=== PATIENT | female | born 1970 | race Caucasian/White ===

== ENCOUNTER → 2016-08-12 | Outpatient (CLI) | payer BC ==
--- NOTE | 2016-08-13 10:34 | MM ---
Reason for exam: screening (asymptomatic). Last mammogram was performed 1 year and 1 month ago. History: Family history of breast cancer in maternal aunt at age 55 and premenopausal breast cancer in maternal grandmother at age 45. Took hormonal contraceptives for 6 years beginning at age 20. Physical Findings: A clinical breast exam by your physician is recommended on an annual basis and results should be correlated with mammographic findings. MG Screening Mammo w CAD Bilateral CC and MLO view(s) were taken. Prior study comparison: July 23, 2015, bilateral MG 3d diag mammo w/cad ELISA. December 17, 2014, left breast MG diagnostic mammo LT w CAD. The breast tissue is extremely dense which could obscure a lesion on mammography. Finding: There are typically benign calcifications in the left breast. No significant changes in finding since July 23, 2015 and December 17, 2014. ASSESSMENT: Benign, BI-RAD 2 RECOMMENDATION: Routine screening mammogram of both breasts in 1 year.
== END | disposition home or self-care (01) ==
LOC: RADMAMWWP 15:39
PROVIDERS: ATTEND Family Medicine
DX: Z12.31 Encounter for screening mammogram for malignant neoplasm of breast (principal)

== ENCOUNTER → 2017-10-14 | Outpatient (CLI) | payer BC ==
--- NOTE | 2017-10-18 07:52 | MM ---
Reason for exam: screening (asymptomatic). Last mammogram was performed 1 year and 2 months ago. History: Family history of breast cancer in maternal aunt at age 55 and premenopausal breast cancer in maternal grandmother at age 45. Took hormonal contraceptives for 6 years beginning at age 20. Physical Findings: A clinical breast exam by your physician is recommended on an annual basis and results should be correlated with mammographic findings. MG 3D Screening Mammo W/Cad Bilateral CC and MLO view(s) were taken. Prior study comparison: August 12, 2016, bilateral MG screening mammo w CAD. July 23, 2015, bilateral MG 3d diag mammo w/cad ELISA. The breast tissue is heterogeneously dense. This may lower the sensitivity of mammography. No significant changes when compared with prior studies. ASSESSMENT: Negative, BI-RAD 1 RECOMMENDATION: Routine screening mammogram of both breasts in 1 year.
== END | disposition home or self-care (01) ==
LOC: RADMAMWWP 13:54
PROVIDERS: ATTEND Family Medicine
DX: Z12.31 Encounter for screening mammogram for malignant neoplasm of breast (principal)
CPT/HCPCS: 77063; 77067

== ENCOUNTER → 2018-01-23 | Outpatient (CLI) | payer BC ==
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
== END | disposition home or self-care (01) ==
LOC: RADMRIMAIN 14:48
PROVIDERS: ATTEND Orthopaedic Surgery
DX: M48.02 Spinal stenosis, cervical region (principal); M99.71 Connective tissue and disc stenosis of intervertebral foramina of cervical region; M50.222 Other cervical disc displacement at C5-C6 level; M47.812 Spondylosis without myelopathy or radiculopathy, cervical region; M50.30 Other cervical disc degeneration, unspecified cervical region
CPT/HCPCS: 72141

== ENCOUNTER → 2018-03-13 | Outpatient (CLI) | payer BC ==
[2018-03-09 13:30] VITALS: BMI 20.5
[2018-03-13 14:03] VITALS: BP 126/78; PULSE 83; RESP 16; TEMP 98.3
--- NOTE | 2018-03-13 14:40 | P.PAINCN ---
History of Present Illness - Reason for Consult Consult date: 03/13/18 - History of Present Illness This is 47 years old female with a chronic history of severe neck pain with radiation to the right upper extremity, started in December 2016 after she was lifting boxes at work, the pain is constant and increases with any neck movement or any activity, she was treated with nonsteroidal anti-inflammatory medications, with only minimal improvement and later on she had physical therapy with some benefit, but she continued to have severe neck pain with occasional headaches, the neck pain that radiated to the right upper extremity associated with numbness and tingling sensation, she denies any fever or night sweats she denies any change in the bowel movement or urination, no motor or sensory deficit Past Medical History Past Medical History: Chest Pain / Angina, GERD/Reflux, Myocardial Infarction ( [place]), Musculoskeletal Disorder, Supraventricular Tachycardia (SVT) Additional Past Medical History / Comment(s): HX SVT HAD ABLATION , "CORONARY ARTERY SPASMS ", KIDNEY STONE. RT NECK PAIN W/ EDEMA IN UPPER SHOULDER, WEAKNESS/NUMBNESS RT HAND. LOWER BACK PAIN. Last Myocardial Infarction Date:: 2013 History of Any Multi-Drug Resistant Organisms: None Reported Past Surgical History: Cardiac Ablation, Cholecystectomy, Hysterectomy Additional Past Surgical History / Comment(s): KIDNEY STONE REMOVED. PARTIAL HYSTERECTOMY Past Anesthesia/Blood Transfusion Reactions: Motion Sickness, Postoperative Nausea & Vomiting (PONV) Smoking Status: Never smoker - Past Family History Father Additional Family Medical History / Comment(s): VALVE REPLACEMENT, ANEURYSM Mother Family Medical History: Cancer Additional Family Medical History / Comment(s): CARDIAC STENTS Medications and Allergies Home Medications Medication Instructions Recorded Confirmed Type Zolpidem Tartrate 10 mg PO HS PRN 02/12/14 03/13/18 History Aspirin EC [Ecotrin Low Dose] 81 mg PO DAILY #30 tablet. 02/14/14 03/13/18 Rx Diltiazem Cd [Cardizem CD] 120 mg PO QAM 03/25/15 03/13/18 History Cyclobenzaprine [Flexeril] 10 mg PO BID PRN 03/09/18 03/13/18 History Duexis 1 tab PO TID PRN 03/09/18 03/13/18 History Allergies Allergy/AdvReac Type Severity Reaction Status Date / Time codeine AdvReac Nausea & Verified 03/13/18 13:54 Vomiting Physical Exam Vitals: Vital Signs Temp Pulse Resp BP Pulse Ox 03/13/18 13:59 98.3 F 83 16 126/78 99 Social history : not smoker , NO ETOH , NO Illegal drugs use . Family history : positive for Review of Systems : 1- Constitutional : no chills , no fever , no night sweats , 2- Ears : no ear discharge , no change in hearing 3-Nose, Mouth ,Throat ; no bleeding gums, no sore throat , no epistaxis , 4-Cardiovascular : Denies chest pain, , no orthopnea , no palpitation 5-Respiratory : Denies cough , no dyspnea , no hemoptysis 6-Gastrointestinal :, no change in bowel habits , no coffee- ground emesis . 7-Genitourinary : No hematuria , no discharge , no incontinence, 8-Musculoskeletal : No gait dysfunction , report low back pain , 9- Neurological : no ataxia , no tremor , no sezure , 10-Psychatric , no suicidal ideation no hallucination 11- Endocrine : no cold intolerence , no polyuria , no polydypsia , 12-Hematologic : no easy bleeding , no easy brusing , 13-Allergic / immunology : no angioedema , no wheezing ,no allergic rhinitis 14-Integumentary : no brttle nails , no change hair / nails , no foot/leg ulcers . Physical Examinations : 1-Constitutional : Cooperative , not in acute distress . 2-HEENT : nech ; supple , no Lymphadenopathy , no Thyromegaly , :eyes , no icterus, no photophobia . ENT : , normal oropharynx , no Thrush 3- Respiratory : Chest clear to auscultations Bilaterally , no wheezing . 4- Cardiovascular : regular rate and rhythem , S1 , S2 , no S3 , no S4. 5- Gastrointestinal: abdomen soft no tenderness , no organomegally . 6- Genitourinary : Defferred . 7-Integumentary : No cellulitis , no ulcers , normal skin turgor , no cyanotic . 8- neurologic : Cranial nerve II to XII intact , no focal neurological deffecit 9-psychatric : alert , oriented X 3 , appropriate affect , intact judgment and insight . 10-Lymphatic : no Lymphadenopathy. 11- musculoskeltal: normal gait Cervical Spine motor stregnth in the deltoid and biceps, normal right side , normal Left side motor stregnth biceps and the wrist extensors normal right side ,normal left side . motor stregnth in the triceps muscle . normal Right side , normal Left side deep tendon reflexes normal at the biceps , normal at Brachioradialis , normal at triceps. positive cervical facet loading test . Lumber spine moter stegnth lower extremities ,thigh and legs 5/5 Right side , 5/5 Left side Results Comments: MRI of the cervical spine done January 2018, C6 7 and C7-T1 disc herniation, cervical spondylosis and foraminal narrowing Assessment and Plan Plan: Assessment and plan= cervical radiculopathy , cervical disc herniation, cervical spondylosis And could benefit from cervical epidural steroid injections under fluoroscopy guidance at C7-T1 , we will do the procedure twice, and if she continued to have pain then we will consider targeting the facetogenic component , Patient currently using Flexeril 10 mg when necessary, and Duexis Time with Patient: Greater than 30 PQRS Measure Charge Sheet Measure #130: Documentation of Current Meds in Medical Chart: Patient's medications documented in chart Measure #226: Tobacco Use: Screen & Cessation Intervention: Pt not a tobacco user Measure #111: Pneumonia Vaccination: Pneumococcal vaccine NOT administered or previously given Measure #47: Advance Care Plan: Advance care planning discussed & documented, pt chose/unable to give Measure #412: Opioid Treatment Agreement: No documentation of signed opioid treatment agreement Measure #408: Opioid Therapy Follow-up Evaluation: Patient had NO f/u eval minimum every 3 months during opioid therapy Measure #317: Preventitive Care & Scrn High Bld Press & F/U: Normal blood pressure, f/u not required Measure #128: Body Mass Index (BMI) Screening & Follow-up: BMI documented ABOVE normal parameters - f/u documented Measure #131: Pain Assessment & Follow-up: Pain positive & plan documented, Follow-up scheduled Measure #431: Unhealthy Alcohol Use Preventative Care & Scrn: Patient not identified as an unhealthy alcohol user PQRS Narrative: Smoking Status Never smoker Do You Want the Pneumonia No Vaccine AT THIS TIME? Blood Pressure 126/78 Pain Intensity [Right 3 Posterior Neck] Scale Used Numeric (1 - 10) Hx Alcohol Use (MH) No: OCCASIONAL. Home Medications: Ambulatory Orders Zolpidem Tartrate 10 mg PO HS PRN 02/12/14 Aspirin EC [Ecotrin Low Dose] 81 mg PO DAILY #30 tablet. 02/14/14 Diltiazem Cd [Cardizem CD] 120 mg PO QAM 03/25/15 Cyclobenzaprine [Flexeril] 10 mg PO BID PRN 03/09/18 Duexis 1 tab PO TID PRN 03/09/18
== END | disposition home or self-care (01) ==
LOC: PNWHC3 13:10
PROVIDERS: ATTEND Specialist
DX: M50.123 Cervical disc disorder at C6-C7 level with radiculopathy (principal); M47.22 Other spondylosis with radiculopathy, cervical region; K21.9 Gastro-esophageal reflux disease without esophagitis; I25.2 Old myocardial infarction; Z90.49 Acquired absence of other specified parts of digestive tract; Z90.710 Acquired absence of both cervix and uterus; Z79.899 Other long term (current) drug therapy; Z79.82 Long term (current) use of aspirin; Z88.5 Allergy status to narcotic agent; Z98.890 Other specified postprocedural states
CPT/HCPCS: 99211

== ENCOUNTER 2018-03-23 06:16 | Day surgery (SDC) | payer BC ==
[2018-03-20 09:48] VITALS: BMI 20.5
[2018-03-23 06:43] VITALS: TEMP 98.1
[2018-03-23] MEDS: LACTATED RINGERS 1,000 ML IV SCH ×2 (06:53→07:00)
[2018-03-23] MEDS ORDERED: LIDOCAINE 1% 20 ML VIAL (10MG/ML) FOR IV START INTRADERMA ONE (06:53)
--- NOTE | 2018-03-23 07:25 | P.PCN ---
Date of Procedure: 03/23/18 Procedure(s) Performed: PROCEDURE 1. Cervical epidural steroid injection under fluoroscopic guidance, C7-T1 2. Cervical epidurogram. PREOPERATIVE DIAGNOSIS: 1- Cervical herniated Disc Diseases 2- Cervical radiculopathy., 3-cervical spondylosis with cervical Facet arthropathy without myelopathy POSTOPERATIVE DIAGNOSIS: : 1- Cervical herniated Disc Diseases , 2- Cervical radiculopathy. 3-,cervical spondylosis with cervical Facet arthropathy without myelopathy ANESTHESIA: Local anesthesia with 1% lidocaine and IV sedation with Versed 2 mg and Fentanyl 50 mcg. EBL 0 PROCEDURE INDICATION: The patient with neck pain and radiculitis unresponsive to conservative treatment consents for procedure. PROCEDURE DESCRIPTION / TECHNIQUE: The patient was seen and identified in the preoperative area. Risks, benefits, complications, including but not limited to infections ,bleeding , allergic reactions to the medications ,and not complete pain releife, and alternatives were discussed with the patient, the patient agreed to proceed with the procedure and signed the consent. Patient was taken to the OR and time out was completed. The patient was placed in the prone position on the procedure table. A pillow was placed under the patients chest to increase the cervical interlaminar space. The cervical area was prepped and draped in the usual sterile fashion. Vital signs were closely monitored during the procedure. Conscious sedation was used during the procedure to decrease patients anxiety. Using anterior-posterior fluoroscopy, the C7-T1 interlaminar space was identified and the skin over this site was marked and then infiltrated with 1% lidocaine subcutaneously. Subsequently, a 20-gauge 3-1/2-inch Tuohy epidural needle was inserted and advanced toward the epidural space by means of the `` hanging-drop technique and guided by AP and lateral fluoroscopy. The correct needle position in the epidural space was verified with the injection of 2 mL of the water soluble contrast dye [id number]-200 and observing an excellent epidurogram with the epidural spread of the dye, after negative aspiration for blood and CSF and in the absence of paresthesias. Again after negative aspiration, mixture containing 20 mg Dexamethasone and 2 ml of preservative- free normal saline injected and a washout of epidurogram was seen. Needle was withdrawn intact, skin was cleansed, and bandages were applied. Complications= none. Disposition= patient was placed in supine position and transferred to the recovery room area in stable condition and there was no evidence of upper or lower extremity motor or sensory deficit after the procedure patient was discharged from recovery room after discharge criteria met and home discharge instructions was given by the staff and patient will follow with the pain clinic in 2-4 weeks
[2018-03-23] MEDS ORDERED: IV FLUID CONTINUATION 1,000 ML IV ONE (07:36)
[2018-03-23 07:49] VITALS: BP 127/84; PULSE 73; RESP 18
--- NOTE | 2018-03-23 08:08 | FL ---
EXAMINATION TYPE: FL guided pain mgmt statistic DATE OF EXAM: 03/23/2018 COMPARISON: NONE HISTORY: Neck pain TECHNIQUE: Fluoroscopy. FINDINGS/IMPRESSION: Fluoroscopic guidance was provided during procedure performed by Dr. Puente. A total of 5 seconds of fluoroscopic time was utilized during the procedure and 1 spot images was ac quired demonstrating localization of the cervical spine.
== END 2018-03-23 07:55 | disposition home or self-care (01) ==
LOC: ORPAIN 06:16
PROVIDERS: ATTEND Specialist
DX: M50.10 Cervical disc disorder with radiculopathy, unspecified cervical region (principal); M47.22 Other spondylosis with radiculopathy, cervical region; K21.9 Gastro-esophageal reflux disease without esophagitis; I47.1 Supraventricular tachycardia; I25.2 Old myocardial infarction; Z79.82 Long term (current) use of aspirin; Z79.899 Other long term (current) drug therapy; Z87.442 Personal history of urinary calculi; Z90.49 Acquired absence of other specified parts of digestive tract; Z90.710 Acquired absence of both cervix and uterus; Z88.5 Allergy status to narcotic agent
CPT/HCPCS: 62321; J2250; J1100; J3010; Q9966

== ENCOUNTER 2018-05-10 07:33 | Day surgery (SDC) | payer BC ==
[2018-05-08 10:52] VITALS: BMI 20.5
[2018-05-10] MEDS ORDERED: LACTATED RINGERS 1,000 ML IV SCH (07:45)
[2018-05-10 07:53] VITALS: RESP 16; TEMP 98.7
[2018-05-10] MEDS ORDERED: LIDOCAINE 1% 20 ML VIAL (10MG/ML) FOR IV START INTRADERMA ONE (07:59)
[2018-05-10] MEDS ORDERED: IV FLUID CONTINUATION 1,000 ML IV ONE ×2 (08:35)
--- NOTE | 2018-05-10 08:42 | P.PCN ---
Date of Procedure: 05/10/18 Surgeon: Gume Norris Description of Procedure: PREOPERATIVE DIAGNOSIS: Cervical radiculopathy Cervical degenerative disc disease POSTOPERATIVE DIAGNOSIS: Cervical radiculopathy Cervical degenerative disc disease PROCEDURE Cervical neural steroid injection under fluoroscopic guidance at the C7-T1 interspace. ANESTHESIA: Local with 1% lidocaine 3 ml and IV sedation with Versed 2 mg, 50 g of fentanyl EBL: Minimal PROCEDURE INDICATION: The patient with cervical radicular symptoms unresponsive to conservative treatment. Fluoroscopy was used to optimize visualization of the needle placement and to maximize safety. PROCEDURE DESCRIPTION / TECHNIQUE: The patient was seen and identified in the preoperative area. Risks, benefits , complications including but not limited to infections ,bleeding ,allergic reaction to the medications ,nerve damage and incomplete pain relief, and alternatives were discussed with the patient. The patient agreed to proceed with the procedure and signed the consent. IV was started, and vital signs were stable. Patient was taken to the OR and time out was completed. The patient was placed in the prone position on procedure table and a pillow was placed under the chest area.. The cervical area was prepped and draped in the usual sterile fashion. Conscious sedation was used during the procedure to decrease patient s anxiety. Vital signs was monitered during the entire procedure. Using anterior-posterior fluoroscopy, the C7-T1 interlaminar space was identified and the skin over this site was marked and then infiltrated with 1% lidocaine subcutaneously. Subsequently, a 20-gauge Tuohy epidural needle was inserted and advanced toward the epidural space using the loss of resistance technique and guided by AP and lateral fluoroscopy. The correct needle position in the epidural space was verified with the injection of contrast and observing an excellent epidurogram with the epidural spread of the dye, after negative aspiration for blood and CSF and in the absence of paresthesias. Again after negative aspiration, a 4 ml mixture containing 80 mg of Decadron and 2 mL of preservative-free normal saline was injected. Needle was withdrawn intact , skin was cleansed, and bandages were applied. COMPLICATIONS: None DISPOSITION / PLANS: The patient was placed in a supine position and transferred to the recovery area in a stable condition for observation. There was no evidence of lower extremity motor or sensory deficit after the procedure. Patient was discharged from the recovery room after meeting discharge criteria. Home discharge instructions were given to the patient by the staff. The patient was reexamined prior to discharge. The patient will schedule a follow up in the clinic in 2-4 weeks. Preoperative Diagnosis: myofascial pain syndrome of right trapezius Postoperative diagnosis: Same Anesthesia: Local Surgeon: Gume Norris MD Indications for procedure: This is a patient with myofascial pain and palpable trigger points in right trapezius muscles. The patient consents for an injection after an explanation of risks including but not limited to bleeding and infection, benefits, and alternatives and the patient has signed a consent form indicating understanding of all of them. Description of procedure: After informed consent was obtained the patient's back was sterilely prepped in the usual fashion with ChloraPrep. 3 trigger points were identified via palpation of the indicated muscles and marked sterilely. Each trigger point was injected with a 25-gauge half inch needle, with 1 mL of solution consisting of 0.5% bupivacaine. The patient's vital signs were stable afterwards and the procedure was tolerated well. Patient was discharged home with follow-up instructions.
[2018-05-10 08:53] VITALS: BP 120/78; PULSE 77
--- NOTE | 2018-05-15 13:23 | FL ---
EXAMINATION TYPE: FL guided pain mgmt statistic DATE OF EXAM: 05/10/2018 COMPARISON: NONE HISTORY: Back pain TECHNIQUE: Fluoroscopy. FINDINGS/IMPRESSION: Fluoroscopic guidance was provided during procedure performed by Dr. Norris. A total of 2 seconds of fluoroscopic time was utilized during the procedure and 1 spot images was acqu ired demonstrating localization of the thoracic spine.
== END 2018-05-10 09:12 | disposition home or self-care (01) ==
LOC: ORPAIN 07:33
PROVIDERS: ATTEND Pain Medicine Pain Medicine
DX: M50.10 Cervical disc disorder with radiculopathy, unspecified cervical region (principal)
CPT/HCPCS: 20552; 62321; J2250; J1030; J3010; Q9966; 20553; 99152

== ENCOUNTER → 2018-06-05 | Outpatient (CLI) | payer BC ==
[2018-06-05 13:23] VITALS: BP 131/74; PULSE 89; RESP 16
--- NOTE | 2018-06-05 15:09 | P.PAINPG ---
Subjective Progress Note Date: 06/05/18 This is a follow-up visit for this ,47 years old female with a chronic history of severe neck pain with radiation to the right upper extremity, started in December 2016 after she was lifting boxes at work, the pain is constant and increases with any neck movement or any activity, she was treated with nonsteroidal anti- inflammatory medications, with only minimal improvement and later on she had physical therapy with some benefit, but she continued to have severe neck pain with occasional headaches, the neck pain that radiated to the right upper extremity associated with numbness and tingling sensation, she denies any fever or night sweats she denies any change in the bowel movement or urination, no motor or sensory deficit, with done epidural steroid injection 3 , she continued to have severe neck pain and currently the pain localized in the right side and is not radiated to the left side, and the pain radiated towards the shoulder blade area on the right side, the intensity of the pain increases with any activity Physical Examinations : 1-Constitutional : Cooperative , not in acute distress . 2-HEENT : nech ; supple , no Lymphadenopathy , no Thyromegaly , :eyes , no icterus, no photophobia . ENT : , normal oropharynx , no Thrush 3- Respiratory : Chest clear to auscultations Bilaterally , no wheezing . 4- Cardiovascular : regular rate and rhythem , S1 , S2 , no S3 , no S4. 5- Gastrointestinal: abdomen soft no tenderness , no organomegally . 6- Genitourinary : Defferred . 7-Integumentary : No cellulitis , no ulcers , normal skin turgor , no cyanotic . 8- neurologic : Cranial nerve II to XII intact , no focal neurological deffecit 9-psychatric : alert , oriented X 3 , appropriate affect , intact judgment and insight . 10-Lymphatic : no Lymphadenopathy. 11- musculoskeltal: normal gait Cervical Spine motor stregnth in the deltoid and biceps, normal right side , normal Left side motor stregnth biceps and the wrist extensors normal right side ,normal left side . motor stregnth in the triceps muscle . normal Right side , normal Left side deep tendon reflexes normal at the biceps , normal at Brachioradialis , normal at triceps. positive cervical facet loading test . Lumber spine moter stegnth lower extremities ,thigh and legs 5/5 Right side , 5/5 Left side MRI of the cervical spine done January 2018, C6 7 and C7-T1 disc herniation, cervical spondylosis and foraminal narrowing Assessment and plan= cervical radiculopathy , cervical disc herniation, cervical spondylosis with cervical facet arthropathy Patient continued to have severe neck pain after cervical epidural steroid injection 3. Patient will be scheduled to have diagnostic medial branch cervical area C4 5, C5 6, C6 7 on the right side (she had pain only on the right Patient currently using Flexeril 10 mg when necessary, and Duexis Objective - Vital Signs Vital signs: Vital Signs Temp Pulse 89 06/05/18 13:13 Resp 16 06/05/18 13:13 BP 131/74 06/05/18 13:13 Pulse Ox 89 L 06/05/18 13:13 Intake & Output 06/04/18 06/05/18 06/05/18 18:59 06:59 18:59 Weight 61.235 kg PQRS Measure Charge Sheet Measure #130: Documentation of Current Meds in Medical Chart: Patient's medications documented in chart Measure #226: Tobacco Use: Screen & Cessation Intervention: Pt not a tobacco user Measure #111: Pneumonia Vaccination: Pneumococcal vaccine NOT administered or previously given Measure #47: Advance Care Plan: Advance care planning discussed & documented, pt chose/unable to give Measure #412: Opioid Treatment Agreement: No documentation of signed opioid treatment agreement Measure #408: Opioid Therapy Follow-up Evaluation: Patient had NO f/u eval minimum every 3 months during opioid therapy Measure #317: Preventitive Care & Scrn High Bld Press & F/U: Normal blood pressure, f/u not required Measure #128: Body Mass Index (BMI) Screening & Follow-up: BMI documented within normal parameters Measure #131: Pain Assessment & Follow-up: Pain positive & plan documented, Follow-up scheduled Measure #431: Unhealthy Alcohol Use Preventative Care & Scrn: Patient not identified as an unhealthy alcohol user PQRS Narrative: Smoking Status Never smoker Do You Want the Pneumonia No Vaccine AT THIS TIME? Blood Pressure 131/74 Pain Intensity [Right Neck] 4 Scale Used Numeric (1 - 10) Hx Alcohol Use (MH) No: OCCASIONAL. Home Medications: Ambulatory Orders Zolpidem Tartrate 10 mg PO HS PRN 02/12/14 Aspirin EC [Ecotrin Low Dose] 81 mg PO DAILY #30 tablet. 02/14/14 Diltiazem Cd [Cardizem CD] 120 mg PO QAM 03/25/15 Cyclobenzaprine [Flexeril] 10 mg PO BID PRN 03/09/18 Duexis 1 each PO TID PRN 03/09/18 Vitamin C 1 tab PO DAILY 06/05/18 Controlled Substance Measures - Controlled Substance Measures Is patient prescribed a controlled substance at discharge?: No When asked, does pt state using other controlled substances?: No If prescribed controlled substance>3 days was MAPS reviewed?: No If Rx opioid, was Start Talking consent form obtained?: No If opioid is for acute pain is fill amount 7 days or less?: No Was information provided regarding opioid addiction?: No
== END | disposition home or self-care (01) ==
LOC: PNWHC3 12:43
PROVIDERS: ATTEND Specialist
DX: M99.71 Connective tissue and disc stenosis of intervertebral foramina of cervical region (principal); M50.123 Cervical disc disorder at C6-C7 level with radiculopathy; M47.22 Other spondylosis with radiculopathy, cervical region; M46.92 Unspecified inflammatory spondylopathy, cervical region; Z79.82 Long term (current) use of aspirin; Z79.899 Other long term (current) drug therapy
CPT/HCPCS: 99211

== ENCOUNTER 2018-06-19 10:04 | Day surgery (SDC) | payer BC ==
[2018-06-16 08:15] VITALS: BMI 20.5
[~2018-06-19 10:04] MED LIST: SODIUM CHLORIDE 0.9% 500 ML 500 ML IV SCH
[2018-06-19 11:00] VITALS: TEMP 97.9
--- NOTE | 2018-06-19 11:41 | P.PCN ---
Date of Procedure: 06/19/18 Procedure(s) Performed: PREOPERATIVE DIAGNOSIS:1- Cervical Spondylosis with Facet Arthropathy.without myelopathy. 2-cervical herniated disc disease. POSTOPERATIVE DIAGNOSIS= same as preop diagnosis. PROCEDURES: Diagnostic right. C4-5 , C5-6, and C6-7 medial branch blocks, with fluoroscopic guidance ANESTHESIA: Local with 1% lidocaine; moderate sedation with Versed. 2 mg , and fentanyl 50 micrograms EBL: Minimal PROCEDURE INDICATION: The patient with neck pain secondary to cervical arthropathy unresponsive to more conservative treatments. PROCEDURE DESCRIPTION / TECHNIQUE: The patient was seen and identified in the preoperative area. Risks, benefits, complications, and alternatives were discussed with the patient, the patient agreed to proceed with the procedure and signed the consent. IV was started. Vital signs remained stable throughout the procedure. Patient was taken to the OR and time out was completed. The patient was placed in the Lateral position on the procedure table. A pillow was placed under the patients chest to increase the cervical interlaminar space. The cervical area was prepped and draped in the usual sterile fashion. Critical pause was taken. Vital signs were closely monitored during the procedure. Conscious sedation was used during the procedure to decrease patients anxiety. Using cross-table lateral fluoroscopy, the centroid of the trapezoid of right C4 , C5 and C6, was identified, marked, and localized with 1% lidocaine 1 ml at each level for skin and Sub Q infiltrations . Subsequently, a 22 G 4 spinal needle was advanced guided by fluoroscopy to the centroid of the trapezoid of Right C3, C4 , C5, C6 . Saltillo tip position was confirmed at the centroid of the trapezoids of Right C4 , C5 ,C6 with anteroposterior fluoroscopy. Subsequently, 2 ml of preservative-free Ropivacaine 0.5% mixed with Depo-medrol 40 mg and half ml of the mixture was injected after negative aspiration for blood and CSF. Saltillo was then removed intact . COMPLICATIONS: No acute complications. DISPOSITION / PLANS: The patient was placed in a supine position and transferred to the recovery area in a stable condition for observation and was discharged from the recovery room after meeting discharge criteria. Home discharge instructions given to the patient by the staff. The patient was reexamined prior to discharge. The patient will schedule a follow up in the clinic in 2-4 weeks.
[2018-06-19 11:47] VITALS: RESP 18
--- NOTE | 2018-06-19 11:50 | FL ---
Fluoroscopy HISTORY: Pain 3 seconds fluoroscopy time supplied to the referring clinician. 1 intraoperative C-arm images docume nt the procedure. See dictated report from anesthesia.
[2018-06-19 13:12] VITALS: PULSE 70
[2018-06-19 13:15] VITALS: BP 122/66
== END 2018-06-19 12:45 | disposition home or self-care (01) ==
LOC: ORPAIN 10:04
PROVIDERS: ATTEND Specialist
DX: M47.812 Spondylosis without myelopathy or radiculopathy, cervical region (principal); M50.20 Other cervical disc displacement, unspecified cervical region; Z88.5 Allergy status to narcotic agent
CPT/HCPCS: 64490; 64491; 64492; J2250; J1030; J3010; 99152

== ENCOUNTER 2018-07-10 08:31 | Day surgery (SDC) | payer BC ==
[2018-07-06 09:35] VITALS: BMI 20.5
[2018-07-10 08:56] VITALS: TEMP 98.8
[2018-07-10] MEDS ORDERED: LACTATED RINGERS 1,000 ML IV ONE (08:58)
--- NOTE | 2018-07-10 09:08 | P.PCN ---
Date of Procedure: 07/10/18 Preoperative Diagnosis: Cervical spondylosis without myelopathy Postoperative Diagnosis: same Procedure(s) Performed: Cervical Medial Branch Block of C4/5 5/6 6/7 Surgeon: Keysha Vergara Description of Procedure: Procedure: Bilateral Cervical Medial Branch Block at C 4-5, 5-6, C6-7 Indications: Neck Pain Surgeon: Keysha Vergaar IV sedation with: versed 2mg Anesthesia: Conscious Sedation Given for Anxiety and fear of needles The patient was seen and examined in the [facility]. Procedure risks and benefits were fully reviewed with patient. The patient understands this is a diagnostic as well as a therapeutic procedure and that the goal of the procedure is to inject medication on to the medial branch or small nerves that go into the facet joints. In this way, we can hopefully identify which of these joints, if any, may be contributing to their pain. Informed consent for the procedure was obtained. The patient was taken into the office fluoroscopy procedure room and placed lateral on the table. Vital signs were closely monitored during the procedure. The skin over the area was prepped with Betadine X 3 and draped in usual sterile manner. Sterile technique was observed throughout procedure. Under fluoroscopic guidance, the target injection areas of the C 4-5, 5-6, C6-7 medial branch nerve locations were visualized in AP, oblique and lateral views. Using biplanar fluoroscopy, a 25 gauge 3.5 inch spinal needle was inserted into proper position where the tip of the needle was located at the midpoint of the quadrangle at each level. After negative aspiration for blood and CSF, 0.5cc of 0.25 % Marcaine was injected into each of the targeted areas. The same procedure was performed on the right side. The needles were withdrawn intact. No complications were noted during the procedure. 2cc of marcaine used total. The patient tolerated procedure well. The patient was placed in supine position and transferred to the recovery area for observation and remained stable until discharged home. Home discharge instructions given to the patient by the staff. The patient was reexamined prior to discharge. The patient will schedule a follow up in the clinic to discuss results and potential RFA.
--- NOTE | 2018-07-10 09:23 | FL ---
EXAMINATION TYPE: FL guided pain mgmt statistic DATE OF EXAM: 07/10/2018 COMPARISON: NONE HISTORY: Neck pain. Fluoroscopic documentation. TECHNIQUE: Fluoroscopy. FINDINGS/IMPRESSION: Fluoroscopic guidance was provided during procedure performed by Dr. Vergara. A total of 9 seconds of fluoroscopic time was utilized during the procedure and 1 spot images was acq uired demonstrating localization of the cervical spine.
[2018-07-10 09:39] VITALS: RESP 18
[2018-07-10 09:45] VITALS: BP 118/78; PULSE 83
[2018-07-10] MEDS ORDERED: IV FLUID CONTINUATION 1,000 ML IV ONE (09:45)
--- NOTE | 2018-07-13 13:24 | CDI ---
Date: 07/13/18 [employer] Sales Manager Name: Nkechi Cabrales Phone: If any questions, call Jerri Aguilar Reservoir Caretaker at [phone] Patient Name: Gopi Alexander Admit Date: 07/10/18 Discharge Date: 07/10/18 ATTENTION: The [facility] Coding Staff appreciate your assistance in clarifying documentation. Please respond to the clarification below the line at the bottom and electronically sign. The [facility] Coding staff will review the response and follow-up if needed. Please note: Queries are made part of the Legal Health Record. If you have any questions, please contact the Reservoir Caretaker. Dear Dr. Vergara, Please provide clarification on the type of sedation used for this patient. The OP note states that Conscious sedation was use. The Pain Procedure Record has MAC checked off under Anesthesia Plan. Please clarify whether it was conscious/Moderate sedation or MAC/unconscious sedation. Conscious sedation was used. Thank you MTDJulian
== END 2018-07-10 09:45 | disposition home or self-care (01) ==
LOC: ORPAIN 08:31
PROVIDERS: ATTEND Hospitalist
DX: M47.812 Spondylosis without myelopathy or radiculopathy, cervical region (principal); Z91.048 Other nonmedicinal substance allergy status; Z88.5 Allergy status to narcotic agent
CPT/HCPCS: 64490; 64491; 64492; J2250

== ENCOUNTER → 2018-08-21 | Outpatient (CLI) | payer BC ==
[2018-08-21 13:22] VITALS: BP 121/85; PULSE 91; RESP 16
--- NOTE | 2018-08-21 14:03 | P.PN ---
Subjective Progress Note Date: 08/21/18 This is a follow-up visit for this ,48 years old female with a chronic history of severe neck pain with radiation to the right upper extremity, started in December 2016 after she was lifting boxes at work, the pain is constant and increases with any neck movement or any activity, she was treated with nonsteroidal anti- inflammatory medications, with only minimal improvement and later on she had physical therapy with some benefit, but she continued to have severe neck pain with occasional headaches, the neck pain that radiated to the right upper extremity associated with numbness and tingling sensation, she denies any fever or night sweats she denies any change in the bowel movement or urination, no motor or sensory deficit, we have done cervical epidural steroid injection 3 , she continued to have severe neck pain , and recently we have done diagnostic medial branch block cervical area she had no benefit from it , for this reason she will not be a good candidate to have radiofrequency ablation of the cervical median branch Physical Examinations : 1-Constitutional : Cooperative , not in acute distress . 2-HEENT : nech ; supple , no Lymphadenopathy , no Thyromegaly , :eyes , no icterus, no photophobia . ENT : , normal oropharynx , no Thrush 3- Respiratory : Chest clear to auscultations Bilaterally , no wheezing . 4- Cardiovascular : regular rate and rhythem , S1 , S2 , no S3 , no S4. 5- Gastrointestinal: abdomen soft no tenderness , no organomegally . 6- Genitourinary : Defferred . 7-Integumentary : No cellulitis , no ulcers , normal skin turgor , no cyanotic . 8- neurologic : Cranial nerve II to XII intact , no focal neurological deffecit 9-psychatric : alert , oriented X 3 , appropriate affect , intact judgment and insight . 10-Lymphatic : no Lymphadenopathy. 11- musculoskeltal: normal gait Cervical Spine motor stregnth in the deltoid and biceps, normal right side , normal Left side motor stregnth biceps and the wrist extensors normal right side ,normal left side . motor stregnth in the triceps muscle . normal Right side , normal Left side deep tendon reflexes normal at the biceps , normal at Brachioradialis , normal at triceps. positive cervical facet loading test . Lumber spine moter stegnth lower extremities ,thigh and legs 5/5 Right side , 5/5 Left side MRI of the cervical spine done January 2018, C6 7 and C7-T1 disc herniation, cervical spondylosis and foraminal narrowing Assessment and plan= cervical radiculopathy , cervical disc herniation, cervical spondylosis with cervical facet arthropathy Patient continued to have severe neck pain after cervical epidural steroid injection 3. Patient had no benefit from the diagnostic medial branch block Patient continued to have severe neck pain she is currently on Motrin 800 mg when necessary , and the pain intensity interfering with her quality of life, patient given prescription for Ultram 50 mg every 8 hours dispense 60 with 1 refill, and patient will be referred to see a neurosurgeon Dr. Avina, and she will follow up with the pain clinic in 2 months PQRS Measure Charge Sheet Measure #130: Documentation of Current Meds in Medical Chart: Patient's medications documented in chart Measure #226: Tobacco Use: Screen & Cessation Intervention: Pt not a tobacco user Measure #111: Pneumonia Vaccination: Pneumococcal vaccine NOT administered or previously given Measure #47: Advance Care Plan: Advance care planning discussed & documented, pt chose/unable to give Measure #412: Opioid Treatment Agreement: she signed opioid treatment agreement Measure #408: Opioid Therapy Follow-up Evaluation: Patient had f/u eval minimum every 3 months during opioid therapy Measure #317: Preventitive Care & Scrn High Bld Press & F/U: Normal blood pressure, f/u not required Measure #128: Body Mass Index (BMI) Screening & Follow-up: BMI documented within normal parameters Measure #131: Pain Assessment & Follow-up: Pain positive & plan documented, Follow-up scheduled Measure #431: Unhealthy Alcohol Use Preventative Care & Scrn: Patient not identified as an unhealthy alcohol user PQRS Narrative: Objective - Vital Signs Vital signs: Vital Signs Temp Pulse 91 08/21/18 13:12 Resp 16 08/21/18 13:12 BP 121/85 08/21/18 13:12 Pulse Ox 99 08/21/18 13:12 Intake & Output 08/20/18 08/21/18 08/21/18 18:59 06:59 18:59 Weight 61.235 kg
== END | disposition home or self-care (01) ==
LOC: PNWHC3 13:00
PROVIDERS: ATTEND Specialist
DX: M50.10 Cervical disc disorder with radiculopathy, unspecified cervical region (principal); M47.22 Other spondylosis with radiculopathy, cervical region; M46.92 Unspecified inflammatory spondylopathy, cervical region; Z79.1 Long term (current) use of non-steroidal anti-inflammatories (NSAID); Z79.899 Other long term (current) drug therapy
CPT/HCPCS: 99211

== ENCOUNTER → 2018-10-16 | Outpatient (CLI) | payer BC ==
[2018-10-16 12:53] VITALS: BP 129/74; PULSE 87; RESP 16
--- NOTE | 2018-10-16 13:12 | P.PN ---
Subjective Progress Note Date: 10/16/18 This is a 48-year-old lady with history of chronic neck pain that did not respond to interventional pain procedures including cervical epidural steroid injection and diagnostic cervical medial branch block. The patient's pain however is well controlled now with tramadol by mouth. The patient takes 2-3 pi lls every week and she uses it sparingly. The patient will see Dr. Avina on November 07 for neurosurgical consultation. Today, pt denies new-onset weakness, bowel/bladder incontinence, or any other signs or symptoms of cauda equina syndrome. There are no signs of acute intoxication, and no indications of medication diversion or overuse. In addition to above, 13-point review of systems is also negative for chest pain, shortness of breath, changes in vision, changes in hearing, new onset weakness, abdominal pain, diarrhea, extreme fatigue, malaise, fever, skin changes, homicidal or suicidal ideation, or bowel or bladder incontinence. Vital Signs: Reviewed in EMR Gen: AAOx3, NAD HEENT: PERRLA,hearing grossly normal Pulm: resp unlabored,CTA Heart:S1,S2, No Mur Neck: supple, trachea midline Neuro exam of the upper extremities: Normal muscle strength bilaterally and symmetrically and normal and symmetrical deep tendon reflexes. Tenderness in the paravertebral musculature: Positive tenderness in the right cervical paravertebral musculature Neuro: CN II-XII grossly intact, Imaging: Reviewed in EMR/chart Assessment: Cervical spondylosis without myelopathy Plan: 1. Explanation: Opioid and psychological risk scores were reviewed. Diagnoses, prognoses, and multiple treatment options including but not limited to physical therapy, interventional therapies, adjuvant medical therapies, narcotic medication therapies, and surgery were discussed with the patient and all questions were answered to the patient's satisfaction. 2. Opioid agreement: Signed with the patient and the patient is warned not to use opioids while driving or before driving and not to combine opioids with benzodiazepines or alcohol. 3. Counseling: The patient was counseled extensively on SMOKING CESSATION, BODY MASS INDEX, EXERCISE. Specifically, the patient was instructed regarding the importance of smoking cessation, obesity, and exercise in the context of both chronic pain and overall health. 4. Procedures: None at this point 5. Consultations: The patient is to see Dr. Avina next month 6. Investigations: None 7. Medications: Continue tramadol 50 mg as needed for pain. The patient still has quite a few pills left . 8. Disposition: Return to clinic in 4 weeks. If she runs out of tramadol before that time we can give her prescription to last her until her next appointment. 9. Maps were reviewed and were appropriate. Controlled Substance Measures Is patient prescribed a controlled substance at discharge?: Yes When asked, does pt state using other controlled substances?: No If prescribed controlled substance>3 days was MAPS reviewed?: Yes If Rx opioid, was Start Talking consent form obtained?: Yes If opioid is for acute pain is fill amount 7 days or less?: No Was information provided regarding opioid addiction?: Yes Objective - Vital Signs Vital signs: Vital Signs Temp Pulse 87 10/16/18 12:43 Resp 16 10/16/18 12:43 BP 129/74 10/16/18 12:43 Pulse Ox
== END | disposition home or self-care (01) ==
LOC: PNWHC3 12:27
PROVIDERS: ATTEND Anesthesiology
DX: G89.29 Other chronic pain (principal); M47.812 Spondylosis without myelopathy or radiculopathy, cervical region
CPT/HCPCS: 99211

== ENCOUNTER → 2018-10-23 | Outpatient (CLI) | payer BC ==
--- NOTE | 2018-10-24 14:18 | MM ---
Reason for exam: screening (asymptomatic). Last mammogram was performed 1 year ago. History: Family history of breast cancer in maternal aunt at age 55 and premenopausal breast cancer in maternal grandmother at age 45. Took hormonal contraceptives for 6 years beginning at age 20. Physical Findings: A clinical breast exam by your physician is recommended on an annual basis and results should be correlated with mammographic findings. MG 3D Screening Mammo W/Cad Bilateral CC and MLO view(s) were taken. Prior study comparison: October 14, 2017, bilateral MG 3d screening mammo w/cad. August 12, 2016, bilateral MG screening mammo w CAD. The breast tissue is heterogeneously dense. This may lower the sensitivity of mammography. Very gradually enlarging oval circumscribed mass measuring 3.5 x 1.4cm at the left axillary tail. ASSESSMENT: Incomplete: need additional imaging evaluation, BI-RAD 0 RECOMMENDATION: Ultrasound of the left breast. [facility] will attempt to contact patient to return for ultrasound.
== END | disposition home or self-care (01) ==
LOC: RADMAMWWP 13:36
PROVIDERS: ATTEND Family Medicine
DX: Z12.31 Encounter for screening mammogram for malignant neoplasm of breast (principal)
CPT/HCPCS: 77063; 77067

== ENCOUNTER → 2018-11-03 | Outpatient (CLI) | payer BC ==
--- NOTE | 2018-11-06 08:50 | USB ---
Reason for exam: additional evaluation requested from abnormal screening. History: Family history of breast cancer in maternal aunt at age 55 and premenopausal breast cancer in maternal grandmother at age 45. Took hormonal contraceptives for 6 years beginning at age 20. Physical Findings: Nurse did not find any significant physical abnormalities on exam. US Breast Workup Limited LT Left limited breast ultrasound including focal area of concern, retroareolar and axilla demonstrates a 0.4 x 0.4 x 0.5cm lesion too small to characterize at 12 o'clock, likely a cyst in dense tissue, 6 month follow up recommended. 2.0cm area of heterogeneous dense accessory tissue correlates to the mammographic finding and present since 2014 however slightly larger on mammogram. 6 month follow up recommended. These results were verbally communicated with the patient and result sheet given to the patient on 11/03/18. ASSESSMENT: Probably benign, BI-RAD 3 RECOMMENDATION: Ultrasound of the left breast in 6 months.
== END | disposition home or self-care (01) ==
LOC: RADUSWWP 14:49
PROVIDERS: ATTEND Family Medicine
DX: R92.8 Other abnormal and inconclusive findings on diagnostic imaging of breast (principal)

== ENCOUNTER → 2018-12-23 | Outpatient (CLI) | payer BC ==
--- NOTE | 2018-12-23 17:14 | MR ---
EXAMINATION TYPE: MR cervical spine wo con DATE OF EXAM: 12/23/2018 COMPARISON: 01/23/2018 HISTORY: Radiculopathy, cervical region TECHNIQUE: Multiplanar, multisequence images of the cervical spine were acquired. FINDINGS: Cervical spine vertebral bodies maintain normal vertebral body height and alignment. Again there is multilevel disc desiccation seen. Bone marrow signal is within normal limits. C2-C3: There is a small central disc osteophyte complex without spinal canal stenosis nor neural fora radha narrowing unchanged from the prior. C3-C4: There is mild uncovertebral hypertrophy and small central disc osteophyte complex without spin al canal stenosis or neural foraminal narrowing is seen on the prior. C4-C5: There is a very small left paracentral disc osteophyte complex and uncovertebral hypertrophy c reating mild left neural foraminal narrowing. Spinal canal and right neural foramen are patent, uncha nged from prior. C5-C6: There is a central disc herniation seen in combination with uncovertebral hypertrophy and face t arthropathy that appears similar in degree to the prior exam. Mild spinal canal stenosis area C6-C7: There is a small right paracentral disc herniation, facet arthropathy and uncovertebral hypert rophy again creating mild spinal canal stenosis and minimal bilateral neural foraminal narrowing. C7-T1: Central disc osteophyte complex is redemonstrated. No significant neural foraminal narrowing o r spinal canal stenosis. Cervical segments are intact. There is normal alignment. Cervical spinal cord is of normal signal. Craniovertebral junction relationships are within normal limits. IMPRESSION: Exam is nearly unchanged from the prior of 01/23/2018 with disc herniations redemonstrated at C4-C5, C 5-C6 and C6-C7 creating mild spinal canal stenosis at C5-C6 and C6-C7 and minimal to mild neural fora radha narrowing at multiple levels.
== END | disposition home or self-care (01) ==
LOC: RADMRIMAIN 14:36
DX: M48.02 Spinal stenosis, cervical region (principal); M50.121 Cervical disc disorder at C4-C5 level with radiculopathy
CPT/HCPCS: 72141

== ENCOUNTER → 2019-01-03 | Outpatient (CLI) | payer BC ==
[2019-01-03 14:17] VITALS: BP 131/85; PULSE 83; RESP 16
--- NOTE | 2019-01-03 15:06 | P.PN ---
Subjective Progress Note Date: 01/03/19 This is a follow-up visit for this ,48 years old female with a chronic history of severe neck pain with radiation to the right upper extremity, started in December 2016 after she was lifting boxes at work, the pain is constant and increases with any neck movement or any activity, she was treated with nonsteroidal anti- inflammatory medications, with only minimal improvement and later on she had physical therapy with some benefit, but she continued to have severe neck pain with occasional headaches, the neck pain that radiated to the right upper extremity associated with numbness and tingling sensation, she denies any fever or night sweats she denies any change in the bowel movement or urination, no motor or sensory deficit, we have done cervical epidural steroid injection 3 , she continued to have severe neck pain , and recently we have done diagnostic medial branch block cervical area she had no benefit from it , for this reason she will not be a good candidate to have radiofrequency ablation of the cervical median branch, patient was referred to see Dr. Avina neurosurgeon, and he ordered a new MRI of the cervical spine which showed that patient had multilevel of cervical herniated disc and multilevel cervical spondylosis with facet arthropathy, patient continued to have physical therapy, she feels some improvement, she is currently on Ultram 50 mg every 8 hours and Flexeril 10 mg twice a day and she was started on Neurontin 100 mg 3 times a day by Dr. Avina, she is scheduled to have nerve conduction study in the next couple of weeks Physical Examinations : 1-Constitutional : Cooperative , not in acute distress . 2-HEENT : nech ; supple , no Lymphadenopathy , no Thyromegaly , :eyes , no icterus, no photophobia . ENT : , normal oropharynx , no Thrush 3- Respiratory : Chest clear to auscultations Bilaterally , no wheezing . 4- Cardiovascular : regular rate and rhythem , S1 , S2 , no S3 , no S4. 5- Gastrointestinal: abdomen soft no tenderness , no organomegally . 6- Genitourinary : Defferred . 7-Integumentary : No cellulitis , no ulcers , normal skin turgor , no cyanotic . 8- neurologic : Cranial nerve II to XII intact , no focal neurological deffecit 9-psychatric : alert , oriented X 3 , appropriate affect , intact judgment and insight . 10-Lymphatic : no Lymphadenopathy. 11- musculoskeltal: normal gait Cervical Spine motor stregnth in the deltoid and biceps, normal right side , normal Left side motor stregnth biceps and the wrist extensors normal right side ,normal left side . motor stregnth in the triceps muscle . normal Right side , normal Left side deep tendon reflexes normal at the biceps , normal at Brachioradialis , normal at triceps. positive cervical facet loading test . Lumber spine moter stegnth lower extremities ,thigh and legs 5/5 Right side , 5/5 Left side MRI of the cervical spine [facility] 2019, Assessment and plan= cervical radiculopathy , cervical disc herniation, cervical spondylosis with cervical facet arthropathy Patient continued to have severe neck pain after cervical epidural steroid injection 3. Patient had no benefit from the diagnostic medial branch block , patient given prescription for Ultram 50 mg every 8 hours dispense 90 with 1 refill, and Flexeril 10 mg twice a day dispense 60 with 1 refill Patient should continue Neurontin 100 mg 3 times a day, patient is scheduled to have nerve conduction study in the next couple of weeks She will follow up with the pain clinic in 2 months for prescription refill and we'll discuss the results of the nerve conduction study Patient given prescription for occupational therapy/physical therapy. PQRS Measure Charge Sheet Measure #130: Documentation of Current Meds in Medical Chart: Patient's medications documented in chart Measure #226: Tobacco Use: Screen & Cessation Intervention: Pt not a tobacco user Measure #111: Pneumonia Vaccination: Pneumococcal vaccine NOT administered or previously given Measure #47: Advance Care Plan: Advance care planning discussed & documented, pt chose/unable to give Measure #412: Opioid Treatment Agreement: she signed opioid treatment agreement Measure #408: Opioid Therapy Follow-up Evaluation: Patient had f/u eval minimum every 3 months during opioid therapy Measure #317: Preventitive Care & Scrn High Bld Press & F/U: Normal blood pressure, f/u not required Measure #128: Body Mass Index (BMI) Screening & Follow-up: BMI documented within normal parameters Measure #131: Pain Assessment & Follow-up: Pain positive & plan documented, Follow-up scheduled Measure #431: Unhealthy Alcohol Use Preventative Care & Scrn: Patient not identified as an unhealthy alcohol user PQRS Narrative: Objective - Vital Signs Vital signs: Vital Signs Temp Pulse 83 01/03/19 14:07 Resp 16 01/03/19 14:07 BP 131/85 01/03/19 14:07 Pulse Ox 98 01/03/19 14:07 Intake & Output 01/02/19 01/03/19 01/03/19 18:59 06:59 18:59 Weight 61.235 kg
== END | disposition home or self-care (01) ==
LOC: PNWHC3 13:40
PROVIDERS: ATTEND Specialist
DX: G89.29 Other chronic pain (principal); M50.20 Other cervical disc displacement, unspecified cervical region; M47.22 Other spondylosis with radiculopathy, cervical region; M46.86 Other specified inflammatory spondylopathies, lumbar region; R51 Headache; Z79.1 Long term (current) use of non-steroidal anti-inflammatories (NSAID); Z79.899 Other long term (current) drug therapy
CPT/HCPCS: 99211

== ENCOUNTER → 2019-02-28 | Outpatient (CLI) | payer BC ==
[2019-02-28 12:59] VITALS: RESP 16
[2019-02-28 13:05] VITALS: BP 125/76; PULSE 85; TEMP 98
--- NOTE | 2019-02-28 13:40 | P.PN ---
Subjective Progress Note Date: 02/28/19 This is a 48-year-old lady with history of neck pain, right shoulder pain with radiation to the right elbow and numbness and tingling in the medial 2 fingers on the right side. The patient had this pain for about 2 years now with no clear precipitating events. She had EMG on upper extremity which showed some changes in the C6 and 7 distribution however the patient's neurosurgeon, Dr. Avina does not think that this is coming from her cervical spine given the mild changes on the cervical spine MRI. He did order an MRI on the right brachial plexus and right shoulder joint. The patient works full-time. She takes 1 tramadol a day if needed for the pain and she tries to limit the usage of tramadol as much as possible. The patient feels that her right arm is weaker than before. Today, pt denies new-onset weakness, bowel/bladder incontinence, or any other signs or symptoms of cauda equina syndrome. There are no signs of acute intoxication, and no indications of medication diversion or overuse. In addition to above, 13-point review of systems is also negative for chest pain, shortness of breath, changes in vision, changes in hearing, new onset weakness, abdominal pain, diarrhea, extreme fatigue, malaise, fever, skin changes, homicidal or suicidal ideation, or bowel or bladder incontinence. Vital Signs: Reviewed in EMR Gen: AAOx3, NAD HEENT: PERRLA,hearing grossly normal Pulm: resp unlabored,CTA Heart:S1,S2, No Mur Neck: supple, trachea midline Neuro exam of the upper extremities: Normal muscle strength bilaterally, normal and symmetrical deep tendon reflexes Straight leg raising test: Bebeto's test: Range of motion of the lumbar spine: Facet loading test: Tenderness in the paravertebral musculature: On the right side of the cervical spine and in the right trapezius muscle Neuro: CN II-XII grossly intact, Imaging: Reviewed in EMR/chart Assessment: Right arm pain, numbness and weakness with unknown cause, rule out right brachial plexus compression for right shoulder pathology Plan: 1. Explanation: Opioid and psychological risk scores were reviewed. Diagnoses, prognoses, and multiple treatment options including but not limited to physical therapy, interventional therapies, adjuvant medical therapies, narcotic m edication therapies, and surgery were discussed with the patient and all questions were answered to the patient's satisfaction. 2. Opioid agreement: Signed with the patient and the patient is warned not to use opioids while driving or before driving and not to combine opioids with benzodiazepines or alcohol. 3. Counseling: The patient was counseled extensively on SMOKING CESSATION, BODY MASS INDEX, EXERCISE. Specifically, the patient was instructed regarding the importance of smoking cessation, obesity, and exercise in the context of both chronic pain and overall health. 4. Procedures: None at this point we will await the MRI results of the right brachial plexus and the right shoulder joint 5. Consultations: None 6. Investigations: Pending MRI on the right shoulder and brachial plexus 7. Medications: Tramadol 50 mg twice a day for the referral 8. Disposition: Return to clinic in 4 weeks 9. Maps were reviewed and were appropriate. Controlled Substance Measures Is patient prescribed a controlled substance at discharge?: Yes When asked, does pt state using other controlled substances?: No If prescribed controlled substance>3 days was MAPS reviewed?: Yes If Rx opioid, was Start Talking consent form obtained?: Yes If opioid is for acute pain is fill amount 7 days or less?: No Was information provided regarding opioid addiction?: Yes Objective - Vital Signs Vital signs: Vital Signs Temp 98 F 02/28/19 13:00 Pulse 85 02/28/19 13:00 Resp 16 02/28/19 13:00 BP 125/76 02/28/19 13:00 Pulse Ox 95 02/28/19 13:00 Intake & Output 02/27/19 02/28/19 02/28/19 18:59 06:59 18:59 Weight 61.235 kg
== END | disposition home or self-care (01) ==
LOC: PNWHC3 12:16
PROVIDERS: ATTEND Anesthesiology
DX: M79.601 Pain in right arm (principal); R20.0 Anesthesia of skin; R53.1 Weakness; Z79.891 Long term (current) use of opiate analgesic
CPT/HCPCS: 99211

== ENCOUNTER → 2019-03-07 | Outpatient (CLI) | payer BC ==
--- NOTE | 2019-03-08 13:07 | MR ---
MR brachial plexus and without contrast HISTORY: Radiculopathy Multiplanar multisequence and postcontrast images obtained through the right brachial plexus. Correlation to cervical MRI dated 12/23/2018 Resolution not optimal special and postcontrast images. No evident mass along the course of the brach ial plexus, there is no abnormal enhancement. Nerve roots and trunks show an unremarkable appearance. Muscle signal, bone marrow signal is maintained. No evident right upper lobe mass. There is normal v ascular enhancement. IMPRESSION: Normal brachial plexus.
== END | disposition home or self-care (01) ==
LOC: RADMRIMAIN 18:07
DX: M54.12 Radiculopathy, cervical region (principal)
CPT/HCPCS: 71552; A9585

== ENCOUNTER → 2019-05-08 | Outpatient (CLI) | payer BC ==
--- NOTE | 2019-05-09 08:24 | USB ---
Reason for exam: follow-up at short interval from prior study. History: Family history of breast cancer in maternal aunt at age 55 and premenopausal breast cancer in maternal grandmother at age 45. Took hormonal contraceptives for 6 years beginning at age 20. Physical Findings: Nurse Summary: 1.5cm palpable lump 1 o'clock, patient states tender x 2 months (nurse TM). US Breast Limited LT Left limited breast ultrasound including focal area of concern, retroareolar and axilla demonstrates a 0.5 x 0.6 x 0.5cm oval, cystic, hypoechoic lesion at 12 o'clock, a 0.7 x 0.9 x 0.3cm oval, cystic lesion at 3:30 and a 0.4 x 0.5 x 0.3cm oval, complex, cystic lesion at 3:30, may be new. These results were verbally communicated with the patient and result sheet given to the patient on 05/08/19. ASSESSMENT: Probably benign, BI-RAD 3 RECOMMENDATION: Ultrasound of the left breast in 6 months. (upper outer quadrant)
== END | disposition home or self-care (01) ==
LOC: RADUSWWP 14:57
PROVIDERS: ATTEND Family Medicine
DX: R92.8 Other abnormal and inconclusive findings on diagnostic imaging of breast (principal)

== ENCOUNTER → 2019-05-17 | Outpatient (CLI) | payer BC ==
[2019-05-17 12:23] VITALS: BP 132/88; PULSE 90; RESP 16
--- NOTE | 2019-05-17 14:48 | P.PAINPG ---
Subjective Progress Note Date: 05/17/19 This is a 48-year-old female who returns from follow-up for neck pain and right shoulder pain with radiation to the right elbow numbness and tingling of the medial 2 fingers of the right side. She has had this for several years with no clear precipitating events. Her neurosurgeon Dr. Avina does not think it's coming from the cervical spine. As had cervical epidurals without good relief. She has recently had a brachial plexus MRI which was unremarkable. She continues to work full-time. At this point she has been referred to vascular surgery to rule out thoracic outlet syndrome. She feels like her pain is bothering her so much that she has sees her left arm to do more tasks. She is using an average of one tramadol per day, and denies any side effects from this medication. Abdomen she does report a back strain within the last few weeks helping her family member move. She does not have any red flag symptoms. Objective - Vital Signs Vital signs: Vital Signs Temp Pulse 90 05/17/19 12:18 Resp 16 05/17/19 12:18 BP 132/88 05/17/19 12:18 Pulse Ox 99 05/17/19 12:18 - Exam Vital Signs: Reviewed in EMR GENERAL: Well appearing, in no acute distress, PSYCH: Mood and affect is appropriate. Awake, alert, and oriented SKIN: Skin color, texture, turgor normal, no rashes or lesions HEENT: Normocephalic, atraumatic. EOM intact CV: No pedal edema RESP: Respirations are unlabored, no audible wheezing GI: Abdomen non-distended MUSCULOSKELETAL: Bilateral upper and lower extremity strength is normal and symmetric. No atrophy or tone abnormalities are noted. Neck: He does have tenderness to palpation over the right neck and right supraspinatus region. Wild test is positive Gait: Gait is anantalgic NEUR: No loss of sensation is noted. Cranial nerves are grossly intact. Assessment and Plan Assessment: Assessment: 1. Right neck and arm pain. Neurosurgeon does not think it's coming from the neck, she is being worked up for thoracic outlet syndrome. 2. Low back pain likely musculoskeletal strain, will reevaluate next visit and will consider imaging if she continues to have pain. Plan: 1. Explanation: Opioid and psychological risk scores were reviewed. Diagnoses, prognoses, and multiple treatment options including but not limited to physical therapy, interventional therapies, adjuvant medical therapies, narcotic medication therapies, and surgery were discussed with the patient and all questions were answered to the patient's satisfaction. 2. Opioid agreement: In place, we did get a urine drug screen today as she has not had one in the past year. 3. Counseling: Patient is extremely active and it works full-time. 4. Procedures: At this time 5. Consultations: None 6. Investigations: Plexus MRI reviewed 7. Medications: Tramadol 50 mg 30 tablets 30 days with 1 refill given today. She was also given a prescription for lidocaine patch. 8. Disposition: Follow-up in 8 weeks PQRS Measure Charge Sheet Measure #226: Tobacco Use: Screen & Cessation Intervention: Pt not a tobacco user Measure #111: Pneumonia Vaccination: Pneumococcal vaccine NOT administered or previously given Measure #47: Advance Care Plan: Advance care planning discussed & documented, pt chose/unable to give Measure #131: Pain Assessment & Follow-up: Pain positive & plan documented, Follow-up scheduled PQRS Narrative: Smoking Status Never smoker Blood Pressure 132/88 Pain Intensity [Lower Back] 9 Pain Intensity [Neck] 8 Scale Used Numeric (1 - 10) Hx Alcohol Use (MH) No: OCCASIONAL. Home Medications: Ambulatory Orders Zolpidem Tartrate 10 mg PO HS PRN 02/12/14 Aspirin EC [Ecotrin Low Dose] 81 mg PO DAILY #30 tablet. 02/14/14 Diltiazem Cd [Cardizem CD] 120 mg PO QAM 03/25/15 Cyclobenzaprine [Flexeril] 5 mg PO BID PRN 03/09/18 traMADol HCl [Ultram] 50 tab PO Q8HR PRN 01/03/19 Ibuprofen [Motrin] 800 mg PO DAILY PRN 05/15/19 Lidocaine Patch 1 patch TOPICAL DIRECTED PRN 05/15/19 Controlled Substance Measures - Controlled Substance Measures Is patient prescribed a controlled substance at discharge?: Yes When asked, does pt state using other controlled substances?: No If prescribed controlled substance>3 days was MAPS reviewed?: Yes
== END | disposition home or self-care (01) ==
LOC: PNWHC3 12:10
PROVIDERS: ATTEND Student in an Organized Health Care Education/Training Program
DX: M54.2 Cervicalgia (principal); M79.601 Pain in right arm; M54.5 Low back pain; Z79.82 Long term (current) use of aspirin; Z79.899 Other long term (current) drug therapy
CPT/HCPCS: 80307; 99211; G0482

== ENCOUNTER → 2019-07-26 | Outpatient (CLI) | payer BC ==
[2019-07-26 11:20] VITALS: BP 126/81; PULSE 91; RESP 16
--- NOTE | 2019-07-31 10:28 | P.PAINPG ---
Subjective Progress Note Date: 07/26/19 This is a 48-year-old female who returns from follow-up for neck pain and right shoulder pain with radiation to the right elbow numbness and tingling of the medial 3 fingers of the right side. She has had this for several years with no clear precipitating events. She believes her symptoms have been gradually worsening. 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 Her neurosurgeon Dr. Avina does not think it's coming from the cervical spine. She was evaluated by a vascular surgeon at [facility], who performed several tests and told her that she likely has thoracic outlet syndrome. He asked her to get an anterior scalene block to confirm the diagnosis. She continues to work full-time. She is using an average of one tramadol per day, and denies any side effects from this medication. She has tried gabapentin in the past, however did not get much benefit and had side effects in the form of fogginess. She also tried cymbalta and had side effect of sweating excessively. ROS is negative for chest pain, shortness of breath, bowel or bladder incontin ence, fevers, chills, night sweats, suicidal or homicidal ideations. Objective Vital Signs: Reviewed in EMR GENERAL: Well appearing, in no acute distress, PSYCH: Mood and affect is appropriate. Awake, alert, and oriented SKIN: Skin color, texture, turgor normal, no rashes or lesions HEENT: Normocephalic, atraumatic. EOM intact CV: No pedal edema RESP: Respirations are unlabored, no audible wheezing GI: Abdomen non-distended MUSCULOSKELETAL: Bilateral upper extremity strength is normal and symmetric. No atrophy or tone abnormalities are noted. Neck: tenderness to palpation over the right neck and right supraspinatus region with trigger points. Dharmesh's test is positive Gait: Gait is anantalgic NEUR: Cranial nerves are grossly intact. Assessment and Plan Assessment: Assessment: 1. Right neck and arm pain. Neurosurgeon does not think it's coming from the neck,vascular surgery evaluation indicates thoracic outlet syndrome. Plan: 1. Explanation: she would like to know about non-operative management for TOS. I informed her that if ASM block is positive, she should seek consultation at [facility] pain clinic, as they might be able to do botox injections to the area. I informed her that we do not perform botox injections here. 2. Opioid agreement: In place 3. Counseling: Patient is extremely active and it works full-time. 4. Procedures: will schedule anterior scalene muscle injection, local anesthetic only, to help determine if TOS is etiology for her symptoms 5. Consultations: None 6. Investigations: none 7. Medications: Tramadol was not refilled at this visit as she still has some left. Prescription for Mobic 7.5mg daily given. In the future, would consider lyrica. 8. Disposition: For above mentioned procedure Objective - Vital Signs Vital signs: Vital Signs Temp Pulse 91 07/26/19 11:13 Resp 16 07/26/19 11:13 BP 126/81 07/26/19 11:13 Pulse Ox 100 07/26/19 11:13 PQRS Measure Charge Sheet Measure #130: Documentation of Current Meds in Medical Chart: Patient's medications documented in chart Measure #226: Tobacco Use: Screen & Cessation Intervention: Pt not a tobacco user Measure #111: Pneumonia Vaccination: Pneumococcal vaccine NOT administered or previously given Measure #47: Advance Care Plan: Advance care planning discussed & documented, pt chose/unable to give Measure #412: Opioid Treatment Agreement: Documented signed opioid trtmnt agreemnt min once during opioid trtmnt Measure #408: Opioid Therapy Follow-up Evaluation: Patient had f/u eval minimum every 3 months during opioid therapy Measure #317: Preventitive Care & Scrn High Bld Press & F/U: Normal blood pressure, f/u not required Measure #128: Body Mass Index (BMI) Screening & Follow-up: BMI documented within normal parameters Measure #131: Pain Assessment & Follow-up: Pain positive & plan documented, Follow-up scheduled Measure #431: Unhealthy Alcohol Use Preventative Care & Scrn: Patient not identified as an unhealthy alcohol user PQRS Narrative: Smoking Status Never smoker Blood Pressure 126/81 Pain Intensity [Right Lower 7 Neck] Scale Used Numeric (1 - 10) Hx Alcohol Use (MH) No: OCCASIONAL. Home Medications: Ambulatory Orders Zolpidem Tartrate 10 mg PO HS PRN 02/12/14 Aspirin EC [Ecotrin Low Dose] 81 mg PO DAILY #30 tablet. 02/14/14 Diltiazem Cd [Cardizem CD] 120 mg PO QAM 03/25/15 Cyclobenzaprine [Flexeril] 5 mg PO BID PRN 03/09/18 traMADol HCl [Ultram] 50 tab PO Q8HR PRN 01/03/19 Ibuprofen [Motrin] 800 mg PO DAILY PRN 05/15/19 Lidocaine Patch 1 patch TOPICAL DIRECTED PRN 05/15/19 Ascorbic Acid [Vitamin C] 1,000 mg PO DAILY 07/23/19 Meloxicam [Mobic] 1 tab PO DAILY PRN 07/26/19 Controlled Substance Measures - Controlled Substance Measures Is patient prescribed a controlled substance at discharge?: No
== END | disposition home or self-care (01) ==
LOC: PNWHC3 11:08
PROVIDERS: ATTEND Anesthesiology
DX: G54.0 Brachial plexus disorders (principal); M79.601 Pain in right arm; M25.511 Pain in right shoulder; M54.2 Cervicalgia; Z79.82 Long term (current) use of aspirin; Z79.899 Other long term (current) drug therapy
CPT/HCPCS: 99211

== ENCOUNTER → 2019-08-21 | Day surgery (SDC) | payer BC ==
[2019-08-20 08:53] VITALS: BMI 20.5
[~2019-08-21] MED LIST changes: +BUPIVACAINE (PF) 0.5% 30 ML VIAL ONE; +IV FLUID CONTINUATION 1,000 ML IV ONE; +LACTATED RINGERS 1,000 ML IV SCH; -SODIUM CHLORIDE 0.9% 500 ML 500 ML IV SCH
[2019-08-21 08:24] VITALS: RESP 16; TEMP 98.2
[2019-08-21 09:20] VITALS: PULSE 86
[2019-08-21 09:34] VITALS: BP 127/81
--- NOTE | 2019-08-22 06:01 | P.PCN ---
Date of Procedure: 08/21/19 Procedure(s) Performed: Procedure= right side anterior scalene muscle block under fluoroscopy guidance. Preoperative diagnoses= right side thoracic outlet syndrome, with possible hypertrophy ,and spasm of the right interscalene muscle. Cervical radiculopathy. Anesthesia= local infiltration with ropivacaine 0.5% one mL for skin and subcutaneous tissue infiltration. Postoperative diagnoses= same as preoperative diagnoses. Indication for the procedure= patient had a history of severe neck pain with rotation to the right upper extremity, and she is diagnosed with Thoracic outlet syndrome, and she was referred to have right side anterior scalene muscle block, Description of the procedure= patient in supine position, neck area prepped with Betadine 3, under sterile technique , local infiltration of the skin and subcutaneous tissue with ropivacaine 0.5% one mL for skin and subcuinfiltration, then 20-gauge PuJunk, needle , advanced under ultrasound, moist the anterior scalene muscle, and after needle placement confirmed under ultrasound total of 8 ML of ropivacaine 0.5% injected intermittently after negative aspiration, patient tolerated the procedure well without any complication.
== END ==
LOC: ORPAIN 08:04
PROVIDERS: ATTEND Specialist
DX: G54.0 Brachial plexus disorders (principal); M62.838 Other muscle spasm; Z90.710 Acquired absence of both cervix and uterus; Z88.5 Allergy status to narcotic agent
CPT/HCPCS: 20550

== ENCOUNTER → 2019-09-04 | Outpatient (CLI) | payer BC ==
[2019-09-04 13:54] VITALS: RESP 16
--- NOTE | 2019-09-05 14:23 | P.PAINPG ---
Subjective Progress Note Date: 09/04/19 This is a 49-year-old female who returns from follow-up for neck pain and right shoulder pain with radiation to the right elbow numbness and tingling of the medial 3 fingers of the right side, suspected to have thoracic outlet syndrome of the right side. She underwent an anterior scalene muscle injection recently and reports significant benefit lasting a few hours. Pain was reduced from 7/10 to 2/10 following the procedure. She has already followed up with her vascular surgeon at [facility] (Dr. Casanova) and is working on scheduling TOS surgery in October. We had prescribed Mobic at last visit, however patient reports no significant benefit from this. ROS is negative for chest pain, shortness of breath, bowel or bladder incontinence, fevers, chills, night sweats, suicidal or homicidal ideations. Objective Vital Signs: Reviewed in EMR GENERAL: Well appearing, in no acute distress, PSYCH: Mood and affect is appropriate. Awake, alert, and oriented SKIN: Skin color, texture, turgor normal, no rashes or lesions HEENT: Normocephalic, atraumatic. EOM intact CV: No pedal edema RESP: Respirations are unlabored, no audible wheezing GI: Abdomen non-distended MUSCULOSKELETAL: Bilateral upper extremity strength is normal and symmetric. No atrophy or tone abnormalities are noted. Neck: tenderness to palpation over the right neck and right supraspinatus region with trigger points. Dharmesh's test is positive on the right side Gait: Gait is anantalgic NEUR: Cranial nerves are grossly intact. Assessment and Plan 1. Right neck and arm pain likely due to right-sided thoracic outlet syndrome, with good response to diagnostic anterior scalene injection. Patient is scheduled to undergo TOS surgery at [facility] in October 2019. 2. Since patient is not getting significant benefit from Mobic, she was asked to stop this. Follow-up: As needed PQRS Measure Charge Sheet Measure #130: Documentation of Current Meds in Medical Chart: Patient's medications documented in chart Measure #226: Tobacco Use: Screen & Cessation Intervention: Pt not a tobacco user Measure #111: Pneumonia Vaccination: Pneumococcal vaccine NOT administered or previously given Measure #47: Advance Care Plan: Advance care planning discussed & documented, pt chose/unable to give Measure #412: Opioid Treatment Agreement: Documented signed opioid trtmnt agreemnt min once during opioid trtmnt Measure #408: Opioid Therapy Follow-up Evaluation: Patient had f/u eval minimum every 3 months during opioid therapy Measure #317: Preventitive Care & Scrn High Bld Press & F/U: Normal blood pressure, f/u not required Measure #128: Body Mass Index (BMI) Screening & Follow-up: BMI documented within normal parameters Measure #131: Pain Assessment & Follow-up: Pain positive & plan documented, Follow-up scheduled Measure #431: Unhealthy Alcohol Use Preventative Care & Scrn: Patient not identified as an unhealthy alcohol user Objective - Vital Signs Vital signs: Vital Signs Temp Pulse Resp 16 09/04/19 13:48 BP Pulse Ox PQRS Measure Charge Sheet PQRS Narrative: Smoking Status Never smoker Pain Intensity [Right Upper 8 Neck] Scale Used Numeric (1 - 10) Hx Alcohol Use (MH) No: OCCASIONAL. Home Medications: Ambulatory Orders Zolpidem Tartrate 10 mg PO HS PRN 02/12/14 Aspirin EC [Ecotrin Low Dose] 81 mg PO DAILY #30 tablet. 02/14/14 Diltiazem Cd [Cardizem CD] 120 mg PO QAM 03/25/15 Cyclobenzaprine [Flexeril] 5 mg PO BID PRN 03/09/18 traMADol HCl [Ultram] 50 tab PO Q8HR PRN 01/03/19 Lidocaine Patch 1 patch TOPICAL DIRECTED PRN 05/15/19 Ascorbic Acid [Vitamin C] 1,000 mg PO DAILY 07/23/19 Meloxicam [Mobic] 1 tab PO DAILY 07/26/19 Famotidine [Pepcid] 20 mg PO DAILY 08/20/19 Controlled Substance Measures - Controlled Substance Measures Is patient prescribed a controlled substance at discharge?: No
== END | disposition home or self-care (01) ==
LOC: PNWHC3 13:09
PROVIDERS: ATTEND Anesthesiology
DX: M54.2 Cervicalgia (principal); M79.603 Pain in arm, unspecified; Z79.82 Long term (current) use of aspirin; Z79.891 Long term (current) use of opiate analgesic; Z79.1 Long term (current) use of non-steroidal anti-inflammatories (NSAID); Z79.899 Other long term (current) drug therapy
CPT/HCPCS: 99211

== ENCOUNTER → 2019-10-19 | Outpatient (CLI) | payer BC ==
--- NOTE | 2019-10-19 13:58 | XR ---
EXAMINATION TYPE: XR chest 2V DATE OF EXAM: 10/19/2019 COMPARISON: 02/12/2014 HISTORY: Chest pain and swelling after right first rib removal for thoracic outlet syndrome TECHNIQUE: Frontal and lateral views of the chest are obtained. FINDINGS: There is no focal air space opacity, pleural effusion, or pneumothorax seen. The cardiac silhouette size is within normal limits. Surgical absence of portions of the right first rib is seen in numerous surgical clips in the supraclavicular region on the right. IMPRESSION: No acute cardiopulmonary process.
== END | disposition home or self-care (01) ==
LOC: RADXRMAIN 13:38
PROVIDERS: ATTEND Surgery Vascular Surgery
DX: G54.0 Brachial plexus disorders (principal); Z48.03 Encounter for change or removal of drains
CPT/HCPCS: 71046

== ENCOUNTER → 2020-03-13 | Outpatient (CLI) | payer BC ==
--- NOTE | 2020-03-18 10:47 | MM ---
Reason for exam: additional evaluation requested from prior study. Last mammogram was performed 1 year and 5 months ago. History: Family history of breast cancer in maternal aunt at age 55 and premenopausal breast cancer in maternal grandmother at age 45. Took hormonal contraceptives for 6 years beginning at age 20. Physical Findings: Nurse Summary: 2.5cm nodule in the left breast at 1 o'clock (nurse alida). MG 3D Diag Mammo W/Cad ELISA Bilateral CC and MLO view(s) were taken. Prior study comparison: November 03, 2018, left breast US breast workup limited LT. October 23, 2018, bilateral MG 3d screening mammo w/cad. July 23, 2015, bilateral MG 3d diag mammo w/cad ELISA. The breast tissue is heterogeneously dense. This may lower the sensitivity of mammography. Finding #1: There is a 41 mm circumscribed oval mass in the upper outer quadrant, posterior position of the left breast. Finding #2: There are typically benign round calcifications in both breasts. Increase in size since November 03, 2018, October 23, 2018, and July 23, 2015. These results were verbally communicated with the patient and result sheet given to the patient on 03/13/20. ASSESSMENT: Incomplete: need additional imaging evaluation, BI-RAD 0 RECOMMENDATION: Ultrasound of the left breast.
--- NOTE | 2020-03-18 10:49 | USB ---
Reason for exam: additional evaluation requested from abnormal screening. History: Family history of breast cancer in maternal aunt at age 55 and premenopausal breast cancer in maternal grandmother at age 45. Took hormonal contraceptives for 6 years beginning at age 20. US Breast LT Left complete breast ultrasound includes all four quadrants, the retroareolar region and axilla. Finding demonstrates a 3.9 x 2.0 x 0.8cm oval, hyperechoic dense area versus other etiology at 1 o'clock, advise sampling as increased in size and painful on mammogram and a 0.8 x 0.6 x 0.3cm cystic lesion at 3 o'clock. These results were verbally communicated with the patient and result sheet given to the patient on 03/13/20. ASSESSMENT: Suspicious, BI-RAD 4 RECOMMENDATION: Ultrasound core biopsy of the left breast. Called Dr. Vega with mammographic findings and has scheduled an appointment for the patient for 04/03/20 at 2:[address] Sutherland. PRELIMINARY REPORT CALLED AND FAXED TO DR. SUTHERLAND ON 03/18/20.
== END | disposition home or self-care (01) ==
LOC: RADMAMWWP 14:18
PROVIDERS: ATTEND Family Medicine
DX: R92.8 Other abnormal and inconclusive findings on diagnostic imaging of breast (principal)
CPT/HCPCS: 77062; 77066

== ENCOUNTER → 2020-04-28 | Day surgery (SDC) | payer BC ==
[2020-04-28 10:33] VITALS: RESP 16
[2020-04-28 12:07] VITALS: BP 123/79; PULSE 77; TEMP 98.6
--- NOTE | 2020-04-28 14:28 | USB ---
EXAMINATION TYPE: US biopsy breast VAD LT, MG post procedure diagnostic mammo LT wo CAD DATE OF EXAM: 04/28/2020 CLINICAL HISTORY: 49-year-old female, palpable, enlarging, tender area posterior upper outer quadrant left breast, R92.8 ABN MAMMO. TECHNIQUE: Ultrasound guided core biopsy of the left breast. COMPARISON: 03/13/2020 FINDINGS: The procedure of ultrasound guided core biopsy was explained to the patient. Benefits, alt ernatives, and risks were discussed. An informed consent was then obtained. The patient was placed in supine positioning for imaging and for the procedure. The overlying skin w as prepped and draped in usual sterile fashion. Lidocaine was used as anesthetic into the skin and s ubcutaneous tissue up to area of concern in the left breast. Under ultrasound guidance, a 13-gauge vacuum-assisted mammotome biopsy gun was used to obtain 4 core samples. Following this, a wing clip was left in lesion. Post procedure mammogram shows that at the site of focal asymmetry, suspected accessory breast tissue . The patient tolerated the procedure well without any immediate complication. The patient was kept in the radiology department for short stay after the procedure and then discharged home in stable condi tion. IMPRESSION: Successful, uncomplicated ultrasound guided core biopsy of palpable, enlarging, tender area in the le ft breast (suspected accessory breast tissue), full pathology results to follow. If benign results, s urgical excision can be considered if this area remains symptomatic.
== END ==
LOC: RADUSWWP 10:13
PROVIDERS: ATTEND Surgery
DX: D24.2 Benign neoplasm of left breast (principal); N64.89 Other specified disorders of breast
CPT/HCPCS: 88305; 77065; 19083; A4648; J2001

== ENCOUNTER → 2020-06-25 | Outpatient (CLI) | payer BC ==
[2020-06-25 08:13] VITALS: BP 152/96; PULSE 85; RESP 18; TEMP 98.8
--- NOTE | 2020-06-25 08:28 | P.PAINPG ---
Subjective Progress Note Date: 06/25/20 This is a 49-year-old female who returns from follow-up for neck pain and right shoulder pain. Seen her since August. In the past she had pain radiating from her neck to her right elbow and tingling and numbness of the medial 3 fingers in the right side suspected thoracic outlet syndrome. We done anterior scalene muscle injection which lasted a few hours. She ended up having thoracic eyelid surgery at [facility]. It did help for some time but she does feel like her pain is back mostly in her head and neck area. Overall her arm and finger pain have subsided, however she has anterior chest pain on the right side as well as neck pain radiating into the occiput. Is described as dull and aching and constant throughout the day. Tramadol does help her, showing takes 1 pill 2-3 times a week. However she is looking for further relief beyond this. ROS is negative for chest pain, shortness of breath, bowel or bladder incontinence, fevers, chills, night sweats, suicidal or homicidal ideations. Objective Vital Signs: Reviewed in EMR GENERAL: Well appearing, in no acute distress, PSYCH: Mood and affect is appropriate. Awake, alert, and oriented SKIN: Skin color, texture, turgor normal, no rashes or lesions HEENT: Normocephalic, atraumatic. EOM intact CV: No pedal edema RESP: Respirations are unlabored, no audible wheezing GI: Abdomen non-distended MUSCULOSKELETAL: Bilateral upper extremity strength is normal and symmetric. No atrophy or tone abnormalities are noted. Neck: tenderness to palpation over the right neck and right supraspinatus region with trigger points. Gait: Gait is anantalgic NEUR: Cranial nerves are grossly intact. MSK: There is to palpation over the right cervical paraspinal muscles. Facet loading positive on the right side. Assessment and Plan - We will proceed with right-sided medial branch block of TON, C3, C4 We will refill her tramadol 50 mg once a day. PQRS Measure Charge Sheet Measure #130: Documentation of Current Meds in Medical Chart: Patient's medications documented in chart Measure #226: Tobacco Use: Screen & Cessation Intervention: Pt not a tobacco user Measure #111: Pneumonia Vaccination: Pneumococcal vaccine NOT administered or previously given Measure #47: Advance Care Plan: Advance care planning discussed & documented, pt chose/unable to give Measure #412: Opioid Treatment Agreement: Documented signed opioid trtmnt agreemnt min once during opioid trtmnt Measure #408: Opioid Therapy Follow-up Evaluation: Patient had f/u eval minimum every 3 months during opioid therapy Measure #317: Preventitive Care & Scrn High Bld Press & F/U: Normal blood pressure, f/u not required Measure #128: Body Mass Index (BMI) Screening & Follow-up: BMI documented within normal parameters Measure #131: Pain Assessment & Follow-up: Pain positive & plan documented, Follow-up scheduled Measure #431: Unhealthy Alcohol Use Preventative Care & Scrn: Patient not identified as an unhealthy alcohol user PQRS Measure Charge Sheet PQRS Narrative: Smoking Status Never smoker Pain Intensity [Right Upper 8 Neck] Scale Used Numeric (1 - 10) Hx Alcohol Use (MH) No: OCCASIONAL. Controlled Substance Measures - Controlled Substance Measures Is patient prescribed a controlled substance at discharge?: No Objective - Vital Signs Vital signs: Vital Signs Temp 98.8 F 06/25/20 08:08 Pulse 85 06/25/20 08:08 Resp 18 06/25/20 08:08 BP 152/96 06/25/20 08:08 Pulse Ox 100 06/25/20 08:08 Intake & Output 06/24/20 06/25/20 06/25/20 18:59 06:59 18:59 Weight 62.596 kg PQRS Measure Charge Sheet PQRS Narrative: Smoking Status Never smoker Blood Pressure 152/96 Pain Intensity [Right Shoulder 6 ] Scale Used Numeric (1 - 10) Hx Alcohol Use (MH) No: OCCASIONAL. Home Medications: Ambulatory Orders Zolpidem Tartrate 10 mg PO HS PRN 02/12/14 Aspirin EC [Ecotrin Low Dose] 81 mg PO DAILY #30 tablet. 02/14/14 traMADol HCl [Ultram] 50 tab PO Q8HR PRN 01/03/19 Lidocaine Patch 1 patch TOPICAL DIRECTED PRN 05/15/19 Ascorbic Acid [Vitamin C] 1,000 mg PO DAILY 07/23/19 Famotidine [Pepcid] 20 mg PO DAILY 08/20/19 Baclofen 5 mg PO DAILY 04/15/20 Diltiazem HCl [Cardizem CD] 120 mg PO Q24HR 04/15/20 Controlled Substance Measures - Controlled Substance Measures Is patient prescribed a controlled substance at discharge?: Yes When asked, does pt state using other controlled substances?: No If prescribed controlled substance>3 days was MAPS reviewed?: Yes If Rx opioid, was Start Talking consent form obtained?: Yes If opioid is for acute pain is fill amount 7 days or less?: No Was information provided regarding opioid addiction?: Yes
== END | disposition home or self-care (01) ==
LOC: PNWHC3 07:55
PROVIDERS: ATTEND Anesthesiology
DX: M54.2 Cervicalgia (principal); M25.511 Pain in right shoulder; R20.0 Anesthesia of skin
CPT/HCPCS: 99211

== ENCOUNTER → 2020-08-06 | Outpatient (CLI) | payer BC ==
[2020-08-06 08:49] VITALS: BP 144/83; PULSE 88; RESP 18; TEMP 98.2
--- NOTE | 2020-08-06 09:14 | P.PN ---
Subjective Progress Note Date: 08/06/20 This is 50 -year-old female who returns from follow-up for neck pain and right shoulder pain. In the past she had pain radiating from her neck to her right elbow and tingling and numbness of the medial 3 fingers in the right side suspected thoracic outlet syndrome. We done anterior scalene muscle injection which lasted a few hours. She ended up having thoracic eyelid surgery at [facility]. It did help for some time but she does feel like her pain is back mostly in her head and neck area. Overall her arm and finger pain have improved significantly, she continued to have neck pain radiating into the occiput. She describes her pain as dull and aching and constant throughout the day. Tramadol does help her, showing takes 1 pill 2-3 times a week. However she is looking for further relief beyond this. Objective - Vital Signs Vital signs: Vital Signs Temp 98.2 F 08/06/20 08:45 Pulse 88 08/06/20 08:45 Resp 18 08/06/20 08:45 BP 144/83 08/06/20 08:45 Pulse Ox 100 08/06/20 08:45 Intake & Output 08/05/20 08/06/20 08/06/20 18:59 06:59 18:59 Weight 62.142 kg - Exam Physical Examinations : -Constitutiona : Cooperative , not in acute distress . -HEENT : nech : supple , no Lymphadenopathy , normal thyroid size . : eyes : no ptosis , no icterus, no photophobia . - neurologic : Cranial nerve II to XII intact , no focal neurological deffecit . -psychatric : alert , oriented X 3 , appropriate affect , intact judgment and insight . -Lymphatic : no Lymphadenopathy . - musculoskeltal : Cervical Spine motor stregnth in the deltoid and biceps, normal right side , normal Left side motor stregnth biceps and the wrist extensors normal right side ,normal left side . motor stregnth in the triceps muscle . normal Right side , normal Left side deep tendon reflexes normal at the biceps , normal at Brachioradialis , normal at triceps. cervical facet loading test: Positive right side. Tenderness over the right occipital nerve Lumber spine moter stegnth lower extremities ,thigh and legs 5/5 Right side , 5/5 Left side Assessment and Plan Plan: Assessment and plan= Cervical spondylosis Cervical degenerative disc disease - We will proceed with right-sided medial branch block of TON, C3, C4 We will refill her tramadol 50 mg once a day dispense 30 with one refill. urine Drug screen ordered today. - PQRS measures = - Patient's medications are documented in the chart. -Tobacco use is negative and counseling.Given. -Patient's has not received pneumococcal vaccine. -Advanced care planning discussed, patient not eligible. -Opiate contract signed. -Pain positive and follow-up visit/procedure is scheduled. -Patient's blood pressure measured [144/83 ] , and documented in the record ,and patient will follow up with the primary care. -Patient's weight was measured and body mass index 20.8 [within the normal limits and counseling was done. and patient instructed to follow-up with the primary care physician. -Patient was not identified as an unhealthy alcohol user Time with Patient: Less than 30
== END | disposition home or self-care (01) ==
LOC: PNWHC3 08:38
PROVIDERS: ATTEND Specialist
DX: M50.30 Other cervical disc degeneration, unspecified cervical region (principal); M47.812 Spondylosis without myelopathy or radiculopathy, cervical region; Z79.1 Long term (current) use of non-steroidal anti-inflammatories (NSAID)
CPT/HCPCS: 80307; 99212; G0482

== ENCOUNTER 2020-08-15 08:54 | Day surgery (SDC) | payer BC ==
[2020-08-13 10:14] VITALS: BMI 20.8
[~2020-08-15 08:54] MED LIST changes: -BUPIVACAINE (PF) 0.5% 30 ML VIAL ONE; -IV FLUID CONTINUATION 1,000 ML IV ONE
[2020-08-15 09:16] VITALS: RESP 16; TEMP 99
[2020-08-15] MEDS ORDERED: LIDOCAINE 1% (10MG/ML) FOR IV START INTRADERMA ONE (09:23)
[2020-08-15] MEDS ORDERED: DEXAMETHASONE SOD PHOSPHATE 10 MG/ML 1 ML VIAL ONE (09:44)
[2020-08-15] MEDS ORDERED: ROPIVACAINE 5MG/ML 20ML VIAL ONE (09:44)
--- NOTE | 2020-08-15 10:09 | P.PCN ---
Date of Procedure: 08/15/20 Surgeon: Imsael Martin Pathology: none sent Condition: stable Disposition: PACU Description of Procedure: Pre and Postoperative diagnoses cervicogenic headache, cervical spondylosis without myelopathy Name of procedure: Cervical medial branch block for C2 , C3 ,C4 and block of the third occipital nerve on the right side Surgeon:Ismael Martin MD Anesthesia: Local with lidocaine 1% only Description of procedure: The patient was seen and identified in the preoperative area. Risks, benefits, complications, and alternatives were discussed with the patient, the patient agreed to proceed with the procedure and signed the consent. IV was started. Vital signs remained stable throughout the procedure. Patient was taken to the OR and time out was completed. The patient was placed in the supine position on the procedure table. . The cervical area was prepped with chloraprep and draped in the usual sterile fashion. Critical pause was taken. Vital signs were closely monitored during the procedure. Conscious sedation was used during the procedure to decrease patients anxiety. The lateral view of fluoroscopy was used to identify the C2 ,C3 and C4 trapezoid shaped cervical articular pillars and the target points were the center of the articular pillars . I used 25-gauge 3-1/2 inch Quincke spinal needle to go through the skin after localizing it with lidocaine 1% and to contact the bone at the above-mentioned target point then the AP view of fluoroscopy was used to verify needle position at the waist of the C2 and C3 vertebral bodies laterally. For the 3rd occipital nerve the target point was at the center of the C2-C3 joint line bilaterally . after contacting bone at the target points mentioned above I injected 0.5 MLS of a solution made up off 3 ml of preservative-free Ropivacaine 0.5% mixed with Dexamethasone 10 mg and half ml of the mixture was injected at each level after negative aspiration for blood and CSF. [place] were then removed intact . COMPLICATIONS: No acute complications. COMMENTS: A copy of needle placement was saved to the C-arm at the radiology department DISPOSITION / PLANS: The patient was placed in a supine position and transferred to the recovery area in a stable condition for observation and was discharged from the recovery room after meeting discharge criteria. Home discharge instructions given to the patient by the staff. The patient was reexamined prior to discharge. The patient will be scheduled for a repeat of this injection in 2- 4 weeks.
[2020-08-15] MEDS ORDERED: IV FLUID CONTINUATION 1,000 ML IV ONE (10:10)
[2020-08-15 10:51] VITALS: BP 112/78; PULSE 71
--- NOTE | 2020-08-15 11:25 | FL ---
EXAMINATION TYPE: FL guided pain mgmt statistic DATE OF EXAM: 08/15/2020 CLINICAL HISTORY: Neck pain. TECHNIQUE: Fluoroscopy. COMPARISON: None. FINDINGS: Fluoroscopic guidance was provided during pain relief procedure performed by Dr. Martin . A total of 10 seconds of fluoroscopic time was utilized during the procedure and 5 spot images are acquired. Images acquired shows needle localization at several levels in the cervical spine. IMPRESSION: As Above.
== END 2020-08-15 10:40 | disposition home or self-care (01) ==
LOC: ORPAIN 08:54
PROVIDERS: ATTEND Anesthesiology
DX: M47.812 Spondylosis without myelopathy or radiculopathy, cervical region (principal); R51.9 Headache, unspecified; Z79.82 Long term (current) use of aspirin; Z90.710 Acquired absence of both cervix and uterus
CPT/HCPCS: 64490; 64491; 64492; J1100; J2795

== ENCOUNTER 2020-09-05 09:27 | Day surgery (SDC) | payer BC ==
[2020-09-04 08:40] VITALS: BMI 20.8
[2020-09-05 09:57] VITALS: TEMP 97.8
[2020-09-05] MEDS ORDERED: LACTATED RINGERS 1,000 ML IV ONE (10:01)
[2020-09-05] MEDS ORDERED: MIDAZOLAM 2 MG/2 ML VIAL ONE (10:35)
[2020-09-05] MEDS ORDERED: methylPREDNISolone ACETATE 40 MG/ML 1 ML VIAL ONE (10:35)
[2020-09-05] MEDS ORDERED: ROPIVACAINE 5MG/ML 20ML VIAL ONE (10:35)
[2020-09-05] MEDS ORDERED: fentaNYL (PF) 50 MCG/ML 2 ML AMP ONE (10:35)
--- NOTE | 2020-09-05 10:56 | P.PCN ---
Date of Procedure: 09/05/20 Procedure(s) Performed: Pre and Postoperative diagnoses cervicogenic headache, cervical spondylosis without myelopathy. procedure: Cervical medial branch block for C2 , C3 ,C4 and block of the third occipital nerve on the right side. Surgeon: Randi Pulido MD. Anesthesia: Moderate sedation with Versed 2 mg and fentanyl 50 g. Description of procedure: The patient was seen and identified in the preoperative area. Risks, benefits, complications, and alternatives were discussed with the patient, the patient agreed to proceed with the procedure and signed the consent. IV was started. Vital signs remained stable throughout the procedure. Patient was taken to the OR and time out was completed. The patient was placed in the lateral position ( Right side up ) on the procedure table. . The cervical area was prepped with chloraprep and draped in the usual sterile fashion. Critical pause was taken. Vital signs were closely monitored during the procedure. Conscious sedation was used during the procedure to decrease patients anxiety. The lateral view of fluoroscopy was used to identify the C2 ,C3 and C4 trapezoid shaped cervical articular pillars and the target points were the center of the articular pillars . I used 25-gauge 3-1/2 inch Quincke spinal needle to go through the skin after localizing it with lidocaine 1% and to contact the bone at the above-mentioned target point then the AP view of fluoroscopy was used to verify needle position at the waist of the C2 and C3 vertebral bodies laterally. For the 3rd occipital nerve the target point was at the center of the C2-C3 joint line . after contacting bone at the target points mentioned above I injected 0.5 MLS of a solution made up off 2 ml of preservative-free Ropivacaine 0.5% mixed with Depo-Medrol 40 mg and half ml of the mixture was injected at each level after negative aspiration for blood and CSF. [place] were then removed intact . COMPLICATIONS: No acute complications. COMMENTS: A copy of needle placement was saved to the C-arm at the radiology de partment DISPOSITION / PLANS: The patient was placed in a supine position and transferred to the recovery area in a stable condition for observation and was discharged from the recovery room after meeting discharge criteria. Home discharge instructions given to the patient by the staff. The patient was reexamined prior to discharge. The patient will be scheduled for a repeat of this injection in 2- 4 weeks.
--- NOTE | 2020-09-05 11:05 | FL ---
EXAMINATION TYPE: FL guided pain mgmt statistic DATE OF EXAM: 09/05/2020 HISTORY: Pain 11sec fluoro time,2 images scanned
[2020-09-05 11:11] VITALS: BP 117/77; PULSE 80; RESP 20
== END 2020-09-05 11:25 | disposition home or self-care (01) ==
LOC: ORPAIN 09:27
PROVIDERS: ATTEND Specialist
DX: R51.9 Headache, unspecified (principal); M47.812 Spondylosis without myelopathy or radiculopathy, cervical region; M54.81 Occipital neuralgia; Z90.710 Acquired absence of both cervix and uterus; Z79.82 Long term (current) use of aspirin
CPT/HCPCS: 64450; 64490; 64491; J2250; J1030; J3010; J2795; 99152

== ENCOUNTER → 2020-10-01 | Outpatient (CLI) | payer BC ==
[2020-10-01 08:26] VITALS: BP 131/75; PULSE 82; RESP 16; TEMP 98.1
--- NOTE | 2020-10-01 19:50 | P.PN ---
Subjective Progress Note Date: 10/01/20 This is 50 -year-old female who returns from follow-up for neck pain and headache ,and right shoulder pain. She states as well as cervicogenic headache cervical spondylosis with cervical facet arthropathy recently we have done diagnostic medial branch block cervical area at C2, C3, C4, and right side third occipital nerve block x2 patient reported that she gets excellent relief she got more than 80% improvement of her neck pain and headache after each block, the pain relief was only for short term, she denies any motor or sensory deficit she denies any fever or night sweats, intensity of the pain increases with neck movement, with activity Objective - Vital Signs Vital signs: Vital Signs Temp 98.1 F 10/01/20 08:21 Pulse 82 10/01/20 08:21 Resp 16 10/01/20 08:21 BP 131/75 10/01/20 08:21 Pulse Ox 100 10/01/20 08:21 Intake & Output 10/01/20 10/01/20 10/02/20 06:59 18:59 06:59 Weight 62.596 kg - Exam Physical Examinations : -Constitutiona : Cooperative , not in acute distress . -HEENT : nech : supple , no Lymphadenopathy , normal thyroid size . : eyes : no ptosis , no icterus, no photophobia . - neurologic : Cranial nerve II to XII intact , no focal neurological deffecit . -psychatric : alert , oriented X 3 , appropriate affect , intact judgment and insight . -Lymphatic : no Lymphadenopathy . - musculoskeltal : Cervical Spine motor stregnth in the deltoid and biceps, normal right side , normal Left side motor stregnth biceps and the wrist extensors normal right side ,normal left side . motor stregnth in the triceps muscle . normal Right side , normal Left side deep tendon reflexes normal at the biceps , normal at Brachioradialis , normal at triceps. cervical facet loading test: Positive right side. Tenderness over the right occipital nerve Lumber spine moter stegnth lower extremities ,thigh and legs 5/5 Right side , 5/5 Left side Assessment and Plan Plan: Assessment and plan= Cervical spondylosis with cervical facet arthropathy without myelopathy Cervicogenic headache Cervical degenerative disc disease Patient had 80% improvement of her neck pain and headache after diagnostic medial branch block cervical area, she will be good candidate to have RFA of the right C2,, C3, C4, and the right third occipital nerve Prescription refill for Ultram 50 mg every 8 hours when necessary dispense 30 with one refill, and prescription refill for Motrin and baclofen. - PQRS measures = - Patient's medications are documented in the chart. -Tobacco use is negative and counseling.Given. -Patient's has not received pneumococcal vaccine. -Advanced care planning discussed, patient not eligible. -Opiate contract signed. -Pain positive and follow-up visit/procedure is scheduled. -Patient's blood pressure measured [131/75 ] , and documented in the record ,and patient will follow up with the primary care. -Patient's weight was measured and body mass index 21% [within the normal limits and counseling was done. and patient instructed to follow-up with the primary care physician. -Patient was not identified as an unhealthy alcohol user Time with Patient: Less than 30
== END | disposition home or self-care (01) ==
LOC: PNWHC3 08:02
PROVIDERS: ATTEND Specialist
DX: M47.812 Spondylosis without myelopathy or radiculopathy, cervical region (principal); M50.30 Other cervical disc degeneration, unspecified cervical region; R51.9 Headache, unspecified
CPT/HCPCS: 99211

== ENCOUNTER 2020-10-24 08:30 | Day surgery (SDC) | payer BC ==
[2020-10-23 08:20] VITALS: BMI 21.4
[2020-10-24 08:54] VITALS: RESP 16; TEMP 98.1
[2020-10-24] MEDS ORDERED: fentaNYL (PF) 50 MCG/ML 2 ML AMP ONE (09:09)
[2020-10-24] MEDS ORDERED: MIDAZOLAM 2 MG/2 ML VIAL ONE (09:09)
[2020-10-24] MEDS ORDERED: methylPREDNISolone ACETATE 40 MG/ML 1 ML VIAL ONE (09:09)
[2020-10-24] MEDS ORDERED: ROPIVACAINE 5MG/ML 20ML VIAL ONE (09:09)
--- NOTE | 2020-10-24 09:46 | P.PCN ---
Date of Procedure: 10/24/20 Procedure(s) Performed: PREOPERATIVE DIAGNOSIS: 1-Cervical spondylosis with Facet Arthropathy without myelopathy. 2-cervical degenerative disc disease. 3-occipital neuralgia POSTOPERATIVE DIAGNOSIS: Cervical spondylosis with Facet Arthropathy without myelopathy. PROCEDURES: Radiofrequency thermocoagulation Right C2 C3, C4, medial branch with Fluroscopy [place](fluoroscopy was available in etiology department ) Radiofrequency thermocoagulation right third occipital nerve (to denervate the facet joint at C2-3 , C3- 4 , Right third occipital nerve) ANESTHESIA: Monitored anesthesia care as per anesthesia department EBL: Minimal PROCEDURE INDICATION: The patient with neck pain secondary to cervical arthropathy who had more than 50% relief of her pain with previous diagnostic cervical medial branch block. PROCEDURE DESCRIPTION / TECHNIQUE: The patient was seen and identified in the preoperative area. Risks, benefits, complications, and alternatives were discussed with the patient, the patient agreed to proceed with the procedure and signed the consent. IV was started. Vital signs remained stable throughout the procedure. Patient was taken to the OR and time out was completed. The patient was placed in the prone position on the procedure table. A pillow was placed under the patients chest to increase the cervical interlaminar space. The cervical area was prepped and draped in the usual sterile fashion. Critical pause was taken. Vital signs were closely monitored during the procedure. Conscious sedation was used during the procedure to decrease patients anxiety. Using cross-table lateral fluoroscopy, the centroid of the trapezoid of Right C2 ,C3, C4, were identified, marked, and localized with 1% lidocaine. Subsequently, a 20 [id number] (VENUM ) radiofrequency cannula with a 10-mm active tip was advanced guided by fluoroscopy to the centroid of the trapezoid of Right C2 ,C3, C4, . Needle tip position was confirmed at the centroid of the trapezoids of Right C2 C3, C4, with anteroposterior fluoroscopy. And for the right third occipital nerve 20-gauge 100 mm (VENUM ) radiofrequency cannula placed at the center of the facet joint between the C2-C3 on the right side, Each site then underwent sensory testing at 50 Hz and 0 to 1 volt and motor testing at 2 Hz and 0 to 3 volt with local stimulation, but no radicular sy mptoms down the arm. Thereafter each sites underwent radiofrequency thermocoagulation at 80 degrees celsius for 90 seconds after injecting 0.5 ml of PF Ropivacaine 0.5 %. After thermocoagulation, 1 ml of the block solution containing Depo-Medrol 40 mg and 4 mL of preservative-free normal saline was injected at the C2 ,C3, C4, Right 3 rd occipital levels after negative aspiration of CSF and blood and with no paresthesias. Cannulas were retracted while injecting lidocaine 1% until the needle is out. Skin was cleansed and bandages were applied. COMPLICATIONS: No acute complications. DISPOSITION / PLANS: The patient was placed in a supine position and transferred to the recovery area in a stable condition for observation and was discharged from the recovery room after meeting discharge criteria. Home discharge instructions given to the patient by the staff. The patient was reexamined prior to discharge. The patient will schedule a follow up in the clinic in 2-4 weeks.
[2020-10-24] MEDS ORDERED: IV FLUID CONTINUATION 1,000 ML IV ONE (09:51)
--- NOTE | 2020-10-24 09:58 | FL ---
EXAMINATION TYPE: FL guided pain mgmt statistic DATE OF EXAM: 10/24/2020 CLINICAL HISTORY: Neck pain. TECHNIQUE: Fluoroscopy. COMPARISON: None. FINDINGS: Fluoroscopic guidance was provided during pain relief procedure performed by Dr. Puente . A total of 6 seconds of fluoroscopic time was utilized during the procedure and 3 spot images are acquired. Images acquired shows needle localization at multiple levels in the cervical spine. IMPRESSION: As Above.
[2020-10-24 10:06] VITALS: BP 128/76; PULSE 80
== END 2020-10-24 10:25 | disposition home or self-care (01) ==
LOC: ORPAIN 08:30
PROVIDERS: ATTEND Specialist
DX: M47.812 Spondylosis without myelopathy or radiculopathy, cervical region (principal); M54.81 Occipital neuralgia; I49.9 Cardiac arrhythmia, unspecified; Z90.710 Acquired absence of both cervix and uterus; Z79.1 Long term (current) use of non-steroidal anti-inflammatories (NSAID); Z79.82 Long term (current) use of aspirin; Z79.891 Long term (current) use of opiate analgesic; Z79.899 Other long term (current) drug therapy; Z88.5 Allergy status to narcotic agent
CPT/HCPCS: 64640; 64633; 64634; J2250; J1030; J3010; J2795

== ENCOUNTER → 2020-11-03 | Outpatient (CLI) | payer BC ==
--- NOTE | 2020-11-05 11:45 | USB ---
Reason for exam: follow-up at short interval from prior study. History: Family history of breast cancer in maternal aunt at age 55 and premenopausal breast cancer in maternal grandmother at age 45. Benign US biopsy breast VAD LT of the left breast, April 28, 2020. Took hormonal contraceptives for 6 years beginning at age 20. Physical Findings: Nurse did not find any significant physical abnormalities on exam. US Breast Limited LT Left limited breast ultrasound including focal area of concern, retroareolar and axilla demonstrates a 3.3 x 2.2 x 0.9cm lesion at 1 o'clock compatible with dense tissue per biopsy. Scanned 1 o'clock previous biopsy site. These results were verbally communicated with the patient and result sheet given to the patient on 11/03/20. ASSESSMENT: Benign, BI-RAD 2 RECOMMENDATION: Follow-up diagnostic mammogram of both breasts in 6 months. Back on schedule for April 2021.
== END | disposition home or self-care (01) ==
LOC: RADUSWWP 14:36
PROVIDERS: ATTEND Surgery
DX: R92.8 Other abnormal and inconclusive findings on diagnostic imaging of breast (principal); N63.20 Unspecified lump in the left breast, unspecified quadrant

== ENCOUNTER → 2020-11-26 | Outpatient (CLI) | payer BC ==
[2020-11-26 08:24] VITALS: BP 127/83; PULSE 99; RESP 18; TEMP 98.1
--- NOTE | 2020-11-26 08:55 | P.PN ---
Subjective Progress Note Date: 11/26/20 This is 50 -year-old female who returns from follow-up for neck pain and headache ,and right shoulder pain. She is Diagnosed with cervicogenic headache cervical spondylosis with cervical facet arthropathy recently we have done RFA medial branch block cervical area at C2, C3, C4, and RFA right side third occipital nerve block , patient reported that she gets excellent relief she got significant improvement of her neck pain and headache after the procedure, currently she is complaining of severe shoulder blade pain on the right side and some muscle spasm in the right-sided cervical area, she denies any motor or sensory deficit she denies any fever or night sweats, intensity of the pain increases with neck movement, with activity Physical Examinations : -Constitutiona : Cooperative , not in acute distress . -HEENT : nech : supple , no Lymphadenopathy , normal thyroid size . : eyes : no ptosis , no icterus, no photophobia . - neurologic : Cranial nerve II to XII intact , no focal neurological deffecit . -psychatric : alert , oriented X 3 , appropriate affect , intact judgment and insight . -Lymphatic : no Lymphadenopathy . - musculoskeltal : Cervical Spine motor stregnth in the deltoid and biceps, normal right side , normal Left side motor stregnth biceps and the wrist extensors normal right side ,normal left side . motor stregnth in the triceps muscle . normal Right side , normal Left side deep tendon reflexes normal at the biceps , normal at Brachioradialis , normal at triceps. cervical facet loading test: Positive right side. Tenderness over the right occipital nerve Multiple trigger point identified in the right side cervical paraspinal muscles on the right side suprascapular muscles area Lumber spine moter stegnth lower extremities ,thigh and legs 5/5 Right side , 5/5 Left side Assessment and Plan Plan: Assessment and plan= Cervical spondylosis with cervical facet arthropathy without myelopathy Cervicogenic headache Cervical degenerative disc disease Myofascial pain syndrome and cervical paraspinal muscles and right suprascapular muscles Patient could benefit from trigger point injection and right-sided cervical paraspinal muscles on the right side suprascapular muscles She could benefit from muscle relaxant Flexeril 5 mg every 4 hours when necessary She could benefit from Motrin 800 mg 3 times a day when necessary Prescription refill for Ultram 50 mg every 8 hours when necessary dispense 30 with one refill, and prescription refill for Motrin and baclofen. - PQRS measures = - Patient's medications are documented in the chart. -Tobacco use is negative and counseling.Given. -Patient's has not received pneumococcal vaccine. -Advanced care planning discussed, patient not eligible. -Opiate contract signed. -Pain positive and follow-up visit/procedure is scheduled. -Patient's blood pressure measured [127/83 ] , and documented in the record ,and patient will follow up with the primary care. -Patient's weight was measured and body mass index 21% [within the normal limits and counseling was done. and patient instructed to follow-up with the primary care physician. -Patient was not identified as an unhealthy alcohol user Time with Patient: Less than 30 Objective - Vital Signs Vital signs: Vital Signs Temp 98.1 F 11/26/20 08:20 Pulse 99 11/26/20 08:20 Resp 18 11/26/20 08:20 BP 127/83 11/26/20 08:20 Pulse Ox 100 11/26/20 08:20 Intake & Output 11/25/20 11/26/20 11/26/20 18:59 06:59 18:59 Weight 63.049 kg
== END ==
LOC: PNWHC3 08:01
PROVIDERS: ATTEND Specialist
DX: M47.812 Spondylosis without myelopathy or radiculopathy, cervical region (principal); G44.89 Other headache syndrome; M50.30 Other cervical disc degeneration, unspecified cervical region; M79.18 Myalgia, other site
CPT/HCPCS: 99211

== ENCOUNTER → 2020-12-30 | Day surgery (SDC) | payer BC ==
[2020-12-29 09:16] VITALS: BMI 20.8
[~2020-12-30] MED LIST changes: +ROPIVACAINE 5MG/ML 20ML VIAL ONE; +methylPREDNISolone ACETATE 40 MG/ML 1 ML VIAL ONE
[2020-12-30 09:26] VITALS: RESP 16; TEMP 98.3
--- NOTE | 2020-12-30 09:47 | P.PCN ---
Date of Procedure: 12/30/20 Procedure(s) Performed: Procedure= trigger point injections, right side cervical paraspinal muscles, right side trapezius muscle, right side suprascapular muscles(total of 6 trigger point identified and injected ) Preoperative diagnosis= 1-myofascial pain syndrome cervical area 2-cervical spondylosis with cervical facet arthropathy Postoperative diagnosis=Same as preop Diagnosis . Complication = none Condition= stable Anesthesia=none . Indication for the procedure= patient complaining of a neck pain she is diagnosed with myofascial pain syndrome and cervical spondylosis with cervical facet arthropathy Exam was positive for multiple trigger point identified in the right side cervical paraspinal muscles and trapezius and suprascapular muscles to the 6 trigger point identified. Description of the procedure= procedure risk and benefits discussed with the patient, including but not limited, risk of infection and bleeding, and ALLERGIC reaction to the medication and not complete pain relief and patient agreed with the preceding patient taking the procedure room sitting position and the neck area prepped with ChloraPrep hexedine 3, then under sterile technique all the trigger point that is identified in the right side cervical paraspinal muscles and right trapezius muscles and right suprascapular muscle each one of them injected with the mixture of ropivacaine 0.5% and Depo-Medrol 40 mg mixed with her and 2 mL of the mixture injected at each trigger point after negative aspiration, an was no paresthesia during the injection, injection done using 25- gauge needle, patient tolerated the procedure well without any complications, she will follow up in the pain clinic in a few weeks
[2020-12-30 09:49] VITALS: BP 124/68; PULSE 89
== END ==
LOC: ORPAIN 09:00
PROVIDERS: ATTEND Specialist
DX: M79.18 Myalgia, other site (principal); M47.812 Spondylosis without myelopathy or radiculopathy, cervical region; I10 Essential (primary) hypertension; E78.5 Hyperlipidemia, unspecified; I73.9 Peripheral vascular disease, unspecified; Z82.49 Family history of ischemic heart disease and other diseases of the circulatory system; F17.210 Nicotine dependence, cigarettes, uncomplicated; R00.2 Palpitations; I77.1 Stricture of artery; J44.9 Chronic obstructive pulmonary disease, unspecified; R09.89 Other specified symptoms and signs involving the circulatory and respiratory systems; Z79.82 Long term (current) use of aspirin; Z79.51 Long term (current) use of inhaled steroids; Z79.899 Other long term (current) drug therapy
CPT/HCPCS: 20553; J1030; J2795

== ENCOUNTER → 2021-01-21 | Outpatient (CLI) | payer BC ==
[2021-01-21 08:15] VITALS: BP 135/78; PULSE 101; RESP 16; TEMP 98.4
--- NOTE | 2021-01-21 08:35 | P.PN ---
Subjective Progress Note Date: 01/21/21 This is 50 -year-old female who returns from follow-up for neck pain and headache ,and right shoulder pain. She is Diagnosed with cervicogenic headache cervical spondylosis with cervical facet arthropathy recently we have done RFA medial branch block cervical area at C2, C3, C4, and RFA right side , she is complaining of severe shoulder blade pain on the right side and some muscle spasm in the right-sided cervical area, and recently we did trigger point injection she continued to have severe muscle spasm after the trigger point injection ,she denies any motor or sensory deficit she denies any fever or night sweats, intensity of the pain increases with neck movement, with activity, she continued to use Ultram 50 mg by mouth daily when necessary Motrin 800 mg twice a day Flexeril 5 mg twice a day, denies any side effect of the medication Physical Examinations : -Constitutiona : Cooperative , not in acute distress . -HEENT : nech : supple , no Lymphadenopathy , normal thyroid size . : eyes : no ptosis , no icterus, no photophobia . - neurologic : Cranial nerve II to XII intact , no focal neurological deffecit . -psychatric : alert , oriented X 3 , appropriate affect , intact judgment and insight . -Lymphatic : no Lymphadenopathy . - musculoskeltal : Cervical Spine motor stregnth in the deltoid and biceps, normal right side , normal Left side motor stregnth biceps and the wrist e xtensors normal right side ,normal left side . motor stregnth in the triceps muscle . normal Right side , normal Left side deep tendon reflexes normal at the biceps , normal at Brachioradialis , normal at triceps. cervical facet loading test: Positive right side. Tenderness over the right occipital nerve Multiple trigger point identified in the right side cervical paraspinal muscles on the right side suprascapular muscles area Lumber spine moter stegnth lower extremities ,thigh and legs 5/5 Right side , 5/5 Left side Assessment and plan= Cervical spondylosis with cervical facet arthropathy without myelopathy Cervicogenic headache Cervical degenerative disc disease Myofascial pain syndrome and cervical paraspinal muscles and right suprascapular muscles Patient could benefit from trigger point injection and right-sided cervical paraspinal muscles on the right side suprascapular muscles She could benefit from muscle relaxant Flexeril 5 mg every 4 hours when necessary She could benefit from Motrin 800 mg 3 times a day when necessary Prescription refill for Ultram 50 mg every 8 hours when necessary dispense 30 with one refill, and prescription refill for Motrin and baclofen. Patient could benefit from physical therapy/massage therapy for the cervical and shoulder area - PQRS measures = - Patient's medications are documented in the chart. -Tobacco use is negative and counseling.Given. -Patient's has not received pneumococcal vaccine. -Advanced care planning discussed, patient not eligible. -Opiate contract signed. -Pain positive and follow-up visit/procedure is scheduled. -Patient's blood pressure measured [135/78 ] , and documented in the record ,and patient will follow up with the primary care. -Patient's weight was measured and body mass index 20.8% [within the normal limits and counseling was done. and patient instructed to follow-up with the primary care physician. -Patient was not identified as an unhealthy alcohol user Time with Patient: Less than 30 Objective - Vital Signs Vital signs: Vital Signs Temp 98.4 F 01/21/21 08:09 Pulse 101 H 01/21/21 08:09 Resp 16 01/21/21 08:09 BP 135/78 01/21/21 08:09 Pulse Ox 99 01/21/21 08:09 Intake & Output 01/20/21 01/21/21 01/21/21 18:59 06:59 18:59 Weight 62.142 kg
== END ==
LOC: PNWHC3 07:59
PROVIDERS: ATTEND Specialist
DX: M47.812 Spondylosis without myelopathy or radiculopathy, cervical region (principal); M50.30 Other cervical disc degeneration, unspecified cervical region; M79.18 Myalgia, other site; R51.9 Headache, unspecified; Z88.5 Allergy status to narcotic agent
CPT/HCPCS: 99211

== ENCOUNTER → 2021-04-22 | Outpatient (CLI) | payer BC ==
[2021-04-22 08:21] VITALS: BP 130/88; PULSE 95; RESP 18; TEMP 98.3
--- NOTE | 2021-04-22 08:37 | P.PN ---
Subjective Progress Note Date: 04/22/21 This is a 50-year-old lady with history of neck and right arm pain status post right thoracic outlet syndrome surgical release. The patient's right arm numbness and pain improved after the surgery which was done about a year ago but recently she has been having increasing pain in the neck area with radiation to the right arm down to below the elbow level with numbness and tingling in a bandlike manner in the right arm. The patient also had cervical medial branch RFA for cervicogenic headache which helped her headache until now. The patient takes Flexeril 10 mg once a day, ibuprofen 800 mg intermittently and tramadol 50 mg twice a day for her pain. Patient denies new-onset weakness, bowel/bladder incontinence, or any other signs or symptoms of cauda equina syndrome. There are no signs of acute intoxication, and no indications of medication diversion or overuse. In addition to above, 13-point review of systems is also negative for chest pain, shortness of breath, changes in vision, changes in hearing, new onset weakness, abdominal pain, diarrhea, extreme fatigue, malaise, fever, skin changes, homicidal or suicidal ideation, or bowel or bladder incontinence. Vital Signs: Reviewed in EMR Gen: AAOx3, NAD HEENT: PERRLA,hearing grossly normal Pulm: resp unlabored Neck: supple, trachea midline Neuro exam of the extremities: Normal and symmetrical muscle strength bilaterally, absent right triceps reflex and reduced brachioradialis reflex on the right side. Straight leg raising test: Bebeto's test: Range of motion of the lumbar spine: Facet loading test: Tenderness in the paravertebral musculature: Tenderness on the right side of the cervical spine and also in the right shoulder area Neuro: CN II-XII grossly intact, Imaging: Reviewed in EMR/chart Assessment: Right cervical radiculopathy Cervical spondylosis without myelopathy Myofascial pain in the cervical and right shoulder area Status post right thoracic outlet syndrome surgical release Plan: 1. Explanation: When patients on opioids, opioid and psychological risk scores were reviewed. Diagnoses, prognoses, and multiple treatment options including but not limited to physical therapy, interventional therapies, adjuvant medical therapies, narcotic medication therapies, and surgery were discussed with the patient and all questions were answered to the patient's satisfaction. 2. Opioid agreement:When patients are prescribed opoids through our clinic, opi oid agreement is signed with the patient and the patient is warned not to use opioids while driving or before driving and not to combine opioids with benzodiazepines or alcohol. 3. Counseling: When patient is smoking or obese, the patient was counseled extensively on SMOKING CESSATION, BODY MASS INDEX, EXERCISE. Specifically, the patient was instructed regarding the importance of smoking cessation, obesity, and exercise in the context of both chronic pain and overall health. The patient is going for a follow-up at the [facility] after her right thoracic outlet surgery and she will try to get the EMG done over there. 4. Procedures: None for now 5. Consultations: None 6. Investigations: I'll send the patient to have an MRI of the cervical spine with and without contrast, EMG of the upper extremities due to her new numbness in the right arm. 7. Medications: Reduce tramadol to 50 mg twice a day, reduce ibuprofen to 800 mg once a day if needed for pain, reduce Flexeril to 10 mg at night. 8. Disposition: Return to clinic in 4 weeks 9. Maps were reviewed and were appropriate. PQRS measures: 1-Patient's medications are documented in the chart. 2-Tobacco use is negative, counseling given 3-Patient has had a pneumococcal vaccine. 4-Advanced care planning discussed, patient unable to give 5-Opioid contract signed with the patient. 6-Pain positive, follow-up visit or procedure scheduled 7-Patient's blood pressure measured and documented above/ normal limits. The patient will follow up with his primary care physician. 8-Patient's weight was measured, and body mass index ABOVE the normal limits, and counseling was done. Patient instructed to follow up with PCP. 9-Patient WAS NOT identified as an unhealthy alcohol user. Controlled Substance Measures Is patient prescribed a controlled substance at discharge?: Yes When asked, does pt state using other controlled substances?: No If prescribed controlled substance>3 days was MAPS reviewed?: Yes If Rx opioid, was Start Talking consent form obtained?: Yes If opioid is for acute pain is fill amount 7 days or less?: No Was information provided regarding opioid addiction?: Yes Objective - Vital Signs Vital signs: Vital Signs Temp 98.3 F 04/22/21 08:08 Pulse 95 04/22/21 08:08 Resp 18 04/22/21 08:08 BP 130/88 04/22/21 08:08 Pulse Ox 99 04/22/21 08:08 Intake & Output 04/21/21 04/22/21 04/22/21 18:59 06:59 18:59 Weight 62.142 kg
== END ==
LOC: PNWHC3 08:03
PROVIDERS: ATTEND Anesthesiology
DX: M47.22 Other spondylosis with radiculopathy, cervical region (principal); M79.18 Myalgia, other site; Z98.890 Other specified postprocedural states; Z88.5 Allergy status to narcotic agent
CPT/HCPCS: 80307; 99212; G0482

== ENCOUNTER → 2021-05-29 | Outpatient (CLI) | payer BC ==
--- NOTE | 2021-05-29 15:42 | XR ---
EXAMINATION TYPE: XR cervical spine comp DATE OF EXAM: 05/29/2021 CLINICAL HISTORY: pain COMPARISON: NONE TECHNIQUE: Frontal, lateral, oblique, swimmers, and open mouth view of the cervical spine are obtaine d. FINDINGS: The cervical spine is visualized in its entirety from C1 thru the top of T1 level. It is s atisfactory in alignment without evidence of acute fracture or dislocation. The pre-vertebral soft t issue appears within normal limits. Mild degenerative changes and spondylosis. The C1-C2 articulation is unremarkable on the open mouth view. The oblique images are within normal limits. IMPRESSION: No acute fracture or dislocation is seen in the cervical spine.ICD 10 NO FRACTURE, INITI AL EVALUATION
== END | disposition home or self-care (01) ==
LOC: RADXRMAIN 15:08
PROVIDERS: ATTEND Specialist
DX: M54.2 Cervicalgia (principal)
CPT/HCPCS: 72050

== ENCOUNTER → 2021-06-25 | Outpatient (CLI) | payer BC ==
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
== END ==
LOC: RADMRIMAIN 15:56
PROVIDERS: ATTEND Anesthesiology
DX: M50.30 Other cervical disc degeneration, unspecified cervical region (principal)
CPT/HCPCS: 72156; A9585

== ENCOUNTER → 2021-07-07 | Outpatient (CLI) | payer BC ==
--- NOTE | 2021-07-07 09:14 | MM ---
Reason for exam: additional evaluation requested from prior study. Last mammogram was performed 1 year and 2 months ago. History: Family history of breast cancer in maternal aunt at age 55 and premenopausal breast cancer in maternal grandmother at age 45. Benign US biopsy breast VAD LT of the left breast, April 28, 2020. Took hormonal contraceptives for 6 years beginning at age 20. Physical Findings: Nurse did not find any significant physical abnormalities on exam. MG 3D Diag Mammo W/Cad ELISA Bilateral CC and MLO view(s) were taken. Prior study comparison: April 28, 2020, left breast MG diagnostic mammo LT wo CAD. March 13, 2020, bilateral MG 3d diag mammo w/cad ELISA. The breast tissue is heterogeneously dense. This may lower the sensitivity of mammography. Finding: There is a typically benign 10 mm equal density (isodense), partially circumscribed round mass located 6 cm from the nipple in the 9 o'clock posterior position of the right breast. Focal asymmetry in the left breast, stable. New finding since April 28, 2020 and March 13, 2020. These results were verbally communicated with the patient and result sheet given to the patient on 07/07/21. ASSESSMENT: Incomplete: need additional imaging evaluation, BI-RAD 0 RECOMMENDATION: Ultrasound of the right breast.
--- NOTE | 2021-07-07 09:16 | USB ---
Reason for exam: additional evaluation requested from abnormal screening. History: Family history of breast cancer in maternal aunt at age 55 and premenopausal breast cancer in maternal grandmother at age 45. Benign US biopsy breast VAD LT of the left breast, April 28, 2020. Took hormonal contraceptives for 6 years beginning at age 20. US Breast Limited BILAT Right limited breast ultrasound including focal area of concern, retroareolar and axilla demonstrates a 1.0 x 1.1 x 0.7cm cystic lesion at 9 o'clock and a 0.7 x 0.7 x 0.6cm cystic lesion at 10 o'clock. Left limited breast ultrasound including focal area of concern, retroareolar and axilla demonstrates a 1.0 x 0.9 x 0.4cm cystic lesion at 1 o'clock and a 3.6 x 2.3 x 0.9cm lesion at 1 o'clock, appears to be dense tissue, biopsy in 04/2020 confirms. These results were verbally communicated with the patient and result sheet given to the patient on 07/07/21. ASSESSMENT: Benign, BI-RAD 2 RECOMMENDATION: Routine screening mammogram of both breasts in 1 year.
== END | disposition home or self-care (01) ==
LOC: RADMAMWWP 07:31
PROVIDERS: ATTEND Family Medicine
DX: N63.15 Unspecified lump in the right breast, overlapping quadrants (principal); N60.01 Solitary cyst of right breast; N60.02 Solitary cyst of left breast; Z80.3 Family history of malignant neoplasm of breast
CPT/HCPCS: 77062; 77066

== ENCOUNTER → 2021-07-08 | Outpatient (CLI) | payer BC ==
[2021-07-08 14:39] VITALS: BP 138/79; PULSE 81; RESP 18; TEMP 98.2
--- NOTE | 2021-07-08 17:26 | P.PN ---
Subjective Progress Note Date: 07/08/21 This is 50 -year-old female, who returns for follow-up visit for neck pain ,and headache ,and right shoulder pain. She is Diagnosed with cervicogenic headache cervical spondylosis with cervical facet arthropathy ,previousely we have done RFA medial branch block cervical area at C2, C3, C4, right side , she is complaining of severe shoulder blade pain on the right side and some muscle spasm in the right-sided cervical area, and previousely we did trigger point injection she continued to have severe muscle spasm after the trigger point injection ,she denies any motor or sensory deficit she denies any fever or night sweats, intensity of the pain increases with neck movement, with activity, she continued to use Ultram 50 mg by mouth daily when necessary Motrin 800 mg twice a day Flexeril 5 mg twice a day, denies any side effect of the medication, was referred last visit to have EMG/nerve conduction study, and it was not conclusive for cervical radiculopathy, but it was positive for left side ulnar nerve segment neuropathy(patient had all her symptoms on the right side ), also patient had MRI of the cervical spine which showed small bulging disc at C5 6 and C6 7 Physical Examinations : -Constitutiona : Cooperative , not in acute distress . -HEENT : nech : supple , no Lymphadenopathy , normal thyroid size . : eyes : no ptosis , no icterus, no photophobia . - neurologic : Cranial nerve II to XII intact , no focal neurological deffecit . -psychatric : alert , oriented X 3 , appropriate affect , intact judgment and insight . -Lymphatic : no Lymphadenopathy . - musculoskeltal : Cervical Spine motor stregnth in the deltoid and biceps, normal right side , normal Left side motor stregnth biceps and the wrist extensors normal right side ,normal left side . motor stregnth in the triceps muscle . normal Right side , normal Left side deep tendon reflexes normal at the biceps , normal at Brachioradialis , normal at triceps. cervical facet loading test: Positive right side. Tenderness over the right occipital nerve Multiple trigger point identified in the right side cervical paraspinal muscles on the right side suprascapular muscles area Lumber spine moter stegnth lower extremities ,thigh and legs 5/5 Right side , 5/5 Left side Assessment and plan= Cervical spondylosis with cervical facet arthropathy without myelopathy Cervicogenic headache Cervical degenerative disc disease Myofascial pain syndrome and cervical paraspinal muscles and right suprascapular muscles She could benefit from muscle relaxant Flexeril 5 mg every 4 hours when necessary Patient will continue her current medication Ultram 50 mg by mouth daily and Motrin 800 mg every 8 hours when necessary Patient will be good candidate for diagnostic medial branch block cervical area on the right side at C4, C5, C6 , and if positive we'll proceed with RFA - PQRS measures = - Patient's medications are documented in the chart. -Tobacco use is negative and counseling.Given. -Patient's has not received pneumococcal vaccine. -Advanced care planning discussed, patient not eligible. -Opiate contract signed. -Pain positive and follow-up visit/procedure is scheduled. -Patient's blood pressure measured [138/79 ] , and documented in the record ,and patient will follow up with the primary care. -Patient's weight was measured and body mass index 20.8% [within the normal limits and counseling was done. and patient instructed to follow-up with the primary care physician. -Patient was not identified as an unhealthy alcohol user Time with Patient: Less than 30 Objective - Vital Signs Vital signs: Vital Signs Temp 98.2 F 07/08/21 14:33 Pulse 81 07/08/21 14:33 Resp 18 07/08/21 14:33 BP 138/79 07/08/21 14:33 Pulse Ox 96 07/08/21 14:33
== END ==
LOC: PNWHC3 14:09
PROVIDERS: ATTEND Specialist
DX: M47.812 Spondylosis without myelopathy or radiculopathy, cervical region (principal); M50.30 Other cervical disc degeneration, unspecified cervical region; M79.18 Myalgia, other site; R51.9 Headache, unspecified; Z88.5 Allergy status to narcotic agent
CPT/HCPCS: 99211

== ENCOUNTER 2021-09-04 11:11 | Day surgery (SDC) | payer BC ==
[2021-09-02 11:57] VITALS: BMI 20.8
[~2021-09-04 11:11] MED LIST changes: -ROPIVACAINE 5MG/ML 20ML VIAL ONE; -methylPREDNISolone ACETATE 40 MG/ML 1 ML VIAL ONE
[2021-09-04 11:29] VITALS: RESP 16; TEMP 98.2
[2021-09-04] MEDS ORDERED: fentaNYL (PF) 50 MCG/ML 2 ML AMP ONE (12:22)
[2021-09-04] MEDS ORDERED: ROPIVACAINE 5MG/ML 20ML VIAL ONE (12:22)
[2021-09-04] MEDS ORDERED: MIDAZOLAM 2 MG/2 ML VIAL ONE (12:22)
[2021-09-04] MEDS ORDERED: methylPREDNISolone ACETATE 40 MG/ML 1 ML VIAL ONE (12:22)
--- NOTE | 2021-09-04 12:38 | P.PCN ---
Date of Procedure: 09/04/21 Procedure(s) Performed: PREOPERATIVE DIAGNOSIS: Cervical Spondylosis with Facet Arthropathy.without myelopathy POSTOPERATIVE DIAGNOSIS: Cervical Spondylosis Facet Arthropathy. Without myelopathy PROCEDURES: Diagnostic right. C4 , C5 , and C6 medial branch blocks, with fluoroscopic guidance (fluoroscopy images available in radiology department ) ( to target the facet joint at Right C4- 5 , C5- 6 )#1st ANESTHESia: Monitored anesthesia care as per anesthesia department EBL: Minimal PROCEDURE INDICATION: The patient with neck pain secondary to cervical arthropathy unresponsive to more conservative treatments. PROCEDURE DESCRIPTION / TECHNIQUE: The patient was seen and identified in the preoperative area. Risks, benefits, complications, and alternatives were discussed with the patient, the patient agreed to proceed with the procedure and signed the consent. IV was started. Vital signs remained stable throughout the procedure. Patient was taken to the OR and time out was completed. The patient was placed in the prone position on the procedure table. A pillow was placed under the patients chest to increase the cervical interlaminar space. The cervical area was prepped and draped in the usual sterile fashion. Critical pause was taken. Vital signs were closely monitored during the procedure. Conscious sedation was used during the procedure to decrease patients anxiety. Using cross-table lateral fluoroscopy, the centroid of the trapezoid of right C4 , C5 and C6, was identified, marked, and localized with 1% lidocaine 1 ml at each level for skin and Sub Q infiltrations . Subsequently, a 25 G 3 spinal needle was advanced guided by fluoroscopy to the centroid of the trapezoid of Right C4 , C5, C6 . Solsberry tip position was confirmed at the centroid of the trapezoids of Right C4 , C5 ,C6 with anteroposterior fluoroscopy. Subsequently, 1.5 ml of preservative-free Ropivacaine 0.5% mixed with Depo- Medrol 40 mg and half ml of the mixture was injected after negative aspiration for blood and CSF. Solsberry was then removed intact . COMPLICATIONS: No acute complications DISPOSITION / PLANS: The patient was placed in a supine position and transferred to the recovery area in a stable condition for observation and was discharged from the recovery room after meeting discharge criteria. Home discharge instructions given to the patient by the staff. The patient was reexamined prior to discharge. The patient will schedule a follow up in the clinic in 2-4 weeks.
[2021-09-04] MEDS ORDERED: IV FLUID CONTINUATION 800 ML IV ONE (12:43)
[2021-09-04 12:45] VITALS: BP 132/79; PULSE 84
--- NOTE | 2021-09-04 12:54 | FL ---
Fluoroscopy INDICATION: Pain FINDINGS: Fluoroscopy time: Not provided seconds. Images obtained: 2. IMPRESSIONS: 1. Documentation of fluoroscopy.
== END 2021-09-04 13:11 | disposition home or self-care (01) ==
LOC: ORPAIN 11:11
PROVIDERS: ATTEND Specialist
DX: M47.812 Spondylosis without myelopathy or radiculopathy, cervical region (principal)
CPT/HCPCS: 64490; 64491; J2250; J1030; J3010; J2795

== ENCOUNTER → 2021-09-30 | Outpatient (CLI) | payer BC ==
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
[2021-09-30 09:07] VITALS: BP 127/86; PULSE 84; RESP 18; TEMP 98.4
== END ==
LOC: PNWHC3 08:00
PROVIDERS: ATTEND Physician Assistant Medical
DX: M51.36 Other intervertebral disc degeneration, lumbar region (principal); M47.816 Spondylosis without myelopathy or radiculopathy, lumbar region; G89.29 Other chronic pain; Z79.891 Long term (current) use of opiate analgesic; Z88.5 Allergy status to narcotic agent
CPT/HCPCS: 99211

== ENCOUNTER → 2021-11-25 | Outpatient (CLI) | payer BC ==
[2021-11-25 08:53] VITALS: BP 140/74; PULSE 89; RESP 18
--- NOTE | 2021-11-25 08:55 | P.PN ---
Subjective Progress Note Date: 11/25/21 Principal diagnosis: A 51 yr old female with a history of severe and chronic neck pain secondary to cervical degenerative disc diseases and spondylosis with facet arthropathy presents today for evaluation status post bilateral facet blocks and we'll branches C4-C5, C5-C6 #2. Patient states she experienced 75% pain relief x 1 week status post procedure. Pain level is currently at 4 out of 10 in intensity, achy, throbbing in character in the lower aspects of the cervical s pine with shooting pain to the right shoulder and right upper extremity. Pain escalates as high as 7 out of 10 in intensity with accompanying tingling and numbness with lifting or extension. Pain is alleviated with indications, topical lidocaine patches, injections, ice, heat, physical therapy 2020, chiropractic treatments every 3 weeks, home-based stretching regimen, massage therapy 1 month ago and rest. Interventional pain procedures completed include facet blocks of the medial branches C4-C5, C5-C6 #2 Patient is currently on tramadol, Motrin 800 mg, Flexeril Patient denies any side effects of the medication(s), denies excessive drowsiness or sleepiness, denies suicidal ideation and reports that the current pain medication is helping to control the pain and improve activities of daily living. Patient denies any motor or sensory deficits. Patient denies any fever or night sweats, denies any change in the bowel movements or urination. Physical Examination: -Constitutional: Cooperative. Not in acute distress . -HEENT: Neck is supple. No lymphadenopathy. No thyromegaly. Normal thyroid size. Eyes: No ptosis , no icterus, no photophobia. ENT: No auditory deficits. Normal oropharynx. No Thrush. - Respiratory: Chest clear to auscultations bilaterally. No wheezing. No rhonchi. - Cardiovascular: Regular rate and rhythm. S1 / S2 , no S3 , no S4. - Gastrointestinal: Abdomen soft no tenderness. Bowel sounds positive in all four quadrants. No organomegaly. - Genitourinary: Deferred. - Neurologic: Cranial nerve II to XII intact. No focal neurological deficits. - Psychatric: Alert & oriented x 3. Matching mood & appropriate affect. Judgment and insight intact. - Lymphatic: No Lymphadenopathy. - Musculoskeletal: Cervical spine: Muscle bulk/ tone/ strength in the bilateral upper extremities normal. Facet loading test cervical area positive. Lumbar spine: Motor bulk/ tone/ strength lower extremities , thigh and legs : 5/5 Deep tendon reflexes : Normal Knee Jerk. Normal Ankle Jerk . Vertebral body tenderness to palpation over Lumbar Facet Loading Test positive Straight Leg Raise: positive at 30 degrees right side/ left side Gaenslen's Test positive Sacral spine : Severe tenderness over the Sacroiliac joint: right side / left side Range of motion: Flexion of the lumbar spine <60 degrees Range of motion: Extension of the lumbar spine <20 degrees Gaenslen's Test positive Farhan test: positive right side / left side Assessment and plan: Chronic neck pain secondary to cervical degenerative disc disease , spondylosis with facet arthropathy without myelopathy Recommendation of RFA bilateral C4-C5, C5-C6. Risks, benefits of procedure discussed and patient verbalized understanding. Admits to aspirin 81 mg use. Denies medical history of diabetes. Protocol for discontin uation/continuation of medications alexandra procedure discussed. All patient questions answered MAPS reviewed and it was appropriate. I have spent 31 minutes on patient care today. Dr Puente was available by phone for the evaluation of this patient. The time was used to review the medical records including relevant urine studies and Prescription history (MAPs), review of the available imaging, evaluation and examination of the patient, coordination of care with the medical staff and if applicable referring physicians, as well as creation of the medical record PQRS Measure Charge Sheet Mode of Arrival: Ambulatory PQRS Narrative: Smoking Status Never smoker Narcotic Agreement Date Signed 04/22/21 Blood Pressure 140/74 Pain Intensity [Right Neck] 4 Scale Used Numeric (1 - 10) Hx Alcohol Use (MH) No: OCCASIONAL. Home Medications: Ambulatory Orders Zolpidem Tartrate 10 mg PO HS PRN 02/12/14 Aspirin EC [Ecotrin Low Dose] 81 mg PO DAILY #30 tablet. 02/14/14 Ascorbic Acid [Vitamin C] 1,000 mg PO DAILY 07/23/19 Famotidine [Pepcid] 20 mg PO DAILY 08/20/19 Diltiazem HCl [Cardizem CD] 120 mg PO DAILY 04/15/20 Ibuprofen [Motrin] 800 mg PO Q12H PRN #60 tab 07/08/21 Cyclobenzaprine [Flexeril] 5 mg PO BID PRN 09/02/21 Lidocaine 5% Patch [Lidoderm 5% Patch] 1 patch TOPICAL DAILY PRN 30 Days #30 patch 02/23/22 traMADol HCl [Ultram] 50 tab PO Q24HR PRN 30 Days #30 tab 09/30/21
== END ==
LOC: PNWHC3 08:08
PROVIDERS: ATTEND Specialist
DX: G89.29 Other chronic pain (principal); M50.30 Other cervical disc degeneration, unspecified cervical region; M47.812 Spondylosis without myelopathy or radiculopathy, cervical region; Z88.5 Allergy status to narcotic agent
CPT/HCPCS: 99211

== ENCOUNTER → 2022-01-18 | Outpatient (CLI) | payer BC ==
--- NOTE | 2022-01-18 08:25 | P.PAINPG ---
PQRS Measure Charge Sheet Comment: A 51 yr old female with a history of severe and chronic neck pain secondary since 2016 to degenerative disc diseases and spondylosis with facet arthropathy presents today for medication refills. Pain level is currently at 2 out of 10 in intensity, sharp, burning, achy sensation in the right aspect of the lower cervical spine with radiation of sharp shooting pain to the right shoulder and right upper extremity. Pain is provoked by lifting, overhead reaching and hyperextension. Pain is alleviated with medications, topical patches, topicals, injections, alternating ice/ heat, home exercise regimen, chiropractic treatments every 3 weeks, massage therapy every 3 weeks, repositioning and rest. Interventional pain procedures completed include R C4-C5, C5 to C6 facet blocks medial branches, TPIs of cervical spine. Patient is currently on tramadol, Flexeril, ibuprofen. Patient denies any side effects of the medication(s), denies excessive drowsiness or sleepiness, denies suicidal ideation and reports that the current pain medication is helping to control the pain and improve activities of daily living. Patient denies any motor or sensory deficits. Patient denies any fever or night sweats, denies any change in the bowel movements or urination. Physical Examination: -Constitutional: Cooperative. Not in acute distress . -HEENT: Neck is supple. No lymphadenopathy. No thyromegaly. Normal thyroid size. Eyes: No ptosis , no icterus, no photophobia. ENT: No auditory deficits. Normal oropharynx. No Thrush. - Respiratory: Chest clear to auscultations bilaterally. No wheezing. No rhonchi. - Cardiovascular: Regular rate and rhythm. S1 / S2 , no S3 , no S4. - Gastrointestinal: Abdomen soft no tenderness. Bowel sounds positive in all four quadrants. No organomegaly. - Genitourinary: Deferred. - Neurologic: Cranial nerve II to XII intact. No focal neurological deficits. - Psychatric: Alert & oriented x 3. Matching mood & appropriate affect. Judgment and insight intact. - Lymphatic: No Lymphadenopathy. - Musculoskeletal: Cervical spine: Muscle bulk/ tone/ strength in the bilateral upper extremities normal Vertebral body tenderness to palpation over Facet loading test positive on the R Spurling test positive on the R Thoracic spine Muscle bulk / tone/ strength in the bilateral paraspinal muscles normal Vertebral body tender to palpation over Facet loading test positive Lumbar spine: Motor bulk/ tone/ strength lower extremities , thigh and legs : 5/5 Deep tendon reflexes : Normal Knee Jerk. Normal Ankle Jerk . Vertebral body tenderness to palpation over Lumbar Facet Loading Test positive Straight Leg Raise: positive at 30 degrees right side/ left side Gaenslen's Test positive Sacral spine : Severe tenderness over the Sacroiliac joint: right side / left side Range of motion: Flexion of the lumbar spine <60 degrees Range of motion: Extension of the lumbar spine <20 degrees Gaenslen's Test positive Bebeto's Test positive Farhan test: positive right side / left side Thigh Thrust Test Sacral Thrust Test Assessment and plan: Chronic neck pain secondary to degenerative disc disease , spondylosis with facet arthropathy without myelopathy Chronic and current use of high-risk medication (Opioids). The patient was counseled about risk of opioid use, psychological risk associated with opioids and was orally counseled to not overuse , divert or sell medications. Pt is to store medication in a safe location. The patient is counseled against driving while using narcotic medications and also not to use alcohol or any illicit recreational drugs. Patient verbalized understanding that the lack of compliance will result in failure to renew narcotic prescription(s) as well as possible discharge from the clinic Diagnoses, prognosis and treatment options including but not limited to physical therapy, surgical interventions, interventional therapies and medication management including narcotics and adjuvant medication were discussed. All patient questions answered MAPS reviewed and it was appropriate. Urine for UDS collected today 01/18/22 Prescription refill for Tramadol 50mg #30 w 2 refill, Flexeril 5mg #60 w 2 refill, Ibuprofen w 2 refill. I have spent 31 minutes on patient care today. Dr Puente was available by phone for the evaluation of this patient. The time was used to review the medical records including relevant urine studies and Prescription history (MAPs), review of the available imaging, evaluation and examination of the patient, coordination of care with the medical staff and if applicable referring physicians, as well as creation of the medical record PQRS Narrative: Smoking Status Never smoker Narcotic Agreement Date Signed 04/22/21 Hx Alcohol Use (MH) No: OCCASIONAL. Home Medications: Ambulatory Orders Zolpidem Tartrate 10 mg PO HS PRN 02/12/14 Aspirin EC [Ecotrin Low Dose] 81 mg PO DAILY #30 tablet. 02/14/14 Ascorbic Acid [Vitamin C] 1,000 mg PO DAILY 07/23/19 Famotidine [Pepcid] 20 mg PO DAILY 08/20/19 Diltiazem HCl [Cardizem CD] 120 mg PO DAILY 04/15/20 Lidocaine 5% Patch [Lidoderm 5% Patch] 1 patch TOPICAL DAILY PRN 30 Days #30 patch 09/30/21 Cyclobenzaprine [Flexeril] 5 mg PO BID PRN 30 Days #60 tab 01/18/22 Ibuprofen [Motrin] 800 mg PO Q12H PRN 30 Days #60 tab 01/18/22 traMADol HCl [Ultram] 50 tab PO Q24HR PRN 30 Days #30 tab 01/18/22 Controlled Substance Measures - Controlled Substance Measures Is patient prescribed a controlled substance at discharge?: Yes When asked, does pt state using other controlled substances?: Yes If prescribed controlled substance>3 days was MAPS reviewed?: Yes If Rx opioid, was Start Talking consent form obtained?: Yes If opioid is for acute pain is fill amount 7 days or less?: Yes Was information provided regarding opioid addiction?: Yes
[2022-01-18 08:48] VITALS: BP 125/86; PULSE 91; RESP 18; TEMP 98.4
== END ==
LOC: PNWHC3 07:56
PROVIDERS: ATTEND Specialist
DX: M47.22 Other spondylosis with radiculopathy, cervical region (principal); M50.10 Cervical disc disorder with radiculopathy, unspecified cervical region; G89.29 Other chronic pain; Z79.891 Long term (current) use of opiate analgesic; Z88.5 Allergy status to narcotic agent
CPT/HCPCS: 80307; 99212; G0482

== ENCOUNTER → 2022-01-29 | Day surgery (SDC) | payer BC ==
[2022-01-28 09:50] VITALS: BMI 21.7
[~2022-01-29] MED LIST changes: +IV FLUID CONTINUATION 1,000 ML IV ONE; +LIDOCAINE 1% (10MG/ML) FOR IV START INTRADERMA PRN; +MIDAZOLAM 2 MG/2 ML VIAL ONE; +ROPIVACAINE 5MG/ML 20ML VIAL ONE; +fentaNYL (PF) 50 MCG/ML 2 ML AMP ONE; +methylPREDNISolone ACETATE 40 MG/ML 1 ML VIAL ONE
[2022-01-29 09:07] VITALS: RESP 16; TEMP 97.5
--- NOTE | 2022-01-29 09:50 | P.PCN ---
Date of Procedure: 01/29/22 Procedure(s) Performed: PREOPERATIVE DIAGNOSIS: Cervical spondylosis with Facet Arthropathy without myelopathy. POSTOPERATIVE DIAGNOSIS: Cervical spondylosis with Facet Arthropathy without myelopathy. PROCEDURES: Radiofrequency thermocoagulation, Right C4, C5, C6 medial branch with Fluroscopy [place](fluoroscopy was available in Radiology department ) (to denervate the facet joint at Right C4- 5 , C5- 6 ) ANESTHESIA: Monitored anesthesia care as per anesthesia department . EBL: Minimal PROCEDURE INDICATION: The patient with neck pain secondary to cervical arthropathy who had more than 50% relief of her pain with previous diagnostic cervical medial branch block. PROCEDURE DESCRIPTION / TECHNIQUE: The patient was seen and identified in the preoperative area. Risks, benefits, complications, and alternatives were discussed with the patient, the patient agreed to proceed with the procedure and signed the consent. IV was started. Vital signs remained stable throughout the procedure. Patient was taken to the OR and time out was completed. The patient was placed in the Lateral position on the procedure table ( right side up ). The cervical area was prepped and draped in the usual sterile fashion. Critical pause was taken. Vital signs were closely monitored during the procedure. Conscious sedation was used during the procedure to decrease patients anxiety. Using cross-table lateral fluoroscopy, the centroid of the trapezoid of Right C4, C5, and C6 were identified, marked, and localized with 1% lidocaine. Subsequently, a 20 [id number] radiofrequency cannula with a 10-mm active tip was advanced guided by fluoroscopy to the centroid of the trapezoid of Right C4, C5, and C6 . Needle tip position was confirmed at the centroid of the trapezoids of Right C4, C5, and C6 with anteroposterior fluoroscopy. Each site then underwent sensory testing at 50 Hz and 0 to 1 volt and motor testing at 2 Hz and 0 to 3 volt with local stimulation, but no radicular symptoms down the arm. Thereafter each sites underwent radiofrequency thermocoagulation at 80 degrees celsius for 90 seconds after injecting 0.5 ml of PF Ropivacaine 0.5 %. After thermocoagulation, 1 ml of the block solution containing Depo-Medrol 40 mg and 5 mL of preservative-free normal saline was injected at the Right C4, C5, and C6 levels after negative aspiration of CSF and blood and with no paresthesias. Cannulas were retracted while injecting lidocaine 1% until the needle is out. Skin was cleansed and bandages were applied. COMPLICATIONS: No acute complications. DISPOSITION / PLANS: The patient was placed in a supine position and transferred to the recovery area in a stable condition for observation and was discharged from the recovery room after meeting discharge criteria. Home discharge instructions given to the patient by the staff. The patient was reexamined prior to discharge. The patient will schedule a follow up in the clinic in 2-4 weeks.
[2022-01-29 10:20] VITALS: BP 133/75; PULSE 74
--- NOTE | 2022-01-29 10:20 | FL ---
Fluoroscopy History: RADIO FREQ CERVICAL 32 SEC FLUORO
== END ==
LOC: ORPAIN 08:57
PROVIDERS: ATTEND Specialist
DX: M47.812 Spondylosis without myelopathy or radiculopathy, cervical region (principal); K21.9 Gastro-esophageal reflux disease without esophagitis; Z88.5 Allergy status to narcotic agent; Z79.899 Other long term (current) drug therapy; Z79.82 Long term (current) use of aspirin
CPT/HCPCS: 64633; 64634; J2250; J1030; J3010; J2795

== ENCOUNTER → 2022-05-31 | Outpatient (CLI) | payer BC ==
[2022-05-31 08:55] VITALS: BP 131/84; PULSE 95; RESP 18; TEMP 98.5
--- NOTE | 2022-05-31 14:51 | P.PAINPG ---
PQRS Measure Charge Sheet Comment: A 51 yr old female with a history of severe and chronic neck pain secondary to cervical degenerative disc diseases and spondylosis with facet arthropathy without myelopathy presents today for medication refills. Pain level is currently at 3 /10 in intensity, constant, localized on R cervical spine, dull in character w shooting towards RUE. Pain is provoked as high as 7/10 by overhead reaching, hyperextension or lifting. Pain is alleviated with PT x 14 wks in 2019, home exercise regimen, massage therapy q3wks x 2 yrs, heat, ice, medications, topicals, patches, laying supine, repositioning and rest. Procedures underwent R Cervical RFA (January 2022) Patient is currently on Tramadol, Ibuprofen, Flexeril Patient denies any side effects of the medication(s), denies excessive drowsiness or sleepiness, denies suicidal ideation and reports that the current pain medication is helping to control the pain and improve activities of daily living. Patient denies any motor or sensory deficits. Patient denies any fever or night sweats, denies any change in the bowel movements or urination. Physical Examination: -Constitutional: Cooperative. Not in acute distress . - Neurologic: Cranial nerve II to XII intact. No focal neurological deficits. - Psychatric: Alert & oriented x 3. Matching mood & appropriate affect. Judgment and insight intact. - Musculoskeletal: Cervical spine: Muscle bulk/ tone/ strength in the bilateral upper extremities normal Vertebral body tenderness to palpation over C3 Spurling test positive Distraction test positive Facet loading test positive Thoracic spine Muscle bulk / tone/ strength in the bilateral paraspinal muscles normal Vertebral body tender to palpation over Facet loading test positive Lumbar spine: Motor bulk/ tone/ strength lower extremities , thigh and legs : 5/5 Deep tendon reflexes : Normal Knee Jerk. Normal Ankle Jerk . Vertebral body tenderness to palpation over Lumbar Facet Loading Test positive Straight Leg Raise: positive at 30 degrees right side/ left side Gaenslen's Test positive Sacral spine : Severe tenderness over the Sacroiliac joint: right side / left side Range of motion: Flexion of the lumbar spine <60 degrees Range of motion: Extension of the lumbar spine <20 degrees Gaenslen's Test positive Bebeto's Test positive Farhan test: positive right side / left side Thigh Thrust Test Sacral Thrust Test Assessment and plan: Chronic neck pain secondary to cervical degenerative disc disease, spondylosis with facet arthropathy without myelopathy Recommended that pt follow up w her neurologist re: migraine MCMILLAN as she appeared to be negative for signs of occipital neuralgia or cervicogenic MCMILLAN. Chronic and current use of high-risk medication (Opioids). The patient was counseled about risk of opioid use, psychological risk associated with opioids and was orally counseled to not overuse , divert or sell medications. Pt is to store medication in a safe location. The patient is counseled against driving while using narcotic medications and also not to use alcohol or any illicit recreational drugs. Patient verbalized understanding that the lack of compliance will result in failure to renew narcotic prescription(s) as well as possible discharge from the clinic Diagnoses, prognosis and treatment options including but not limited to physical therapy, surgical interventions, interventional therapies and medication management including narcotics and adjuvant medication were discussed. All patient questions answered MAPS reviewed and it was appropriate. UDS from 03/31/22 reviewed and consistent Prescription refill for Tramadol 50mg #30, Ibuprofen 800mg #60 w 2 RF I have spent less than 30 minutes on patient care today. Dr Puente was available by phone for the evaluation of this patient. The time was used to review the medical records including relevant urine studies and Prescription history (MAPs), review of the available imaging, evaluation and examination of the patient, coordination of care with the medical staff and if applicable referring physicians, as well as creation of the medical record PQRS Narrative: Smoking Status Never smoker Narcotic Agreement Date Signed 03/31/22 Hx Alcohol Use (MH) No: OCCASIONAL. Home Medications: Ambulatory Orders Zolpidem Tartrate 10 mg PO HS PRN 02/12/14 Aspirin EC [Ecotrin Low Dose] 81 mg PO DAILY #30 tablet. 02/14/14 Ascorbic Acid [Vitamin C] 1,000 mg PO DAILY 07/23/19 Famotidine [Pepcid] 20 mg PO DAILY 08/20/19 dilTIAZem HCL [Cardizem CD] 120 mg PO DAILY 04/15/20 Lidocaine 5% Patch [Lidoderm 5% Patch] 1 patch TOPICAL DAILY PRN 30 Days #30 patch 09/30/21 Cyclobenzaprine [Flexeril] 5 mg PO BID PRN 30 Days #60 tab 01/18/22 Ibuprofen [Motrin] 800 mg PO Q12H PRN 30 Days #60 tab 05/31/22 traMADol HCl [Ultram] 50 tab PO Q24HR PRN 30 Days #30 tab 05/31/22 Controlled Substance Measures - Controlled Substance Measures Is patient prescribed a controlled substance at discharge?: Yes When asked, does pt state using other controlled substances?: Yes If prescribed controlled substance>3 days was MAPS reviewed?: Yes If Rx opioid, was Start Talking consent form obtained?: Yes Was information provided regarding opioid addiction?: Yes
== END ==
LOC: PNWHC3 08:24
PROVIDERS: ATTEND Specialist
DX: M47.812 Spondylosis without myelopathy or radiculopathy, cervical region (principal); M50.30 Other cervical disc degeneration, unspecified cervical region; G89.29 Other chronic pain; Z79.891 Long term (current) use of opiate analgesic; Z88.5 Allergy status to narcotic agent
CPT/HCPCS: 99211

== ENCOUNTER → 2022-08-25 | Outpatient (CLI) | payer BC ==
[2022-08-25 09:18] VITALS: BP 127/84; PULSE 74; RESP 18; TEMP 98.4
--- NOTE | 2022-08-25 15:04 | P.PAINPG ---
PQRS Measure Charge Sheet Comment: A 52 yr old female with a history of severe and chronic neck & mid back pain x 6 yrs secondary to cervical and thoracic DDD and spondylosis with facet arthropathy without myelopathy presents today for medication refills. Pain level is provoked at 5 /10 in intensity, constant, localized in the lumbar spine, dull/ achy/ burning in character w shooting towards the RUE. Pain is provoked by stretching or RUE use. Pain is alleviated with PT x 3 mo in 2019, massages as needed, chiropractic treatments semi monthly, heat, ice, medications, topicals, RUE craddling, repositioning and rest. Patient is currently on ramadol, Ibuprofen, Flexeril Patient denies any side effects of the medication(s), denies excessive drowsiness or sleepiness, denies suicidal ideation and reports that the current pain medication is helping to control the pain and improve activities of daily living. Patient denies any motor or sensory deficits. Patient denies any fever or night sweats, denies any change in the bowel movements or urination. Physical Examination: -Constitutional: Cooperative. Not in acute distress . - Neurologic: Cranial nerve II to XII intact. No focal neurological deficits. - Psychatric: Alert & oriented x 3. Matching mood & appropriate affect. Judgment and insight intact. - Musculoskeletal: Cervical spine: Muscle bulk/ tone/ strength in the bilateral upper extremities normal Vertebral body tenderness to palpation over R C4, C5, C6, C7 Spurling test positive Distraction test positive Facet loading test positive Thoracic spine Muscle bulk / tone/ strength in the bilateral paraspinal muscles normal Vertebral body tender to palpation over Facet loading test positive Lumbar spine: Motor bulk/ tone/ strength lower extremities , thigh and legs : 5/5 Deep tendon reflexes : Normal Knee Jerk. Normal Ankle Jerk . Vertebral body tenderness to palpation over Lumbar Facet Loading Test positive Straight Leg Raise: positive at 30 degrees right side/ left side Gaenslen's Test positive Sacral spine : Severe tenderness over the Sacroiliac joint: right side / left side Range of motion: Flexion of the lumbar spine <60 degrees Range of motion: Extension of the lumbar spine <20 degrees Gaenslen's Test positive Farhan test: positive right side / left side Thigh Thrust Test Sacral Thrust Test Assessment and plan: Chronic neck & mid back pain secondary to cervical & thoracic DDD, spondylosis with facet arthropathy without myelopathy Chronic and current use of high-risk medication (Opioids). The patient was counseled about risk of opioid use, psychological risk associated with opioids and was orally counseled to not overuse , divert or sell medications. Pt is to store medication in a safe location. The patient is counseled against driving while using narcotic medications and also not to use alcohol or any illicit recreational drugs. Patient verbalized understanding that the lack of compliance will result in failure to renew narcotic prescription(s) as well as possible discharge from the clinic Diagnoses, prognosis and treatment options including but not limited to physical therapy, surgical interventions, interventional therapies and medication management including narcotics and adjuvant medication were discussed. All patient questions answered MAPS reviewed and it was appropriate. UDS from 03/31/22 reviewed and consistent Prescription refill for Tramadol, Ibuprofen, Flexeril w 2 RF I have spent less than 30 minutes on patient care today. Dr Puente was available by phone for the evaluation of this patient. The time was used to review the medical records including relevant urine studies and Prescription history (MAPs), review of the available imaging, evaluation and examination of the patient, coordination of care with the medical staff and if applicable referring physicians, as well as creation of the medical record - Pain Location Right Neck Non-Pharmacological Interventions: Chiropractic Treatment, Heat, Ice, Massage, Position/Reposition Pharmacological Interventions: PRN Medication, Topical Medication PQRS Narrative: Smoking Status Never smoker Narcotic Agreement Date Signed 03/31/22 Hx Alcohol Use (MH) No: OCCASIONAL. Home Medications: Ambulatory Orders Zolpidem Tartrate 10 mg PO HS PRN 02/12/14 Aspirin EC [Ecotrin Low Dose] 81 mg PO DAILY #30 tablet. 02/14/14 Ascorbic Acid [Vitamin C] 1,000 mg PO DAILY 07/23/19 Famotidine [Pepcid] 20 mg PO DAILY 08/20/19 dilTIAZem HCL [Cardizem CD] 120 mg PO DAILY 04/15/20 Lidocaine 5% Patch [Lidoderm 5% Patch] 1 patch TOPICAL DAILY PRN 30 Days #30 patch 09/30/21 Cyclobenzaprine [Flexeril] 5 mg PO BID PRN 30 Days #60 tab 08/25/22 Ibuprofen [Motrin] 800 mg PO Q12H PRN 30 Days #60 tab 08/25/22 traMADol HCl [Ultram] 50 tab PO Q24HR PRN 30 Days #30 tab 08/25/22 Controlled Substance Measures - Controlled Substance Measures Is patient prescribed a controlled substance at discharge?: Yes When asked, does pt state using other controlled substances?: No If prescribed controlled substance>3 days was MAPS reviewed?: Yes If Rx opioid, was Start Talking consent form obtained?: Yes Was information provided regarding opioid addiction?: Yes
== END ==
LOC: PNWHC3 08:04
PROVIDERS: ATTEND Specialist
DX: M47.812 Spondylosis without myelopathy or radiculopathy, cervical region (principal); M47.814 Spondylosis without myelopathy or radiculopathy, thoracic region; Z79.891 Long term (current) use of opiate analgesic; M51.34 Other intervertebral disc degeneration, thoracic region; M50.30 Other cervical disc degeneration, unspecified cervical region; Z88.5 Allergy status to narcotic agent
CPT/HCPCS: 99211

== ENCOUNTER → 2022-11-17 | Outpatient (CLI) | payer BC ==
[2022-11-17 08:50] VITALS: BP 121/79; PULSE 109; RESP 18; TEMP 98.7
--- NOTE | 2022-11-17 14:42 | P.PAINPG ---
Objective - Vital Signs Vital signs: Intake & Output 11/16/22 11/17/22 11/17/22 18:59 06:59 18:59 Weight 64.41 kg PQRS Measure Charge Sheet Comment: A 52 yr old female with a history of severe and chronic neck pain secondary to cervical DDD and spondylosis with facet arthropathy without myelopathy presents today for medication refills. Pain level is provoked at 7 /10 in intensity, constant, localized in the L cervical spine, achy in character w shooting towa rds the R shoulder. Pain is provoked by sitting upright for periods of 20 min or more. Pain is alleviated with medications, topicals, injections, PT in 2019, chiropractic treatments, monthly 5 years which she is currently in, massage therapy twice annually, repositioning and rest. Interventional pain procedures completed include R RFA C4-C6 Patient is currently on Tramadol, Flex, Ibu Patient denies any side effects of the medication(s), denies excessive drowsiness or sleepiness, denies suicidal ideation and reports that the current pain medication is helping to control the pain and improve activities of daily living. Patient denies any motor or sensory deficits. Patient denies any fever or night sweats, denies any change in the bowel movements or urination. Physical Examination: -Constitutional: Cooperative. Not in acute distress . - Neurologic: Cranial nerve II to XII intact. No focal neurological deficits. - Psychatric: Alert & oriented x 3. Matching mood & appropriate affect. Clontarf gment and insight intact. - Musculoskeletal: Cervical spine: Muscle bulk/ tone/ strength in the bilateral upper extremities normal Vertebral body tenderness to palpation over Spurling test positive Distraction test positive Facet loading test positive TTP Thoracic spine Muscle bulk / tone/ strength in the bilateral paraspinal muscles normal Vertebral body tender to palpation over Facet loading test positive TTP Lumbar spine: Motor bulk/ tone/ strength lower extremities , thigh and legs : 5/5 Deep tendon reflexes : Normal Knee Jerk. Normal Ankle Jerk . Vertebral body tenderness to palpation over Lumbar Facet Loading Test positive Straight Leg Raise: positive at 30 degrees right side/ left side Gaenslen's Test positive Sacral spine : Severe tenderness over the Sacroiliac joint: right side / left side Range of motion: Flexion of the lumbar spine <60 degrees Range of motion: Extension of the lumbar spine <20 degrees Gaenslen's Test positive R / L Farhan test: positive right side / left side Thigh Thrust Test positive R / L Sacral Thrust Test positive R/ L Assessment and plan: Chronic neck pain secondary to cervical DDD, spondylosis with facet arthropathy without myelopathy Chronic and current use of high-risk medication (Opioids). The patient was counseled about risk of opioid use, psychological risk associated with opioids and was orally counseled to not overuse , divert or sell medications. Pt is to store medication in a safe location. The patient is counseled against driving while using narcotic medications and also not to use alcohol or any illicit recreational drugs. Patient verbalized understanding that the lack of compliance will result in failure to renew narcotic prescription(s) as well as possible discharge from the clinic Diagnoses, prognosis and treatment options including but not limited to physical therapy, surgical interventions, interventional therapies and medication management including narcotics and adjuvant medication were discussed. All patient questions answered MAPS reviewed and it was appropriate. UDS to be checked at next visit. Prescription refill for Tramadol #60, Ibu, Flexeril w 1 RF. I have spent less than 30 minutes on patient care today. Dr Puente was available by phone for the evaluation of this patient. The time was used to review the medical records including relevant urine studies and Prescription history (MAPs), review of the available imaging, evaluation and examination of the patient, coordination of care with the medical staff and if applicable referring physicians, as well as creation of the medical record PQRS Narrative: Smoking Status Never smoker Narcotic Agreement Date Signed 03/31/22 Hx Alcohol Use (MH) No: OCCASIONAL. Home Medications: Ambulatory Orders Zolpidem Tartrate 10 mg PO HS PRN 02/12/14 Aspirin EC [Ecotrin Low Dose] 81 mg PO DAILY #30 tablet. 02/14/14 Ascorbic Acid [Vitamin C] 1,000 mg PO DAILY 07/23/19 Famotidine [Pepcid] 20 mg PO DAILY 08/20/19 dilTIAZem HCL [Cardizem CD] 120 mg PO DAILY 04/15/20 Lidocaine 5% Patch [Lidoderm 5% Patch] 1 patch TOPICAL DAILY PRN 30 Days #30 patch 09/30/21 Cyclobenzaprine [Flexeril] 5 mg PO BID PRN 30 Days #60 tab 08/25/22 Ibuprofen [Motrin] 800 mg PO Q12H PRN 30 Days #60 tab 08/25/22 traMADol HCl [Ultram] 50 tab PO Q24HR PRN 30 Days #30 tab 08/25/22 Controlled Substance Measures - Controlled Substance Measures Is patient prescribed a controlled substance at discharge?: Yes
== END ==
LOC: PNWHC3 08:22
PROVIDERS: ATTEND Specialist
DX: M50.30 Other cervical disc degeneration, unspecified cervical region (principal); M47.812 Spondylosis without myelopathy or radiculopathy, cervical region; G89.29 Other chronic pain; Z79.891 Long term (current) use of opiate analgesic; Z79.82 Long term (current) use of aspirin; Z88.5 Allergy status to narcotic agent
CPT/HCPCS: 99211

== ENCOUNTER → 2023-02-09 | Outpatient (CLI) | payer BC ==
[2023-02-09 08:48] VITALS: BP 134/85; PULSE 99; RESP 16; TEMP 98.2
--- NOTE | 2023-02-09 14:30 | P.PAINPG ---
PQRS Measure Charge Sheet Comment: A 52 yr old female with a history of severe and chronic neck pain secondary to cervical DDD and spondylosis with facet arthropathy without myelopathy presents today for medication refills. Pt states she experirenced 75% pain relief x 7 mo since her last procedure, the R RFA C4-C5, C5-C6 in Jan 2022. Pain level is provoked at 7 /10 in intensity, constant, localized in the R cervical spine, achy in character w shooting towards the R shoulder. Pain is provoked by sitting upright for periods of 20 min or more. Pain is alleviated with medications, topicals, injections, PT in 2019, chiropractic treatments, monthly 5 years which she is currently in, massage therapy twice annually, repositioning and rest. Oswestry pain score of axial pain of 21. Interventional pain procedures completed include R RFA C4-C6 (Jan 2022) Patient is currently on Tramadol, Flex, Ibu Patient denies any side effects of the medication(s), denies excessive drowsiness or sleepiness, denies suicidal ideation and reports that the current pain medication is helping to control the pain and improve activities of daily living. Patient denies any motor or sensory deficits. Patient denies any fever or night sweats, denies any change in the bowel movements or urination. Physical Examination: -Constitutional: Cooperative. Not in acute distress . - Neurologic: Cranial nerve II to XII intact. No focal neurological deficits. - Psychatric: Alert & oriented x 3. Matching mood & appropriate affect. Judgment and insight intact. - Musculoskeletal: Cervical spine: Muscle bulk/ tone/ strength in the bilateral upper extremities normal Vertebral body tenderness to palpation over Spurling test positive Distraction test positive Facet loading test positive TTP over R C4-C5, C5-C6 Thoracic spine Muscle bulk / tone/ strength in the bilateral paraspinal muscles normal Vertebral body tender to palpation over Facet loading test positive TTP Lumbar spine: Motor bulk/ tone/ strength lower extremities , thigh and legs : 5/5 Deep tendon reflexes : Normal Knee Jerk. Normal Ankle Jerk . Vertebral body tenderness to palpation over Lumbar Facet Loading Test positive Straight Leg Raise: positive at 30 degrees right side/ left side Gaenslen's Test positive Sacral spine : Severe tenderness over the Sacroiliac joint: right side / left side Range of motion: Flexion of the lumbar spine <60 degrees Range of motion: Extension of the lumbar spine <20 degrees Gaenslen's Test positive R / L Farhan test: positive right side / left side Thigh Thrust Test positive R / L Sacral Thrust Test positive R/ L Assessment and plan: Chronic neck pain secondary to cervical DDD, spondylosis with facet arthropathy without myelopathy Recommendation of R RFA C4-C5, C5-C6. Pt exhibited sufficient and substantial pain relief w prior RFA procedure. Risks, benefits of procedure discussed and patient verbalized understanding. Protocol for discontinuation/continuation of medications surrounding procedure discussed. Chronic and current use of high-risk medication (Opioids). The patient was counseled about risk of opioid use, psychological risk associated with opioids and was orally counseled to not overuse , divert or sell medications. Pt is to store medication in a safe location. The patient is counseled against driving while using narcotic medications and also not to use alcohol or any illicit recreational drugs. Patient verbalized understanding that the lack of compliance will result in failure to renew narcotic prescription(s) as well as possible discharge from the clinic Diagnoses, prognosis and treatment options including but not limited to physical therapy, surgical interventions, interventional therapies and medication management including narcotics and adjuvant medication were discussed. All patient questions answered MAPS reviewed and it was appropriate. UDS collected today 11/10/22. Prescription refill for Tramadol #60, Ibu, Flexeril w 1 RF. I have spent less than 30 minutes on patient care today. Dr Puente was available by phone for the evaluation of this patient. The time was used to review the medical records including relevant urine studies and Prescription history (MAPs), review of the available imaging, evaluation and examination of the patient, coordination of care with the medical staff and if applicable referring physicians, as well as creation of the medical record PQRS Narrative: Smoking Status Never smoker Narcotic Agreement Date Signed 03/31/22 Hx Alcohol Use (MH) No: OCCASIONAL. Home Medications: Ambulatory Orders Zolpidem Tartrate 10 mg PO HS PRN 02/12/14 Aspirin EC [Ecotrin Low Dose] 81 mg PO DAILY #30 tablet. 02/14/14 Ascorbic Acid [Vitamin C] 1,000 mg PO DAILY 07/23/19 Famotidine [Pepcid] 20 mg PO DAILY 08/20/19 dilTIAZem HCL [Cardizem CD] 120 mg PO DAILY 04/15/20 Lidocaine 5% Patch [Lidoderm 5% Patch] 1 patch TOPICAL DAILY PRN 30 Days #30 patch 09/30/21 Cyclobenzaprine [Flexeril] 5 mg PO BID PRN 30 Days #60 tab 11/17/22 Ibuprofen [Motrin] 800 mg PO Q12H PRN 30 Days #60 tab 11/17/22 traMADol HCl [Ultram] 50 tab PO BID 30 Days #60 tab 11/17/22 Controlled Substance Measures - Controlled Substance Measures Is patient prescribed a controlled substance at discharge?: Yes
== END ==
LOC: PNWHC3 08:04
PROVIDERS: ATTEND Specialist
DX: M50.322 Other cervical disc degeneration at C5-C6 level (principal); M47.812 Spondylosis without myelopathy or radiculopathy, cervical region; G89.29 Other chronic pain; Z79.891 Long term (current) use of opiate analgesic; Z79.82 Long term (current) use of aspirin; Z88.5 Allergy status to narcotic agent
CPT/HCPCS: 99212

== ENCOUNTER → 2023-08-10 | Outpatient (CLI) | payer BC ==
[2023-08-10 08:56] VITALS: BP 129/84; PULSE 104; RESP 16
--- NOTE | 2023-08-10 14:26 | P.PAINPG ---
PQRS Measure Charge Sheet Comment: A 52 yr old female with a history of severe and chronic neck pain secondary to cervical DDD and spondylosis with facet arthropathy without myelopathy presents today for medication refills. Pain level is provoked at 4 /10 in intensity, constant, localized in the R cervical spine, achy in character w shooting towards the R shoulder. Pain is provoked by sitting upright for periods of 20 min or more. Pain is alleviated with medications, topicals, injections, PT in 2019, chiropractic treatments monthly 5 years which she is currently in, massage therapy twice annually, repositioning and rest. Cervical disability score of 21. Interventional pain procedures completed include R RFA C4-C6 (Feb 2023) Patient is currently on Tramadol, Flex, Ibu Patient denies any side effects of the medication(s), denies excessive drowsiness or sleepiness, denies suicidal ideation and reports that the current pain medication is helping to control the pain and improve activities of daily living. Patient denies any motor or sensory deficits. Patient denies any fever or night sweats, denies any change in the bowel movements or urination. Physical Examination: -Constitutional: Cooperative. Not in acute distress . - Neurologic: Cranial nerve II to XII intact. No focal neurological deficits. - Psychatric: Alert & oriented x 3. Matching mood & appropriate affect. Judgment and insight intact. - Musculoskeletal: Cervical spine: Muscle bulk/ tone/ strength in the bilateral upper extremities normal Vertebral body tenderness to palpation over Spurling test positive Distraction test positive Facet loading test positive TTP over R C4-C5, C5-C6 Thoracic spine Muscle bulk / tone/ strength in the bilateral paraspinal muscles normal Vertebral body tender to palpation over Facet loading test positive TTP Lumbar spine: Motor bulk/ tone/ strength lower extremities , thigh and legs : 5/5 Deep tendon reflexes : Normal Knee Jerk. Normal Ankle Jerk . Vertebral body tenderness to palpation over Lumbar Facet Loading Test positive Straight Leg Raise: positive at 30 degrees right side/ left side Gaenslen's Test positive Sacral spine : Severe tenderness over the Sacroiliac joint: right side / left side Range of motion: Flexion of the lumbar spine <60 degrees Range of motion: Extension of the lumbar spine <20 degrees Gaenslen's Test positive R / L Farhan test: positive right side / left side Thigh Thrust Test positive R / L Sacral Thrust Test positive R/ L Assessment and plan: Chronic neck pain secondary to cervical DDD, spondylosis with facet arthropathy without myelopathy Chronic and current use of high-risk medication (Opioids). The patient was counseled about risk of opioid use, psychological risk associated with opioids and was orally counseled to not overuse , divert or sell medications. Pt is to store medication in a safe location. The patient is counseled against driving while using narcotic medications and also not to use alcohol or any illicit recreational drugs. Patient verbalized understanding that the lack of compliance will result in failure to renew narcotic prescription(s) as well as possible discharge from the clinic Diagnoses, prognosis and treatment options including but not limited to physical therapy, surgical interventions, interventional therapies and medication management including narcotics and adjuvant medication were discussed. All patient questions answered MAPS reviewed and it was appropriate. UDS collected 08/10/23. Narcotic agreement updated 08/10/23. Prescription refill for Tramadol #60, Ibu, Flexeril w 1 RF. I have spent less than 30 minutes on patient care today. Dr Puente was available by phone for the evaluation of this patient. The time was used to review the medical records including relevant urine studies and Prescription history (MAPs), review of the available imaging, evaluation and examination of the patient, coordination of care with the medical staff and if applicable referring physicians, as well as creation of the medical record PQRS Narrative: Smoking Status Never smoker Narcotic Agreement Date Signed 03/31/22 Hx Alcohol Use (MH) No: OCCASIONAL. Home Medications: Ambulatory Orders Zolpidem Tartrate 10 mg PO HS PRN 02/12/14 Famotidine [Pepcid] 20 mg PO DAILY PRN 08/20/19 dilTIAZem HCL [Cardizem CD] 120 mg PO QAM 04/15/20 Aspirin EC [Ecotrin Low Dose] 81 mg PO QAM 03/02/23 Cyclobenzaprine [Flexeril] 5 mg PO BID PRN 30 Days #60 tab 08/10/23 Ibuprofen [Motrin] 800 mg PO Q12H PRN 30 Days #60 tab 08/10/23 traMADol HCl [Ultram] 50 tab PO BID PRN 30 Days #60 tab 08/10/23 Controlled Substance Measures - Controlled Substance Measures Is patient prescribed a controlled substance at discharge?: Yes When asked, does pt state using other controlled substances?: Yes If prescribed controlled substance>3 days was MAPS reviewed?: Yes
== END ==
LOC: PNWHC3 08:14
PROVIDERS: ATTEND Specialist
DX: M47.812 Spondylosis without myelopathy or radiculopathy, cervical region (principal); M50.321 Other cervical disc degeneration at C4-C5 level; M50.322 Other cervical disc degeneration at C5-C6 level; G89.29 Other chronic pain; Z79.891 Long term (current) use of opiate analgesic; Z88.5 Allergy status to narcotic agent; Z79.82 Long term (current) use of aspirin; Z51.81 Encounter for therapeutic drug level monitoring
CPT/HCPCS: 80307; 99212

== ENCOUNTER → 2023-11-02 | Outpatient (CLI) | payer BC ==
[2023-11-02 10:57] VITALS: BP 131/83; PULSE 94; RESP 16; TEMP 98.8
--- NOTE | 2023-11-02 14:35 | P.PAINPG ---
PQRS Measure Charge Sheet Comment: A 53 yr old female with a history of severe and chronic neck pain secondary to cervical DDD and spondylosis with facet arthropathy without myelopathy presents today for medication refills. She has been taking the medication less frequently and integrating pain management w exercises & stretches. Pain level is provoked at 4 /10 in intensity, constant, localized in the R cervical spine, achy in character w shooting towards the R shoulder. Pain is provoked by sitting upright for periods of 20 min or more. Pain is alleviated with medications, topicals, injections, PT in 2019, chiropractic treatments monthly 5 years which she is currently in, massage therapy twice annually, repositioning and rest. Cervical disability score of 21. Interventional pain procedures completed include R RFA C4-C6 (Feb 2023) Patient is currently on Tramadol, Flex, Ibu Patient denies any side effects of the medication(s), denies excessive drowsiness or sleepiness, denies suicidal ideation and reports that the current pain medication is helping to control the pain and improve activities of daily living. Patient denies any motor or sensory deficits. Patient denies any fever or night sweats, denies any change in the bowel movements or urination. Physical Examination: -Constitutional: Cooperative. Not in acute distress . - Neurologic: Cranial nerve II to XII intact. No focal neurological deficits. - Psychatric: Alert & oriented x 3. Matching mood & appropriate affect. Judgment and insight intact. - Musculoskeletal: Cervical spine: Muscle bulk/ tone/ strength in the bilateral upper extremities normal Vertebral body tenderness to palpation over Spurling test positive Distraction test positive Facet loading test positive TTP over R C4-C5, C5-C6 Thoracic spine Muscle bulk / tone/ strength in the bilateral paraspinal muscles normal Vertebral body tender to palpation over Facet loading test positive TTP Lumbar spine: Motor bulk/ tone/ strength lower extremities , thigh and legs : 5/5 Deep tendon reflexes : Normal Knee Jerk. Normal Ankle Jerk . Vertebral body tenderness to palpation over Lumbar Facet Loading Test positive Straight Leg Raise: positive at 30 degrees right side/ left side Gaenslen's Test positive Sacral spine : Severe tenderness over the Sacroiliac joint: right side / left side Range of motion: Flexion of the lumbar spine <60 degrees Range of motion: Extension of the lumbar spine <20 degrees Gaenslen's Test positive R / L Farhan test: positive right side / left side Thigh Thrust Test positive R / L Sacral Thrust Test positive R/ L Assessment and plan: Chronic neck pain secondary to cervical DDD, spondylosis with facet arthropathy without myelopathy Chronic and current use of high-risk medication (Opioids). The patient was counseled about risk of opioid use, psychological risk associated with opioids and was orally counseled to not overuse , divert or sell medications. Pt is to store medication in a safe location. The patient is counseled against driving while using narcotic medications and also not to use alcohol or any illicit recreational drugs. Patient verbalized understanding that the lack of compliance will result in failure to renew narcotic prescription(s) as well as possible discharge from the clinic Diagnoses, prognosis and treatment options including but not limited to physical therapy, surgical interventions, interventional therapies and medication management including narcotics and adjuvant medication were discussed. All patient questions answered MAPS reviewed and it was appropriate. UDS fr 08/10/23 reviewed and consistent. Narcotic agreement updated 08/10/23. Prescription refill for Tramadol #60, Ibu, Flexeril w 1 RF. I have spent less than 30 minutes on patient care today. Dr Puente was available by phone for the evaluation of this patient. The time was used to review the medical records including relevant urine studies and Prescription history (MAPs), review of the available imaging, evaluation and examination of the patient, coordination of care with the medical staff and if applicable referring physicians, as well as creation of the medical record - Pain Location Right Neck Pharmacological Interventions: PRN Medication PQRS Narrative: Smoking Status Never smoker Narcotic Agreement Date Signed 08/10/23 Hx Alcohol Use (MH) No: OCCASIONAL. Home Medications: Ambulatory Orders Zolpidem Tartrate 10 mg PO HS PRN 02/12/14 Famotidine [Pepcid] 20 mg PO DAILY PRN 08/20/19 dilTIAZem HCL [Cardizem CD] 120 mg PO QAM 04/15/20 Aspirin EC [Ecotrin Low Dose] 81 mg PO QAM 03/02/23 Ibuprofen [Motrin] 800 mg PO Q12H PRN 30 Days #60 tab 11/02/23 methocarbamoL [Robaxin] 500 mg PO TID 30 Days #90 tab 11/02/23 traMADol HCl [Ultram] 50 tab PO BID PRN 30 Days #60 tab 11/02/23 Controlled Substance Measures - Controlled Substance Measures Is patient prescribed a controlled substance at discharge?: Yes When asked, does pt state using other controlled substances?: Yes If prescribed controlled substance>3 days was MAPS reviewed?: Yes
== END ==
LOC: PNWHC3 08:03
PROVIDERS: ATTEND Specialist
DX: M47.812 Spondylosis without myelopathy or radiculopathy, cervical region (principal); M50.30 Other cervical disc degeneration, unspecified cervical region; Z79.891 Long term (current) use of opiate analgesic; Z88.5 Allergy status to narcotic agent; Z79.82 Long term (current) use of aspirin
CPT/HCPCS: 99211

== ENCOUNTER → 2024-01-04 | Outpatient (CLI) | payer BC ==
[2024-01-04 09:51] VITALS: BP 122/70; PULSE 94; RESP 16; TEMP 97.7
--- NOTE | 2024-01-04 13:24 | P.PAINPG ---
PQRS Measure Charge Sheet Comment: A 53 yr old female with a history of severe and chronic neck pain secondary to cervical DDD and spondylosis with facet arthropathy without myelopathy presents today for medication refills. Pain level is provoked at 8 /10 in intensity, constant, localized in the R cervical spine, achy in character w shooting towards the R shoulder. Pain is provoked by sitting upright for periods of 20 min or more. Pain is alleviated with medications, topicals, injections, PT in 2019, chiropractic treatments monthly 5 years which she is currently in, massage therapy twice annually, alternating heat & ice, repositioning and rest. Cervical disability score of 21. Interventional pain procedures completed include R RFA C4-C6 (Feb 2023) Patient is currently on Tramadol, Flex, Ibu Patient denies any side effects of the medication(s), denies excessive drowsiness or sleepiness, denies suicidal ideation and reports that the current pain medication is helping to control the pain and improve activities of daily living. Patient denies any motor or sensory deficits. Patient denies any fever or night sweats, denies any change in the bowel movements or urination. Physical Examination: -Constitutional: Cooperative. Not in acute distress . - Neurologic: Cranial nerve II to XII intact. No focal neurological deficits. - Psychatric: Alert & oriented x 3. Matching mood & appropriate affect. Judgment and insight intact. - Musculoskeletal: Cervical spine: Muscle bulk/ tone/ strength in the bilateral upper extremities normal Vertebral body tenderness to palpation over Spurling test positive Distraction test positive Facet loading test positive TTP over R C4-C5, C5-C6 Thoracic spine Muscle bulk / tone/ strength in the bilateral paraspinal muscles normal Vertebral body tender to palpation over Facet loading test positive TTP Lumbar spine: Motor bulk/ tone/ strength lower extremities , thigh and legs : 5/5 Deep tendon reflexes : Normal Knee Jerk. Normal Ankle Jerk . Vertebral body tenderness to palpation over Lumbar Facet Loading Test positive Straight Leg Raise: positive at 30 degrees right side/ left side Gaenslen's Test positive Sacral spine : Severe tenderness over the Sacroiliac joint: right side / left side Range of motion: Flexion of the lumbar spine <60 degrees Range of motion: Extension of the lumbar spine <20 degrees Gaenslen's Test positive R / L Farhan test: positive right side / left side Thigh Thrust Test positive R / L Sacral Thrust Test positive R/ L Assessment and plan: Chronic neck pain secondary to cervical DDD, spondylosis with facet arthropathy without myelopathy Chronic and current use of high-risk medication (Opioids). The patient was counseled about risk of opioid use, psychological risk associated with opioids and was orally counseled to not overuse , divert or sell medications. Pt is to store medication in a safe location. The patient is counseled against driving while using narcotic medications and also not to use alcohol or any illicit recreational drugs. Patient verbalized understanding that the lack of compliance will result in failure to renew narcotic prescription(s) as well as possible discharge from the clinic Diagnoses, prognosis and treatment options including but not limited to physical therapy, surgical interventions, interventional therapies and medication management including narcotics and adjuvant medication were discussed. All patient questions answered MAPS reviewed and it was appropriate. UDS fr 08/10/23 reviewed and consistent. Narcotic agreement updated 08/10/23. Prescription refill for Tramadol #60, Ibu, Flexeril w 1 RF. I have spent less than 30 minutes on patient care today. Dr Puente was available by phone for the evaluation of this patient. The time was used to review the medical records including relevant urine studies and Prescription history (MAPs), review of the available imaging, evaluation and examination of the patient, coordination of care with the medical staff and if applicable referring physicians, as well as creation of the medical record - Pain Location Bilateral Lower Neck Non-Pharmacological Interventions: Heat, Ice, Inactivity, Physical Therapy, Position/Reposition Pharmacological Interventions: PRN Medication, Scheduled Medication, Topical Medication PQRS Narrative: Smoking Status Never smoker Narcotic Agreement Date Signed 08/10/23 Hx Alcohol Use (MH) No: OCCASIONAL. Home Medications: Ambulatory Orders Zolpidem Tartrate 10 mg PO HS PRN 02/12/14 Famotidine [Pepcid] 20 mg PO DAILY PRN 08/20/19 dilTIAZem HCL [Cardizem CD] 120 mg PO QAM 04/15/20 Aspirin EC [Ecotrin Low Dose] 81 mg PO QAM 03/02/23 Ibuprofen [Motrin] 800 mg PO Q12H PRN 30 Days #60 tab 11/02/23 methocarbamoL [Robaxin] 500 mg PO TID 30 Days #90 tab 11/02/23 traMADol HCl [Ultram] 50 tab PO BID PRN 30 Days #60 tab 11/02/23 Controlled Substance Measures - Controlled Substance Measures Is patient prescribed a controlled substance at discharge?: Yes When asked, does pt state using other controlled substances?: Yes If prescribed controlled substance>3 days was MAPS reviewed?: Yes
== END ==
LOC: PNWHC3 09:02
PROVIDERS: ATTEND Specialist
DX: M50.321 Other cervical disc degeneration at C4-C5 level (principal); M50.322 Other cervical disc degeneration at C5-C6 level; M47.812 Spondylosis without myelopathy or radiculopathy, cervical region; Z79.891 Long term (current) use of opiate analgesic; Z88.5 Allergy status to narcotic agent
CPT/HCPCS: 99211

== ENCOUNTER → 2024-01-31 | Outpatient (CLI) | payer BC ==
--- NOTE | 2024-02-01 12:03 | MM ---
Reason for Exam: Screening (asymptomatic). Last mammogram was performed 1 year(s) and 4 month(s) ago. Patient History: Menarche at age 12. First Full-Term at age 19. Hysterectomy at age 39. Hormonal Contraceptives for 6 years from age 20 until age 26. 04/28/2020, Benign Core Biopsy on the left side. Maternal grandmother had breast cancer, age 45. Maternal aunt had breast cancer, age 55. Risk Values: Domenica 5 year model risk: 0.9%. NCI Lifetime model risk: 7.3%. Prior Study Comparison: 04/28/2020 Left Diagnostic Mammogram, [facility]. 07/07/2021 Bilateral Diagnostic Mammogram, [facility]. 09/24/2022 Bilateral MG 3D screening mammo w/cad, [facility]. Tissue Density: The breasts are heterogeneously dense, which may obscure small masses. Findings: Analyzed By CAD. Left breast biopsy clip. Right breast: There is no suspicious group of microcalcifications or new suspicious mass. Left breast: There is no suspicious group of microcalcifications or new suspicious mass. Overall Assessment: Benign, BI-RAD 2 Management: Screening Mammogram of both breasts in [address] [facility] will attempt to contact patient to return for supplemental views and ultrasound if indicated. Patient should continue monthly self-breast exams. A clinical breast exam by your physician is recommended on an annual basis. This exam should not preclude additional follow-up of suspicious palpable abnormalities. Note on Domenica scores and lifetime risk: 1. A Domenica score greater than 3% is considered moderate risk. If this is the case, consider specialist referral to assess eligibility for a risk reducing agent. 2. If overall lifetime risk for the development of breast cancer is 20% or higher, the patient may qualify for future screening with alternating mammogram and breast MRI. Electronically signed and approved by: Jorgito Vázquez DO
== END | disposition home or self-care (01) ==
LOC: RADMAMWWP 15:10
PROVIDERS: ATTEND Family Medicine
DX: R92.333 Mammographic heterogeneous density, bilateral breasts (principal); Z80.3 Family history of malignant neoplasm of breast
CPT/HCPCS: 77063; 77067

== ENCOUNTER → 2024-03-14 | Outpatient (CLI) | payer BC | LOC: PNWHC3 08:00 | DX: M54.2 Cervicalgia (principal); G54.0 Brachial plexus disorders; Z88.5 Allergy status to narcotic agent | CPT/HCPCS: 99211 ==

== ENCOUNTER → 2024-05-09 | Outpatient (CLI) | payer BC ==
[2024-05-09 09:12] VITALS: BP 144/86; PULSE 99; RESP 16; TEMP 97.1
--- NOTE | 2024-05-09 14:30 | P.PAINPG ---
PQRS Measure Charge Sheet Comment: A 53 yr old female with a history of severe and chronic neck pain secondary to radiculopathy, spondylosis and facet arthropathy without myelopathy presents today for medication refills. Pain level is provoked at 5 /10 in intensity, constant, localized in the R cervical spine, achy in character w shooting to wards the R shoulder. Pain is provoked by sitting upright for periods of 20 min or more. Pain is alleviated with medications, topicals, injections, PT in 2019, chiropractic treatments monthly 5 years which she is currently in, massage therapy twice annually in 2023, alternating heat & ice, repositioning and rest. Pt prefers Flexeril over other muscle relaxers she has taken, and denies mood changes or drowsiness with medication regimen. Interventional pain procedures completed include R RFA C4-C6 (Feb 2023) Patient is currently on Tramadol, Flex, Ibu Patient denies any side effects of the medication(s), denies excessive drowsiness or sleepiness, denies suicidal ideation and reports that the current pain medication is helping to control the pain and improve activities of daily living. Patient denies any motor or sensory deficits. Patient denies any fever or night sweats, denies any change in the bowel movements or urination. Physical Examination: -Constitutional: Cooperative. Not in acute distress . - Neurologic: Cranial nerve II to XII intact. No focal neurological deficits. - Psychatric: Alert & oriented x 3. Matching mood & appropriate affect. Judgment and insight intact. - Musculoskeletal: Cervical spine: Muscle bulk/ tone/ strength in the bilateral upper extremities normal Vertebral body tenderness to palpation over Spurling test positive Distraction test positive Facet loading test positive TTP over R C4-C5, C5-C6 Thoracic spine Muscle bulk / tone/ strength in the bilateral paraspinal muscles normal Vertebral body tender to palpation over Facet loading test positive TTP Lumbar spine: Motor bulk/ tone/ strength lower extremities , thigh and legs : 5/5 Deep tendon reflexes : Normal Knee Jerk. Normal Ankle Jerk . Vertebral body tenderness to palpation over Lumbar Facet Loading Test positive Straight Leg Raise: positive at 30 degrees right side/ left side Gaenslen's Test positive Sacral spine : Severe tenderness over the Sacroiliac joint: right side / left side Range of motion: Flexion of the lumbar spine <60 degrees Range of motion: Extension of the lumbar spine <20 degrees Gaenslen's Test positive R / L Farhan test: positive right side / left side Thigh Thrust Test positive R / L Sacral Thrust Test positive R/ L Assessment and plan: Chronic neck pain secondary to radiculopathy, spondylosis with facet arthropathy without myelopathy Chronic and current use of high-risk medication (Opioids). The patient was counseled about risk of opioid use, psychological risk associated with opioids and was orally counseled to not overuse , divert or sell medications. Pt is to store medication in a safe location. The patient is counseled against driving while using narcotic medications and also not to use alcohol or any illicit recreational drugs. Patient verbalized understanding that the lack of compliance will result in failure to renew narcotic prescription(s) as well as possible discharge from the clinic Diagnoses, prognosis and treatment options including but not limited to physical therapy, surgical interventions, interventional therapies and medication management including narcotics and adjuvant medication were discussed. All patient questions answered MAPS reviewed and it was appropriate. UDS collected 05/09/24. Narcotic agreement updated 08/10/23. Prescription refill for Tramadol #60, Ibu, Flexeril w 2 RF. I have spent less than 30 minutes on patient care today. Dr Puente was available by phone for the evaluation of this patient. The time was used to review the medical records including relevant urine studies and Prescription history (MAPs), review of the available imaging, evaluation and examination of the patient, coordination of care with the medical staff and if applicable referring physicians, as well as creation of the medical record PQRS Narrative: Smoking Status Never smoker Narcotic Agreement Date Signed 08/10/23 Hx Alcohol Use (MH) No: OCCASIONAL. Home Medications: Ambulatory Orders Zolpidem Tartrate 10 mg PO HS PRN 02/12/14 Famotidine [Pepcid] 20 mg PO DAILY PRN 08/20/19 dilTIAZem HCL [Cardizem CD] 120 mg PO QAM 04/15/20 Aspirin EC [Ecotrin Low Dose] 81 mg PO QAM 03/02/23 Cyclobenzaprine [Flexeril] 5 mg PO TID PRN 30 Days #90 tablet 05/09/24 Ibuprofen [Motrin] 800 mg PO Q12H PRN 30 Days #60 tab 05/09/24 traMADol HCl [Ultram] 50 tab PO BID PRN 30 Days #60 tab 05/09/24 Controlled Substance Measures - Controlled Substance Measures Is patient prescribed a controlled substance at discharge?: Yes When asked, does pt state using other controlled substances?: Yes If prescribed controlled substance>3 days was MAPS reviewed?: Yes
== END ==
LOC: PNWHC3 08:16
PROVIDERS: ATTEND Specialist
DX: G54.0 Brachial plexus disorders
CPT/HCPCS: 80307; 99212

== ENCOUNTER → 2024-07-26 | Outpatient (CLI) | payer BC ==
[2024-07-26 08:34] VITALS: BP 140/88; PULSE 95; RESP 16; TEMP 97.1
--- NOTE | 2024-07-26 15:10 | P.PAINPG ---
Objective - Vital Signs Vital signs: Intake & Output 07/25/24 07/26/24 07/26/24 18:59 06:59 18:59 Weight 65.771 kg PQRS Measure Charge Sheet Comment: A 53 yr old female with a history of severe and chronic neck pain secondary to radiculopathy, spondylosis and facet arthropathy without myelopathy presents today for medication refills. Pain level is provoked at 4-6 /10 in intensity, constant, localized in the R cervical spine, achy in character w shooting towa rds the R shoulder. Pain is provoked by sitting upright for periods of 20 min or more. Pain is alleviated with medications, topicals, injections, PT in 2019, chiropractic treatments monthly 5 years which she is currently in, massage therapy twice annually in 2023, alternating heat & ice, repositioning and rest. Takes Ultram and Flexeril several hours apart and doesn't notice mood changes. Interventional pain procedures completed include R RFA C4-C6 (Feb 2023) Patient is currently on Tramadol, Flex, Ibu Patient denies any side effects of the medication(s), denies excessive drowsiness or sleepiness, denies suicidal ideation and reports that the current pain medication is helping to control the pain and improve activities of daily living. Patient denies any motor or sensory deficits. Patient denies any fever or night sweats, denies any change in the bowel movements or urination. Physical Examination: -Constitutional: Cooperative. Not in acute distress . - Neurologic: Cranial nerve II to XII intact. No focal neurological deficits. - Psychatric: Alert & oriented x 3. Matching mood & appropriate affect. Judgment and insight intact. - Musculoskeletal: Cervical spine: Muscle bulk/ tone/ strength in the bilateral upper extremities normal Vertebral body tenderness to palpation over Spurling test positive Distraction test positive Facet loading test positive TTP over R C4-C5, C5-C6 Thoracic spine Muscle bulk / tone/ strength in the bilateral paraspinal muscles normal Vertebral body tender to palpation over Facet loading test positive TTP Lumbar spine: Motor bulk/ tone/ strength lower extremities , thigh and legs : 5/5 Deep tendon reflexes : Normal Knee Jerk. Normal Ankle Jerk . Vertebral body tenderness to palpation over Lumbar Facet Loading Test positive Straight Leg Raise: positive at 30 degrees right side/ left side Gaenslen's Test positive Sacral spine : Severe tenderness over the Sacroiliac joint: right side / left side Range of motion: Flexion of the lumbar spine <60 degrees Range of motion: Extension of the lumbar spine <20 degrees Gaenslen's Test positive R / L Farhan test: positive right side / left side Thigh Thrust Test positive R / L Sacral Thrust Test positive R/ L Assessment and plan: Chronic neck pain secondary to radiculopathy, spondylosis with facet arthropathy without myelopathy Chronic and current use of high-risk medication (Opioids). The patient was counseled about risk of opioid use, psychological risk associated with opioids and was orally counseled to not overuse , divert or sell medications. Pt is to store medication in a safe location. The patient is counseled against driving while using narcotic medications and also not to use alcohol or any illicit recreational drugs. Patient verbalized understanding that the lack of compliance will result in failure to renew narcotic prescription(s) as well as possible discharge from the clinic Diagnoses, prognosis and treatment options including but not limited to physical therapy, surgical interventions, interventional therapies and medication management including narcotics and adjuvant medication were discussed. All patient questions answered MAPS reviewed and it was appropriate. UDS from 05/09/24 reviewed and consistent. Narcotic agreement updated 08/10/23. Prescription refill for Tramadol #60, Ibu, Flexeril w 2 RF. I have spent less than 30 minutes on patient care today. Dr Puente was available by phone for the evaluation of this patient. The time was used to review the medical records including relevant urine studies and Prescription history (MAPs), review of the available imaging, evaluation and examination of the patient, coordination of care with the medical staff and if applicable referring physicians, as well as creation of the medical record - Pain Location Right Upper Neck Non-Pharmacological Interventions: Heat, Ice, Inactivity, Physical Therapy, Position/Reposition, Relaxation Technique Pharmacological Interventions: PRN Medication, Scheduled Medication, Topical Medication PQRS Narrative: Smoking Status Never smoker Narcotic Agreement Date Signed 08/10/23 Hx Alcohol Use (MH) No: OCCASIONAL. Home Medications: Ambulatory Orders Zolpidem Tartrate 10 mg PO HS PRN 02/12/14 Famotidine [Pepcid] 20 mg PO DAILY PRN 08/20/19 dilTIAZem HCL [Cardizem CD] 120 mg PO QAM 04/15/20 Aspirin EC [Ecotrin Low Dose] 81 mg PO QAM 03/02/23 Cyclobenzaprine [Flexeril] 5 mg PO TID PRN 30 Days #90 tablet 07/26/24 Ibuprofen [Motrin] 800 mg PO Q12H PRN 30 Days #60 tab 07/26/24 traMADol HCl [Ultram] 50 tab PO BID PRN 30 Days #60 tab 07/26/24 Controlled Substance Measures - Controlled Substance Measures Is patient prescribed a controlled substance at discharge?: Yes When asked, does pt state using other controlled substances?: Yes If prescribed controlled substance>3 days was MAPS reviewed?: Yes
== END ==
LOC: PNWHC3 08:13
PROVIDERS: ATTEND Specialist
DX: M47.22 Other spondylosis with radiculopathy, cervical region (principal); Z79.891 Long term (current) use of opiate analgesic; Z88.5 Allergy status to narcotic agent
CPT/HCPCS: 99211

== ENCOUNTER → 2024-11-01 | Outpatient (CLI) | payer BC ==
[2024-11-01 10:42] VITALS: BP 134/87; PULSE 98; RESP 16
--- NOTE | 2024-11-01 14:21 | P.PAINPG ---
PQRS Measure Charge Sheet Comment: A 54 yr old female with a history of severe and chronic neck pain secondary to radiculopathy, spondylosis and facet arthropathy without myelopathy presents today for medication refills. Pain level is provoked at 4-6 /10 in intensity, constant, localized in the R cervical spine, achy in character w shooting towards the R shoulder. Pain is provoked by sitting upright for periods of 20 min or more. Pain is alleviated with medications, topicals, injections, PT in 2019, chiropractic treatments monthly 5 years which she is currently in, massage therapy twice annually in 2023, alternating heat & ice, repositioning and rest. Takes Ultram and Flexeril several hours apart and doesn't notice mood changes. Interventional pain procedures completed include R RFA C4-C6 (Feb 2023) Patient is currently on Tramadol, Flex, Ibu Patient denies any side effects of the medication(s), denies excessive drowsiness or sleepiness, denies suicidal ideation and reports that the current pain medication is helping to control the pain and improve activities of daily living. Patient denies any motor or sensory deficits. Patient denies any fever or night sweats, denies any change in the bowel movements or urination. Physical Examination: -Constitutional: Cooperative. Not in acute distress . - Neurologic: Cranial nerve II to XII intact. No focal neurological deficits. - Psychatric: Alert & oriented x 3. Matching mood & appropriate affect. Judgment and insight intact. - Musculoskeletal: Cervical spine: Muscle bulk/ tone/ strength in the bilateral upper extremities normal Vertebral body tenderness to palpation over Spurling test positive Distraction test positive Facet loading test positive TTP over R C4-C5, C5-C6 Thoracic spine Muscle bulk / tone/ strength in the bilateral paraspinal muscles normal Vertebral body tender to palpation over Facet loading test positive TTP Lumbar spine: Motor bulk/ tone/ strength lower extremities , thigh and legs : 5/5 Deep tendon reflexes : Normal Knee Jerk. Normal Ankle Jerk . Vertebral body tenderness to palpation over Lumbar Facet Loading Test positive Straight Leg Raise: positive at 30 degrees right side/ left side Gaenslen's Test positive Sacral spine : Severe tenderness over the Sacroiliac joint: right side / left side Range of motion: Flexion of the lumbar spine <60 degrees Range of motion: Extension of the lumbar spine <20 degrees Gaenslen's Test positive R / L Farhan test: positive right side / left side Thigh Thrust Test positive R / L Sacral Thrust Test positive R/ L Assessment and plan: Chronic neck pain secondary to radiculopathy, spondylosis with facet arthropathy without myelopathy Recommendation of BL RFA C4-C6. Risks, benefits of procedure discussed and patient verbalized understanding. Protocol for discontinuation/continuation of medication surrounding procedure discussed. Minimal anesthesia including fentanyl and Versed if clinically indicated. Patient acknowledged understanding. Chronic and current use of high-risk medication (Opioids). The patient was counseled about risk of opioid use, psychological risk associated with opioids and was orally counseled to not overuse , divert or sell medications. Pt is to store medication in a safe location. The patient is counseled against driving while using narcotic medications and also not to use alcohol or any illicit recreational drugs. Patient verbalized understanding that the lack of compliance will result in failure to renew narcotic prescription(s) as well as possible discharge from the clinic Diagnoses, prognosis and treatment options including but not limited to physical therapy, surgical interventions, interventional therapies and medication management including narcotics and adjuvant medication were discussed. All patient questions answered MAPS reviewed and it was appropriate. UDS from 05/09/24 reviewed and consistent. Narcotic agreement updated 11/01/24. Prescription refill for Tramadol #60, Ibu, Flexeril w 2 RF. I have spent less than 30 minutes on patient care today. Dr Puente was available by phone for the evaluation of this patient. The time was used to review the medical records including relevant urine studies and Prescription history (MAPs), review of the available imaging, evaluation and examination of the patient, coordination of care with the medical staff and if applicable referring physicians, as well as creation of the medical record PQRS Narrative: Smoking Status Never smoker Narcotic Agreement Date Signed 08/10/23 Hx Alcohol Use (MH) No: OCCASIONAL. Home Medications: Ambulatory Orders Zolpidem Tartrate 10 mg PO HS PRN 02/12/14 Famotidine [Pepcid] 20 mg PO DAILY PRN 08/20/19 dilTIAZem HCL [Cardizem CD] 120 mg PO QAM 04/15/20 Aspirin EC [Ecotrin Low Dose] 81 mg PO QAM 03/02/23 Cyclobenzaprine [Flexeril] 5 mg PO TID PRN 30 Days #90 tablet 11/01/24 Ibuprofen [Motrin] 800 mg PO Q12H PRN 30 Days #60 tab 11/01/24 traMADol HCl [Ultram] 50 tab PO BID PRN 30 Days #60 tab 11/01/24 Controlled Substance Measures - Controlled Substance Measures Is patient prescribed a controlled substance at discharge?: Yes When asked, does pt state using other controlled substances?: Yes If prescribed controlled substance>3 days was MAPS reviewed?: Yes
== END ==
LOC: PNWHC3 08:15
PROVIDERS: ATTEND Specialist
DX: M47.20 Other spondylosis with radiculopathy, site unspecified (principal); G89.29 Other chronic pain; Z88.5 Allergy status to narcotic agent
CPT/HCPCS: 80307; 99212

== ENCOUNTER 2024-11-22 09:22 | Day surgery (SDC) | payer BC ==
[2024-11-22 09:57] VITALS: TEMP 98.1
[2024-11-22] MEDS: IV FLUID CONTINUATION 1,000 ML IV ONE ×2 (10:04→10:57)
[2024-11-22] MEDS: LACTATED RINGERS 1,000 ML IV SCH (10:05)
[2024-11-22] MEDS ORDERED: ROPIVACAINE 5MG/ML 20ML VIAL ONE (11:07)
[2024-11-22] MEDS ORDERED: ONDANSETRON 4 MG/2 ML VIAL ONE (11:07)
[2024-11-22] MEDS ORDERED: fentaNYL (PF) 50 MCG/ML 2 ML AMP ONE (11:07)
[2024-11-22] MEDS ORDERED: MIDAZOLAM 2 MG/2 ML VIAL ONE (11:07)
--- NOTE | 2024-11-22 11:34 | P.PCN ---
Description of Procedure: Preprocedure diagnosis. Cervical spondylosis. Cervical facet joint arthropathy. Postprocedure diagnosis. As above. Procedure done. Right C4-5, C5-6 facet joint (C4.5,6 medial branch of dorsal ramus ) radiofrequency ablation under fluoroscopic guidance. Anesthesia. IV sedation with versed 2mg and fentanyl microgram. Continuous pulse ox, EKG, blood pressure and verbal communication was maintained with the patient in OR. Sedation time-start ,stop . Blood loss. None. Indication. Patient has got the diagnoses of cervical spondylolysis, facet joint arthropathy with neck pain. Diagnostic medial branch block relieved significant pain. Discussed with the patient procedure, alternatives, complications including infection, bleeding, nerve damage, paralysis all of which could be permanent. Patient understands and all questions are answered. Procedure note. After getting consent patient in OR in prone position. Back of the neck was prepped with chlorhexidine and draped in sterile fashion. After injecting 5 mL of plain 1% lidocaine subcutaneously, a 20-gauge RFA needle was introduced under tunnel vision of the fluoroscope AP view at the waist of the articular pillar (lateral mass) at C4 vertebral level. In the lateral view of the fluoroscope it was confirmed that the tip of the needle stayed within the dorsal half of the articular pillar (lateral mass). C4-5 facet joint was targeted by blocking C4 and C5 medial branch, C5-6 facet joint was targeted by blocking C5 and C6 medial branch . After subcutaneous injection of lidocaine, RFA needle were introduced under tunnel vision of the fluoroscope AP view at the waist of the articular pillars (lateral mass) at C5 vertebral level. In the lateral view of the fluoroscope it was confirmed that the tip of the needle stayed within the dorsal half of the articular pillar (lateral mass). After subcutaneous injection of lidocaine, RFA needle were introduced under tunnel vision of the fluoroscope AP view at the waist of the articular pillars (lateral mass) at C6 vertebral level. In the lateral view of the fluoroscope it was confirmed that the tip of the needle stayed within the dorsal half of the articular pillar (lateral mass). . After positive sensory and negative motor stimulation,injection of 1 ml of 0.5% Ropivacaine, radiofrequency ablation was done at 80 C's for 90 seconds. Second lesion was done at the same settings after rotating the needls 180 degrees. After the procedure needle was taken out and bandage was applied. Disposition. Patient tolerated the procedure well. No complication. Discharged home in stable condition.
[2024-11-22] MEDS: IV FLUID CONTINUATION 400 ML IV ONE (11:43)
[2024-11-22 11:47] VITALS: RESP 18
--- NOTE | 2024-11-22 11:53 | FL ---
EXAMINATION TYPE: FL guided pain mgmt statistic Intraoperative/procedural fluoroscopic services were provided. CLINICAL INDICATION:Female, 54 years old with history of RF CERVICAL; , [facility] FINDINGS: Fluoroscopic images for RF cervical. No radiographic evidence for complication. Total fluoroscopy time is 21.9 seconds. DAP: [id number] [id number] Please see the operative/procedural note for further details. [facility], , 11/22/2024 11:51 AM
[2024-11-22 12:08] VITALS: BP 143/85; PULSE 87
== END 2024-11-22 12:10 | disposition home or self-care (01) ==
LOC: ORPAIN 09:22
PROVIDERS: ATTEND Pain Medicine Interventional Pain Medicine
DX: M47.812 Spondylosis without myelopathy or radiculopathy, cervical region (principal)
CPT/HCPCS: 64633; 64634; 99152

== ENCOUNTER → 2025-01-23 | Outpatient (CLI) | payer BC ==
[2025-01-23 08:27] VITALS: BP 128/83; PULSE 99; RESP 16; TEMP 97.3
--- NOTE | 2025-01-23 15:37 | P.PAINPG ---
Objective - Vital Signs Vital signs: Intake & Output 01/22/25 01/23/25 01/23/25 18:59 06:59 18:59 Weight 65.771 kg PQRS Measure Charge Sheet Comment: A 54 yr old female with a history of severe and chronic neck pain secondary to radiculopathy, spondylosis and facet arthropathy without myelopathy presents today for medication refills and evaluation s/p R RFA C4-C6. Pt states she experienced 50 % pain relief s/p procedure. Pain level is provoked at 4-6 /10 in intensity, constant, localized in the R cervical spine, achy in character w shooting towards the R shoulder. Pain is provoked by sitting upright for periods of 20 min or more. Pain is alleviated with medications, topicals, injections, PT in 2019, chiropractic treatments monthly 5 years which she is currently in, massage therapy twice annually in 2023, alternating heat & ice, repositioning and rest. Takes Ultram and Flexeril several hours apart and doesn't notice mood changes. Interventional pain procedures completed include R RFA C4-C6 x2 (02/27, 11/30) Patient is currently on Tramadol, Flex, Ibu Patient denies any side effects of the medication(s), denies excessive drowsiness or sleepiness, denies suicidal ideation and reports that the current pain medication is helping to control the pain and improve activities of daily living. Patient denies any motor or sensory deficits. Patient denies any fever or night sweats, denies any change in the bowel movements or urination. Physical Examination: -Constitutional: Cooperative. Not in acute distress . - Neurologic: Cranial nerve II to XII intact. No focal neurological deficits. - Psychatric: Alert & oriented x 3. Matching mood & appropriate affect. Judgment and insight intact. - Musculoskeletal: Cervical spine: Muscle bulk/ tone/ strength in the bilateral upper extremities normal Vertebral body tenderness to palpation over Spurling test positive Distraction test positive Facet loading test positive TTP over R C4-C5, C5-C6 Thoracic spine Muscle bulk / tone/ strength in the bilateral paraspinal muscles normal Vertebral body tender to palpation over Facet loading test positive TTP Lumbar spine: Motor bulk/ tone/ strength lower extremities , thigh and legs : 5/5 Deep tendon reflexes : Normal Knee Jerk. Normal Ankle Jerk . Vertebral body tenderness to palpation over Lumbar Facet Loading Test positive Straight Leg Raise: positive at 30 degrees right side/ left side Gaenslen's Test positive Sacral spine : Severe tenderness over the Sacroiliac joint: right side / left side Range of motion: Flexion of the lumbar spine <60 degrees Range of motion: Extension of the lumbar spine <20 degrees Gaenslen's Test positive R / L Farhan test: positive right side / left side Thigh Thrust Test positive R / L Sacral Thrust Test positive R/ L Assessment and plan: Chronic neck pain secondary to radiculopathy, spondylosis with facet arthropathy without myelopathy Chronic and current use of high-risk medication (Opioids). The patient was counseled about risk of opioid use, psychological risk associated with opioids and was orally counseled to not overuse , divert or sell medications. Pt is to store medication in a safe location. The patient is counseled against driving while using narcotic medi cations and also not to use alcohol or any illicit recreational drugs. Patient verbalized understanding that the lack of compliance will result in failure to renew narcotic prescription(s) as well as possible discharge from the clinic Diagnoses, prognosis and treatment options including but not limited to physical therapy, surgical interventions, interventional therapies and medicat ion management including narcotics and adjuvant medication were discussed. All patient questions answered MAPS reviewed and it was appropriate. UDS from 05/09/24 reviewed and consistent. Narcotic agreement updated 11/01/24. Prescription refill for Tramadol #60, Ibu, Flexeril w 2 RF. I have spent less than 30 minutes on patient care today. Dr Puente was available by phone for the evaluation of this patient. The time was used to review the medical records including relevant urine studies and Prescription history (MAPs), review of the available imaging, evaluation and examination of the patient, coordination of care with the medical staff and if applicable referring physicians, as well as creation of the medical record - Pain Location Right Upper Neck Non-Pharmacological Interventions: Exercise, Heat, Home Exercise, Ice, Inactivity, Physical Therapy, Position/Reposition, Sitting, Stretching Pharmacological Interventions: Block, Epidural, PRN Medication, Scheduled Medication, Topical Medication PQRS Narrative: Smoking Status Never smoker Narcotic Agreement Date Signed 11/01/24 Hx Alcohol Use (MH) No: OCCASIONAL. Home Medications: Ambulatory Orders Zolpidem Tartrate 10 mg PO HS PRN 02/12/14 Famotidine [Pepcid] 20 mg PO DAILY PRN 08/20/19 dilTIAZem HCL [Cardizem CD] 120 mg PO QAM 04/15/20 Aspirin EC [Ecotrin Low Dose] 81 mg PO QAM 03/02/23 Vit C (Unk) 1 tab PO DAILY 11/21/24 Cyclobenzaprine [Flexeril] 10 mg PO DAILY PRN 90 Days #90 tab 01/23/25 Ibuprofen [Motrin] 800 mg PO Q12H PRN 90 Days #180 tab 01/23/25 traMADol HCl [Ultram] 50 tab PO BID PRN 90 Days #180 tab 01/23/25 Controlled Substance Measures - Controlled Substance Measures Is patient prescribed a controlled substance at discharge?: Yes When asked, does pt state using other controlled substances?: Yes If prescribed controlled substance>3 days was MAPS reviewed?: Yes
== END ==
LOC: PNWHC3 08:04
PROVIDERS: ATTEND Specialist
DX: M47.22 Other spondylosis with radiculopathy, cervical region (principal); Z88.5 Allergy status to narcotic agent; Z79.891 Long term (current) use of opiate analgesic
CPT/HCPCS: 99211

== ENCOUNTER → 2025-02-04 | Outpatient (CLI) | payer BC ==
--- NOTE | 2025-02-04 18:34 | MM ---
Reason for Exam: Screening (asymptomatic). Last screening mammogram was performed 12 month(s) ago. Patient History: Menarche at age 12. First Full-Term at age 19. Hysterectomy at age 39. Hormonal Contraceptives for 6 years from age 20 until age 26. 04/28/2020, Benign Core Biopsy on the left side. Maternal grandmother had breast cancer, age 45. Maternal aunt had breast cancer, age 55. Risk Values: Domenica 5 year model risk: 1.0%. NCI Lifetime model risk: 7.2%. Prior Study Comparison: 07/07/2021 Bilateral Diagnostic Mammogram, [facility]. 09/24/2022 Bilateral MG 3D screening mammo w/cad, [facility]. 01/31/2024 Bilateral MG 3D screening mammo w/cad, [facility]. Tissue Density: The breasts are heterogeneously dense, which may obscure small masses. Findings: Analyzed By CAD. Chronic nodularity in both sides. Punctate grouped calcifications middle depth left breast are unchanged. Microclip left breast from prior biopsy. There is a new area of 2.0 cm circumscribed isodense nodularity partially obscured by dense tissue ventral outer left breast. Further ultrasound evaluation recommended. Otherwise, no significant change. Overall Assessment: Incomplete: need additional imaging evaluation, BI-RAD 0 Management: Diagnostic Breast Ultrasound of the right breast. 9 - 10:00 position for suspected 2.0 cm cyst close to the nipple. [facility] will attempt to contact patient to return for ultrasound. [facility], , 02/04/2025 5:40 PM. Electronically signed and approved by: Yannick Kenney M.D. Radiologist
== END | disposition home or self-care (01) ==
LOC: RADMAMWWP 16:26
PROVIDERS: ATTEND Family Medicine
DX: Z12.31 Encounter for screening mammogram for malignant neoplasm of breast (principal); R92.333 Mammographic heterogeneous density, bilateral breasts; Z80.3 Family history of malignant neoplasm of breast; Z92.0 Personal history of contraception
CPT/HCPCS: 77063; 77067

== ENCOUNTER → 2025-02-11 | Outpatient (CLI) | payer BC ==
--- NOTE | 2025-02-12 06:42 | USB ---
Reason for Exam: Additional evaluation requested from abnormal screening. Patient History: Menarche at age 12. First Full-Term at age 19. Hysterectomy at age 39. Hormonal Contraceptives for 6 years from age 20 until age 26. 04/28/2020, Benign Core Biopsy on the left side. Maternal grandmother had breast cancer, age 45. Maternal aunt had breast cancer, age 55. Risk Values: Domenica 5 year model risk: 1.0%. NCI Lifetime model risk: 7.2%. Technique: Method: Targeted. Prior Study Comparison: 09/24/2022 Bilateral MG 3D screening mammo w/cad, [facility]. 01/31/2024 Bilateral MG 3D screening mammo w/cad, [facility]. 02/04/2025 Bilateral MG 3D screening mammo w/cad, [facility]. Findings: The lateral section of the breast of the right breast, the axilla of the right breast and the retroareolar of the right breast were scanned. Targeted ultrasound. At the 9:00 position 1 cm distance from nipple there is 2.0 x 1.0 x 1.6 cm simple appearing thin-walled cyst believed to be corresponding to the mammogram abnormality. Overall Assessment: Benign, BI-RAD 2 Management: Screening Mammogram of both breasts in 1 year. Return to routine follow-up. A clinical breast exam by your physician is recommended on an annual basis and results should be correlated with mammographic findings. This exam should not preclude additional follow-up of suspicious palpable abnormalities. Results were given to the patient verbally at the time of exam. [facility], , 02/12/2025 6:39 AM. Electronically signed and approved by: Arun Car M.D.
== END | disposition home or self-care (01) ==
LOC: RADUSWWP 15:25
PROVIDERS: ATTEND Family Medicine
DX: R92.8 Other abnormal and inconclusive findings on diagnostic imaging of breast (principal); Z92.0 Personal history of contraception; Z80.3 Family history of malignant neoplasm of breast